=== PATIENT | female | born 1985 | race Caucasian/White ===

== ENCOUNTER 2020-04-20 11:11 | Emergency (ER) | payer OTHER, SELFPAY ==
[2020-04-20] VITALS (7 sets, daily range): BP systolic 94–114; BP diastolic 56–77; PULSE 71–88; RESP 14–18; TEMP 36.4–36.8; O2SAT 98–100
--- NOTE | ~2020-04-20 | CT_ITS ---
EXAMINATION: CT brain wo con EXAM DATE: 04/20/2020 13:44 INDICATION: Dizziness. TECHNIQUE: Spiral CT of the head was performed without contrast. Axial, coronal and sagittal images were reviewed. The dose-length product (DLP) for this examination was 605.33 mGy-cm. The exposure w as tailored according to patient size, and iterative reconstruction (ASIR) was used as additional dos e reduction technique. Comparison is made to prior examination from 05/27/2008. FINDINGS: There is no acute intraparenchymal hemorrhage. No evidence of intraparenchymal brain mass lesion. No evidence of acute infarction. There is no mass effect or midline shift. The ventricles are normal in size. There are no extra-axial collections. There are no acute calvarial fractures. T he orbits are unremarkable. Soft tissue is unremarkable. The visualized sinuses and mastoid air dimas ls are well aerated. IMPRESSION: 1. Normal head CT examination. Reviewed, dictated and finalized at location B.
--- NOTE | 2020-04-20 13:05 | ECG_ITS ---
Measurements Intervals [place] Rate: 64 P: 78 MI: 168 QRS: 81 QRSD: 93 T: 67 QT: 374 QTc: 386 Interpretive Statements SINUS RHYTHM NORMAL ECG Electronically Signed On 04-20-2020 13:30:38 CDT by Juan Lacy D.O.
[2020-04-20 13:15] LABS: Basophils Percent Auto 0.4 % (0.2-1.2); Eosinophils Absolute Auto 0.2 K/mm3 (0-0.3); Eosinophils Percent Auto 1.6 % (0-4.4); Hematocrit 38.4 % (37.0-47.0); Hemoglobin 12.7 g/dL (12.0-15.0); Immature Granulocyte Absolute 0.04 K/mm3 (0.00-0.031); Immature Granulocyte Percent A 0.4 % (0-0.5); Lymphocytes Absolute Auto 1.43 K/mm3 (0.9-3.2); Mean Corpuscular HGB Conc 33.1 g/dl (32-36); Mean Corpuscular Hemoglobin 30.8 pg (26-34); Mean Platelet Volume 9.9 fl (7.4-10.4); Monocytes Absolute Auto 0.7 K/mm3 (0.1-0.6); Monocytes Percent Auto 6.8 % (2.6-8.5); Neutrophils Absolute Auto 7.2 K/mm3 (1.3-6.7); Neutrophils Percent Auto 75.8 % (45.5-73.1); Platelet Count Result 193 k/mm3 (150-375); Red Blood Count 4.13 M/mm3 (4.2-5.4); Red Cell Distribution Width 12.5 % (11.5-14.5); White Blood Count 9.5 K/mm3 (4.5-10.0)
--- NOTE | 2020-04-20 13:22 | ED.GENADULT ---
HPI - General Adult General Chief complaint: Syncope Stated complaint: lightheaded/dizzy Time Seen by Provider: 04/20/20 13:04 Source: patient History of Present Illness HPI narrative: Patient is a 34 y/o female complaining of dizziness and light-headedness starting about 9:30 AM this morning. She states that her dizziness is moderate. [place] started to feel dizzy. She also had some transient blurred vision, difficulty with seeing things. She also felt like unsteady and can't walk straight. She denies passing out or falling down. She denies any pain. Related Data Allergies Allergy/AdvReac Type Severity Reaction Status Date / Time latex AdvReac Mild Rash Verified 11/09/18 17:20 Review of Systems Constitutional: Constitutional: Denies chills, Denies fever(s), Denies headache(s) and Denies weakness Eyes: Eyes: Denies blurry vision ENT: Denies headache(s) and Denies neck pain Cardiovascular: Cardiovascular: Denies chest pain and Denies dyspnea Respiratory: Respiratory: Denies cough and Denies dyspnea Gastrointestinal: Gastrointestinal: Denies abdominal pain, Denies diarrhea, Denies nausea and Denies vomiting Genitourinary: Genitourinary: Denies hematuria and Denies dysuria Musculoskeletal: Musculoskeletal: Denies back pain and Denies neck pain Neurologic: Reports dizziness, Reports headache(s), Reports lack of coordination, Reports Other visual disturbances and Denies weakness [facility] Social History Social History Smoking status: Current every day smoker Alcohol intake: current Gender identity (if verbalized by the patient): Female Exam Const: General: no acute distress and well developed Orientation/consciousness: oriented to person, oriented to place, oriented to time and patient oriented x3 HENMT: Head: normocephalic Ears: external ears normal General nose exam: Normal external nose present Eyes: General: appearance normal, both eyes and all related structures Conjunctivae: conjunctivae normal Neck: Neck: normal visual inspection and full ROM Chest: Chest palpation & inspection: normal inspection of the chest and no tenderness Resp: Effort & Inspection: normal respiratory effort Auscultation: clear to auscultation bilaterally Cardio: Rate: regular rate Rhythm: regular rhythm GI: GI Palp: No abdominal tenderness and Yes Soft to palpation Skin: General skin exam: normal color and turgor normal Neuro: General: oriented to person, oriented to place, oriented to time and patient oriented x3 Cranial nerves: Yes CN's II-XII intact bilaterally Cognition (Neuro): normal cognition Speech: normal speech Motor exam (neuro): 5/5 motor strength present throughout Sensory Exam: normal sensation Coordination: [id number] test normal and [id number] test normal Extrem: General: normal to inspection, full ROM and no pedal edema Psych: Appearance: grossly normal Mental Status: mental status grossly normal Affect: normal affect Course Reevaluation(s) Reevaluation #1: Rechecked. Patient feels better. She is able to ambulate without difficulty. Date: 04/20/20 Vital Signs Vital signs: Vital Signs Temperature 36.4 C 04/20/20 11:30 Pulse Rate 83 04/20/20 11:30 Respiratory Rate 18 04/20/20 11:30 Blood Pressure 100/72 04/20/20 11:30 Pulse Oximetry 100 04/20/20 11:30 Temperature 36.8 C 04/20/20 13:03 Pulse Rate 84 04/20/20 16:37 Respiratory Rate 16 04/20/20 16:37 Blood Pressure 94/56 L 04/20/20 16:37 Pulse Oximetry 98 04/20/20 16:37 Medical Decision Making Vital Signs Vital Signs: Vital Signs Temperature 36.4 C 04/20/20 11:30 Pulse Rate 83 04/20/20 11:30 Respiratory Rate 18 04/20/20 11:30 Blood Pressure 100/72 04/20/20 11:30 Pulse Oximetry 100 04/20/20 11:30 Temperature 36.8 C 04/20/20 13:03 Pulse Rate 84 04/20/20 16:37 Respiratory Rat
[2020-04-20 13:29] LABS: Alanine Aminotransferase 23 U/L (4-35); Albumin Level 4.2 g/dL (3.5-5.1); Alkaline Phosphatase 61 U/L (38-126); Anion Gap 6 mmol/L (8-16); Aspartate Amino Transferase 25 U/L (14-36); Bilirubin,Total 0.3 mg/dL (0.2-1.3); Blood Urea Nitrogen 16 mg/dL (7-17); Calcium 9.3 mg/dL (8.4-10.2); Carbon Dioxide 27 mmol/L (22-30); Chloride 105 mmol/L (98-107); Estimated CRCL calculation 85 ml/min; Estimated Glomerular Filt Rate > 60; Glucose 94 mg/dL (65-105); Sodium 138 mmol/L (137-145)
[2020-04-20] MEDS: SODIUM CHLORIDE 0.9% IV 1,000 ML 999 ML IV CONT (13:49)
[2020-04-20 16:04] LABS: Add Urine Microscopic? YES; Appearance Urine Cloudy (Clear); Bacteria Urine 2+ /hpf; Bilirubin Urine Negative (Negative); Blood Urine Negative (Negative); Color Urine Yellow (Yellow); Glucose Urine UA Negative (Negative); Ketones Urine 1+ mg/dL (Negative); Leukocyte Esterase Ur Negative LEU/UL (Negative); Mucus Urine Heavy /lpf; Nitrate Urine Negative (Negative); Protein Urine 2+ mg/dL (Negative); Specific Grav Ur 1.021 (1.001-1.035); Squamous Epithelial Cell Urine Many /hpf (Few); Urobilinogen Urine Negative mg/dL (<2.0); WBC Urine 16-20 /hpf
== END 2020-04-20 18:07 | disposition home or self-care (01) ==
PROVIDERS: Emergency Provider Emergency Medicine; PCP Family Medicine
DX: R42 Dizziness and giddiness (principal); F17.203 Nicotine dependence unspecified, with withdrawal; R82.998 Other abnormal findings in urine
CPT/HCPCS: 36415; 70450; 80053; 81001; 81025; 85025; 87086; 93005; 99284; J7030

== ENCOUNTER 2020-09-27 14:07 | Emergency (ER) | payer OTHER, SELFPAY ==
[2020-09-27 14:47] VITALS: BP 118/69; PULSE 96; RESP 16; TEMP 36.2; O2SAT 99
--- NOTE | 2020-09-27 14:47 | ED.FEMALEGU ---
HPI - Female Genitourinary General Chief complaint: Urogenital-Female Stated complaint: pain when urination Time Seen by Provider: 09/27/20 14:47 Source: patient Mode of arrival: ambulatory Limitations: no limitations History of Present Illness HPI Narrative: Pavithra Zavala is a 35 yo female with a PMH depression, ADD, borderline personality disorder, bipolar personality, who comes to [facility] with complaints of dysuria for the last 2 days, had blood in her urine yesterday. No vomiting diarrhea no fever Related Data Home Medications Medication Instructions Recorded Confirmed albuterol sulfate 90 mcg INHALATION ACINSULIN 09/27/20 09/27/20 dextroamphetamine-amphetamine 10 mg PO DAILY 09/27/20 09/27/20 lamotrigine 100 mg PO BID 09/27/20 09/27/20 mirtazapine 15 mg PO HS 09/27/20 09/27/20 oxcarbazepine 300 mg PO BID 09/27/20 09/27/20 prazosin 1 mg PO HS 09/27/20 09/27/20 Allergies Allergy/AdvReac Type Severity Reaction Status Date / Time latex AdvReac Mild Rash Verified 11/09/18 17:20 Review of Systems Review of Systems: Narrative: CONSTITUTIONAL: Denies fever, chills, sweats. EYES: Denies visual changes, redness, discharge. ENT: Denies rhinorrhea, congestion, sore throat, otalgia. CARDIOVASCULAR: Denies chest pain, palpitations, edema. RESPIRATORY: denies dyspnea, wheezing, cough GASTROINTESTINAL: Denies abdominal pain, nausea, vomiting, diarrhea. GENITOURINARY: has dysuria, hematuria, abnormal discharge SKIN: Denies rash or itching. NEUROLOGIC: Denies numbness, or focal weakness. PSYCHIATRIC: Denies anxiety or depression. [facility] Past Medical History Medical History (Updated 09/27/20 @ 15:03 by Kim Qureshi CNP) ADHD Anxiety Asthma Bipolar 1 disorder Borderline personality disorder Depression Family History Family History Other Depression Hypertension Social History Social History Smoking status: Current every day smoker Alcohol intake: current Gender identity (if verbalized by the patient): Female Comments At time of signature, I agree with nursing past medical, surgical, social and family history. There is no relevant family history pertinent to the presenting complaint. Exam Narrative: Exam Narrative: GENERAL: This is a well-nourished, well-developed patient, in mild distress. HEAD: normocephalic, atraumatic. EYES: Sclera clear/white. Vision is grossly intact. EARS: External ears normal, Hearing grossly intact. NOSE: External nose normal without nasal discharge, nares without redness, no rhinorrhea. THROAT: Mucous membranes moist, NECK: Neck supple, CARDIOVASCULAR: Regular rate and rhythm without murmurs, gallops, or rubs. RESPIRATORY: Clear to auscultation. Breath sounds equal bilaterally. No wheezes, rales, or rhonchi. GASTROINTESTINAL: Abdomen soft, non-tender, SKIN: warm, intact with no suspicious lesions or rash, good texture and turgor. NEURO: awake, alert, and oriented to person, place and time. There were no obvious focal neurologic abnormalities. Steady gait EXTREMITIES: Normal range of motion. BACK: Nontender without deformity Course Course Emergency Course: Came to [facility] for urinary frequency and cramping at the end of urinating. Started yesterday UA showed trace leukocytes and 2+ blood 2+ protein Start on Keflex and Pyridium Given instructions on hydration and caring for UTI Vital Signs Vital signs: Vital Signs Temperature 97.1 F L 09/27/20 14:47 Pulse Rate 96 09/27/20 14:47 Respiratory Rate 16 09/27/20 14:47 Blood Pressure 118/69 09/27/20 14:47 Pulse Oximetry 99 09/27/20 14:47 Temperature 97.1 F L 09/27/20 14:47 Pulse Rate 96 09/27/20 14:47 Respiratory Rate 16 09/27/20 14:47 Blood Pressure 118/69 09/27/20 14:47 Pulse Oximetry 99 09/27/20 14:47 MDM - Female Genitourinary Differential Diagnosis
== END 2020-09-27 15:08 | disposition home or self-care (01) ==
PROVIDERS: Emergency Provider Nurse Practitioner
DX: N30.01 Acute cystitis with hematuria (principal); F17.200 Nicotine dependence, unspecified, uncomplicated; F31.9 Bipolar disorder, unspecified; F90.9 Attention-deficit hyperactivity disorder, unspecified type; J45.909 Unspecified asthma, uncomplicated
CPT/HCPCS: 81003; 87077; 87086; 87088; 87186; 99213; G0463

== ENCOUNTER 2021-06-29 19:33 | Emergency (ER) | payer OTHER, SELFPAY ==
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
[2021-06-29 19:39] VITALS: BP 118/72; PULSE 96; RESP 16; TEMP 36.7; O2SAT 100
[2021-06-29 21:11] VITALS: BP 117/82; PULSE 97; RESP 20; TEMP 36.7; O2SAT 99
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
[2021-06-29] MEDS: KETOROLAC 30 MG/ML VIAL (*BKC) IM (22:03)
== END 2021-06-29 22:35 | disposition home or self-care (01) ==
PROVIDERS: Emergency Provider Emergency Medicine; PCP Family Medicine
DX: S16.1XXA Strain of muscle, fascia and tendon at neck level, initial encounter (principal); R07.89 Other chest pain; F90.9 Attention-deficit hyperactivity disorder, unspecified type; F41.9 Anxiety disorder, unspecified; J45.909 Unspecified asthma, uncomplicated; F31.9 Bipolar disorder, unspecified; F60.3 Borderline personality disorder; F17.200 Nicotine dependence, unspecified, uncomplicated; V47.5XXA Car driver injured in collision with fixed or stationary object in traffic accident, initial encounter
CPT/HCPCS: 71046; 72040; 96372; 99284; J1885; L0140

== ENCOUNTER 2022-01-22 12:41 | Emergency (ER) | payer OTHER, SELFPAY ==
--- NOTE | 2022-01-22 13:12 | ED.GENADULT ---
HPI - General Adult General Chief complaint: Dental/Oral Stated complaint: dental issues Time Seen by Provider: 01/22/22 13:12 Source: patient Mode of arrival: ambulatory Limitations: no limitations History of Present Illness HPI narrative: 36-year-old female patient presents to the [facility] with complaints of right upper dental pain for the past week. Patient denies take anything for the pain. Patient states she is does not have a dentist to follow-up with. Denies any open or drainage wounds. Denies any swelling. Patient states she is a active smoker. Related Data Home Medications Medication Instructions Recorded Confirmed metoprolol succinate 1 tab-cap PO DAILY 01/22/22 01/22/22 Allergies Allergy/AdvReac Type Severity Reaction Status Date / Time latex AdvReac Mild Rash Verified 01/22/22 12:55 Review of Systems Review of Systems: CONSTITUTIONAL: Denies fever, chills, or sweats. EYES: Denies visual changes, redness, or discharge. ENT: Denies rhinorrhea, congestion, sore throat, or otalgia. Positive right upper dental pain x1 week CARDIOVASCULAR: Denies chest pain, palpitations, or edema. RESPIRATORY: Denies cough or dyspnea. GASTROINTESTINAL: Denies abdominal pain, nausea, vomiting, or diarrhea. GENITOURINARY: Denies dysuria or hematuria. SKIN: Denies rash or itching. MUSCULOSKELETAL: Denies back pain, joint pain, or myalgia. NEUROLOGIC: Denies headache, numbness, or weakness. PSYCHIATRIC: Denies anxiety or depression. PMFSH Past Medical History Medical History ADHD Anxiety Asthma Bipolar 1 disorder Borderline personality disorder Depression Family History Family History Other Depression Hypertension Social History Social History Smoking status: Current every day smoker Alcohol intake: current Gender identity (if verbalized by the patient): Female Comments At the time of my signature I agree with nursing past medical history, surgical, social, and family history. There is no relevant family history pertinent to the presenting complaint. Exam Narrative: GENERAL: Well-appearing, well-nourished, and in no acute distress. HEAD: Normocephalic, atraumatic. EYES: PERRLA and EOMI. ENT: Nares clear, no rhinorrhea or epistaxis. Mucous membranes moist. Patient does have some swollen gums with fiery red erythema noted to the right upper oral cavity from the right cuspid all the way back to the about the second molar. No obvious abscess is noted. No swelling to the face noted. NECK: Supple. No lymphadenopathy CHEST: Clear to auscultation. No respiratory distress. HEART: Regular rate and rhythm. No murmur heard. Normal peripheral pulses. ABDOMEN: Soft, nontender, nondistended, normal active bowel sounds. EXTREMITIES: Normal range of motion. No edema. SKIN: Warm, dry, no rash. NEURO: No focal deficits. Alert and oriented x3. Course Course Level of Care: Express Care Visit Vital Signs Vital signs: Vital Signs Temperature 36.7 C 01/22/22 13:18 Pulse Rate 89 01/22/22 13:18 Respiratory Rate 18 01/22/22 13:18 Blood Pressure 131/90 01/22/22 13:18 Pulse Oximetry 100 01/22/22 13:18 Oxygen Delivery Room Air 01/22/22 13:18 Temperature 36.7 C 01/22/22 13:18 Pulse Rate 89 01/22/22 13:18 Respiratory Rate 18 01/22/22 13:18 Blood Pressure 131/90 01/22/22 13:18 Pulse Oximetry 100 01/22/22 13:18 Oxygen Delivery Room Air 01/22/22 13:18 Vital signs reviewed The patient has been informed that they may have pre-hypertension or Hypertension based on a BP reading in the department. I recommend that the patient call the primary care provider listed on their discharge instructions or a physician of their choice this week to arrange follow up for further evaluation of possible pre-hypertension or Hypertens
[2022-01-22 13:18] VITALS: BP 131/90; PULSE 89; RESP 18; TEMP 36.7; O2SAT 100
== END 2022-01-22 14:06 | disposition home or self-care (01) ==
PROVIDERS: Emergency Provider Nurse Practitioner Family; PCP Family Medicine
DX: K02.9 Dental caries, unspecified (principal); F17.200 Nicotine dependence, unspecified, uncomplicated; J45.909 Unspecified asthma, uncomplicated
CPT/HCPCS: 99213; G0463

== ENCOUNTER 2022-10-17 19:01 | Emergency (ER) | payer OTHER, SELFPAY ==
[2022-10-17 19:11] VITALS: BP 108/76; PULSE 86; RESP 16; TEMP 36.5; O2SAT 100
--- NOTE | 2022-10-17 19:32 | ED.DENTAL ---
HPI - Dental/Oral General Chief complaint: Dental/Oral Stated complaint: Dental Pain Time Seen by Provider: 10/17/22 19:32 Mode of arrival: ambulatory Limitations: no limitations History of Present Illness HPI Narrative: 37-year-old female presents concern for dental pain, broken tooth, pain inside her mouth. She reports she broke a tooth in April, the last several days the tooth has been rubbing on her gums causing pain on the inside of her mouth. Reports it is painful to chew. Reports she has been using [id number] dental pain reliever. She also reports lower right dental pain MD Complaint: tooth pain Related Data Home Medications Medication Instructions Recorded Confirmed levothyroxine 200 mcg tablet 200 mcg PO DAILY 10/17/22 10/17/22 quetiapine 50 mg tablet,extended 50 mg PO DAILY 10/17/22 10/17/22 release 24 hr Allergies Allergy/AdvReac Type Severity Reaction Status Date / Time latex AdvReac Mild Rash Verified 10/17/22 19:18 Review of Systems Review of Systems: CONSTITUTIONAL: Denies malaise, chills, sweats, or fever. EYES: Denies visual changes ENT: Denies rhinorrhea, congestion, sinus pain, otalgia or sore throat. Reports right upper and lower dental pain, pain inside her cheek CARDIOVASCULAR: Denies chest pain, palpitations RESPIRATORY: Denies cough or dyspnea. SKIN: Denies rash or itching. MUSCULOSKELETAL: Denies myalgia. NEUROLOGIC: Denies numbness, weakness, or headache. All systems reviewed & are unremarkable except as noted in HPI and below PMFSH Past Medical History Medical History ADHD Anxiety Asthma Bipolar 1 disorder Borderline personality disorder Depression Family History Family History Other Depression Hypertension Social History Social History Smoking status: Current every day smoker Alcohol intake: current Gender identity (if verbalized by the patient): Female Comments At time of signature, agree with nursing past medical, surgical, social and family history. There is no relevant family history pertinent to the presenting complaint Exam Narrative: GENERAL: Well-appearing, well-nourished, and in no acute distress. HEAD: Normocephalic, atraumatic. EYES: PERRLA, sclera clear ENT: Nares clear, turbinates pink, no rhinorrhea or epistaxis. Mucous membranes moist. TM pearly weaver with sharp light reflex bilaterally; no tragal tenderness. Oropharynx without erythema or lesions. Tonsils not enlarged and without exudate. Right-sided missing teeth, broken teeth, caries; tooth number 2 broken with the surrounding mucosa erythematous, excoriated, edematous related to trauma from the broken to NECK: Supple. No lymphadenopathy. CHEST: No respiratory distress. Speaks in full sentences. HEART: Regular rate and rhythm. SKIN: Warm, dry, no visible rash. NEURO: Alert and oriented x3. PSYCH: Normal mood and affect Course Course Emergency Course: Patient is aware of diagnosis, understands and agrees to treatment plan. Anticipatory guidance given. Patient agrees to follow-up as directed and is aware of reasons to seek care at the emergency department. Portions of this record may have been created with voice recognition software Level of Care: Express Care Visit Vital Signs Vital signs: Vital Signs Temperature 97.7 F 10/17/22 19:11 Pulse Rate 86 10/17/22 19:11 Respiratory Rate 16 10/17/22 19:11 Blood Pressure 108/76 10/17/22 19:11 Pulse Oximetry 100 10/17/22 19:11 Oxygen Delivery Room Air 10/17/22 19:11 Temperature 97.7 F 10/17/22 19:11 Pulse Rate 86 10/17/22 19:11 Respiratory Rate 16 10/17/22 19:11 Blood Pressure 108/76 10/17/22 19:11 Pulse Oximetry 100 10/17/22 19:11 Oxygen Delivery Room Air 10/17/22 19:11 Reviewed. MDM - Dental/Oral MDM Narrative M
== END 2022-10-17 19:46 | disposition home or self-care (01) ==
PROVIDERS: Emergency Provider Nurse Practitioner; PCP Family Medicine
DX: K08.89 Other specified disorders of teeth and supporting structures (principal); K13.70 Unspecified lesions of oral mucosa; F17.200 Nicotine dependence, unspecified, uncomplicated; J45.909 Unspecified asthma, uncomplicated; F31.9 Bipolar disorder, unspecified
CPT/HCPCS: 99213; G0463

== ENCOUNTER 2022-12-30 16:30 | Emergency (ER) | payer OTHER, SELFPAY ==
--- NOTE | 2022-12-30 16:44 | PC.NURSE ---
in br to obtain ua spec.
[2022-12-30 16:55] VITALS: BP 107/72; PULSE 81; RESP 16; TEMP 36.8; O2SAT 99
--- NOTE | 2022-12-30 17:08 | ED.FEMALEGU ---
HPI - Female Genitourinary General Chief complaint: Urogenital-Female Stated complaint: UTI Time Seen by Provider: 12/30/22 17:02 Source: patient and RN notes reviewed Mode of arrival: ambulatory Limitations: no limitations History of Present Illness HPI Narrative: Patient presents today with a one-week history of dysuria, urinary frequency, and low back pain. Denies abdominal pain, fever, nausea or vomiting. Currently rates her back pain 5/10 and has tried no [id number] treatment prior to arrival. No recent antibiotic use. Related Data Home Medications Medication Instructions Recorded Confirmed levothyroxine 200 mcg tablet 200 mcg PO DAILY 10/17/22 10/17/22 Vraylar 12/30/22 albuterol sulfate 90 mcg/actuation inhalation 12/30/22 aerosol inhaler mirtazapine 15 mg tablet mg 12/30/22 Allergies Allergy/AdvReac Type Severity Reaction Status Date / Time latex AdvReac Mild Rash Verified 12/30/22 16:42 Review of Systems Review of Systems: CONSTITUTIONAL: Denies body aches, fever, chills, or sweats. EYES: Denies visual changes, redness, or discharge. ENT: Denies rhinorrhea, congestion, sore throat, or otalgia. CARDIOVASCULAR: Denies chest pain, palpitations, or edema. RESPIRATORY: Denies cough or dyspnea. GASTROINTESTINAL: Denies abdominal pain, nausea, vomiting, or diarrhea. GENITOURINARY: Denies hematuria.+ dysuria, frequency SKIN: Denies rash, itching, or wounds. MUSCULOSKELETAL: Denies joint pain, or myalgia.+ back pain NEUROLOGIC: Denies headache, numbness, tingling, or weakness. PSYCH: Denies depression or anxiety. [facility] Past Medical History Medical History ADHD Anxiety Asthma Bipolar 1 disorder Borderline personality disorder Depression Family History Family History Other Depression Hypertension Social History Social History Smoking status: Current every day smoker Alcohol intake: current Gender identity (if verbalized by the patient): Female Comments At time of signature, I have reviewed and agree with nursing past medical, surgical, social and family history unless otherwise noted. Please see nursing chart for further information. There is no relevant family history pertinent to the presenting complaint Exam Narrative: GENERAL: Well-appearing, well-nourished, and in no acute distress. HEAD: Normocephalic, atraumatic. EYES: EOMI. No redness or drainage. Conjunctivae normal. ENT: Mucous membranes pink and moist. NECK: Normal AROM. CHEST: No respiratory distress. Clear to auscultation. HEART: Regular rate and rhythm. No murmur appreciated. Normal peripheral pulses. ABDOMEN: Soft, nontender, nondistended, normal active bowel sounds. EXTREMITIES: Normal range of motion. No edema. SKIN: Warm, dry, no rash. Capillary refill normal. Normal skin turgor. NEURO: No focal deficits. Alert and oriented x3. Gait steady. PSYCH: Normal affect. No signs of depression or anxiety. Course Course Level of Care: Express Care Visit Vital Signs Vital signs: Vital Signs Temperature 98.3 F 12/30/22 16:55 Pulse Rate 81 12/30/22 16:55 Respiratory Rate 16 12/30/22 16:55 Blood Pressure 107/72 12/30/22 16:55 Pulse Oximetry 99 12/30/22 16:55 Oxygen Delivery Room Air 12/30/22 16:55 Temperature 98.3 F 12/30/22 16:55 Pulse Rate 81 12/30/22 16:55 Respiratory Rate 16 12/30/22 16:55 Blood Pressure 107/72 12/30/22 16:55 Pulse Oximetry 99 12/30/22 16:55 Oxygen Delivery Room Air 12/30/22 16:55 Reviewed MDM - Female Genitourinary MDM Narrative Medical decision making narrative: UA suggests infection. Will treat with Keflex. Patient also requesting prescription for Diflucan. Anticipatory guidance given. Differential Diagnosis Differential diagnosis: L
== END 2022-12-30 17:15 | disposition home or self-care (01) ==
PROVIDERS: Emergency Provider Nurse Practitioner; PCP Family Medicine
DX: N30.01 Acute cystitis with hematuria (principal); B95.1 Streptococcus, group B, as the cause of diseases classified elsewhere; F17.200 Nicotine dependence, unspecified, uncomplicated; J45.909 Unspecified asthma, uncomplicated
CPT/HCPCS: 81003; 87077; 87086; 87088; 99213; G0463

== ENCOUNTER 2023-01-11 23:41 | Emergency (ER) | payer OTHER, SELFPAY ==
[2023-01-11 23:50] VITALS: BP 122/83; PULSE 107; RESP 14; TEMP 36.7; O2SAT 97
[2023-01-12 00:54] VITALS: BP 119/95; PULSE 80; RESP 18; O2SAT 100
[2023-01-12] MEDS: SODIUM CHLORIDE 0.9% IV 1,000 ML 999 ML IV CONT (01:08)
[2023-01-12 01:22] LABS: Appearance Urine Clear (Clear); Bacteria Urine 4+ /hpf; Bilirubin Urine Negative (Negative); Blood Urine Negative (Negative); Color Urine Yellow (Yellow); Glucose Urine UA Negative (Negative); Ketones Urine Negative (Negative); Leukocyte Esterase Ur 2+ LEU/UL (Negative); Nitrate Urine Positive (Negative); Non Pathogenic Casts 0-2; Protein Urine 1+ mg/dL (Negative); RBC Urine 0-2 /hpf (0-2); Specific Grav Ur 1.021 (1.001-1.035); Squamous Epithelial Cell Urine Occasional /hpf (Few); WBC Urine 51-100 /hpf; pH Urine 6.5 (5.0-9.0)
[2023-01-12 01:26] LABS: Add Urine Microscopic? YES
[2023-01-12 01:34] LABS: Basophils Absolute Auto 0.1 K/mm3 (0.0-0.1); Basophils Percent Auto 0.9 % (0.2-1.2); Eosinophils Absolute Auto 0.2 K/mm3 (0-0.3); Eosinophils Percent Auto 2.4 % (0-4.4); Hematocrit 37.8 % (37.0-47.0); Hemoglobin 12.2 g/dL (12.0-15.0); Immature Granulocyte Absolute 0.05 K/mm3 (0.00-0.031); Immature Granulocyte Percent A 0.6 % (0-0.5); Lymphocytes Absolute Auto 3.17 K/mm3 (0.9-3.2); Mean Corpuscular HGB Conc 32.3 g/dl (32-36); Mean Corpuscular Volume 99.2 fl (80-100); Mean Platelet Volume 9.3 fl (7.4-10.4); Monocytes Absolute Auto 0.7 K/mm3 (0.1-0.6); Monocytes Percent Auto 7.3 % (2.6-8.5); Neutrophils Absolute Auto 4.9 K/mm3 (1.3-6.7); Neutrophils Percent Auto 53.8 % (45.5-73.1); Platelet Count Result 304 k/mm3 (150-375); Red Blood Count 3.81 M/mm3 (4.2-5.4); Red Cell Distribution Width 13.8 % (11.5-14.5); White Blood Count 9.1 K/mm3 (4.5-10.0)
[2023-01-12 01:37] LABS: Alanine Aminotransferase 42 U/L (6-35); Albumin Level 4.9 g/dL (3.5-5.1); Alkaline Phosphatase 58 U/L (38-126); Anion Gap 5 mmol/L (8-16); Aspartate Amino Transferase 68 U/L (14-36); Bilirubin,Total 0.6 mg/dL (0.2-1.3); Blood Urea Nitrogen 18 mg/dL (7-17); Calcium 9.7 mg/dL (8.4-10.2); Carbon Dioxide 34 mmol/L (22-30); Chloride 101 mmol/L (98-107); Estimated Glomerular Filt Rate 55; Glucose 91 mg/dL (65-110); Potassium 3.3 mmol/L (3.4-5.0); Sodium 140 mmol/L (137-145)
--- NOTE | 2023-01-12 01:51 | ED.FEMALEGU ---
HPI - Female Genitourinary General Chief complaint: Urogenital-Female Stated complaint: UTI? Time Seen by Provider: 01/12/23 01:38 History of Present Illness HPI Narrative: 37-year-old female presented to the emergency department for evaluation of burning with urination. Patient was recently treated for a urinary tract infection 12/30 and patient was started on Keflex. Patient does report some mild abdominal pain and burning with urination. Patient states her symptoms have not improved since being on antibiotics. Urine culture showed normal sabino. Patient states she has also been having discharge consistent with a yeast infection. Related Data Home Medications Medication Instructions Recorded Confirmed levothyroxine 200 mcg tablet 200 mcg PO DAILY 10/17/22 10/17/22 Vraylar 12/30/22 albuterol sulfate 90 mcg/actuation inhalation 12/30/22 aerosol inhaler mirtazapine 15 mg tablet mg 12/30/22 Allergies Allergy/AdvReac Type Severity Reaction Status Date / Time latex AdvReac Mild Rash Verified 01/12/23 00:59 Review of Systems Review of Systems: All systems reviewed & are unremarkable except as noted in HPI and below PMFSH Past Medical History Medical History ADHD Anxiety Asthma Bipolar 1 disorder Borderline personality disorder Depression Family History Family History Other Depression Hypertension Social History Social History Smoking status: Current every day smoker Alcohol intake: current Gender identity (if verbalized by the patient): Female Exam Narrative: APPEARANCE: Well appearing, no pain, no distress, well-nourished. HEAD: normocephalic, atraumatic. EYES: PERRLA/EOMI, conjunctivae clear. NOSE: Normal no drainage NECK: Supple. No adenopathy, no masses. RESPIRATORY: Airway patent, respirations nonlabored. Clear to auscultation bilaterally, no rales, rhonchi, wheezing. CARDIOVASCULAR: Regular rate and rhythm without murmurs rubs or gallops. ABDOMINAL: Soft, suprapubic tenderness MUSCULOSKELETAL: Moves all extremities. Strength/ROM intact, No edema, No calf tenderness. NEURO: Alert. Cranial nerves II through XII intact. Grossly intact SKIN: Warm, dry. Normal Color Course Course Emergency Course: 37-year-old female presented to ED for evaluation of worsening urinary tract infection. UA is consistent with a UTI. Patient is afebrile with no leukocytosis. Urine culture is pending. Patient was started on Levaquin and Keflex was stopped. New urine culture was ordered. Patient was also started on fluconazole for her yeast infection. Patient was provided Pyridium for her dysuria. Patient was encouraged of close follow-up with her primary care physician. Vital Signs Vital signs: Vital Signs Temperature 98.1 F 01/11/23 23:50 Pulse Rate 107 H 01/11/23 23:50 Respiratory Rate 14 01/11/23 23:50 Blood Pressure 122/83 01/11/23 23:50 Pulse Oximetry 97 01/11/23 23:50 Temperature 98.1 F 01/11/23 23:50 Pulse Rate 80 01/12/23 00:54 Respiratory Rate 18 01/12/23 00:54 Blood Pressure 119/95 H 01/12/23 00:54 Pulse Oximetry 100 01/12/23 00:54 Oxygen Delivery Room Air 01/12/23 00:54 MDM - Female Genitourinary Differential Diagnosis Differential diagnosis: Likely urinary tract infection, bacterial vaginosis and cystitis Lab Data Attestation: I reviewed the patient's lab results. 01/12/23 01:10 01/12/23 01:10 Labs: Lab Results 01/12/23 Range/Units 01:10 WBC 9.1 (4.5-10.0) K/mm3 RBC 3.81 L (4.2-5.4) M/mm3 Hgb 12.2 (12.0-15.0) g/dL Hct 37.8 (37.0-47.0) % MCV 99.2 (80-100) fl MCH 32.0 (26-34) pg MCHC 32.3 (32-36) g/dl RDW 13.8 (11.5-14.5) % Plt Count 304 D (150-375) k/mm3 MPV 9.3 (7.4-10.4) fl Immatur
[2023-01-12] MEDS: levoFLOXacin 750 MG TABLET PO (02:45)
[2023-01-12] MEDS: FLUCONAZOLE 150 MG TABLET PO (02:45)
== END 2023-01-12 02:55 | disposition home or self-care (01) ==
PROVIDERS: Emergency Provider Emergency Medicine; PCP Family Medicine
DX: N39.0 Urinary tract infection, site not specified (principal); B37.31 Acute candidiasis of vulva and vagina; J45.909 Unspecified asthma, uncomplicated; F90.9 Attention-deficit hyperactivity disorder, unspecified type; F41.9 Anxiety disorder, unspecified; F31.9 Bipolar disorder, unspecified; F60.3 Borderline personality disorder; F17.200 Nicotine dependence, unspecified, uncomplicated
CPT/HCPCS: 36415; 80053; 81001; 85025; 87077; 87086; 87088; 87186; 96360; 99283; A9270; J7030

== ENCOUNTER 2023-01-16 14:54 | Emergency (ER) | payer OTHER, SELFPAY ==
[2023-01-16 15:13] VITALS: BP 109/74; PULSE 88; RESP 16; TEMP 37.6; O2SAT 100
--- NOTE | 2023-01-16 15:27 | ED.FEMALEGU ---
HPI - Female Genitourinary General Chief complaint: Urogenital-Female Stated complaint: STD testing Time Seen by Provider: 01/16/23 15:27 Source: patient and RN notes reviewed Mode of arrival: ambulatory Limitations: no limitations History of Present Illness HPI Narrative: 37-year-old female presented for STD testing. About 3 days ago she was informed by her partner he tested positive for syphilis. Reports white vaginal discharge for a long time. Patient is currently treated with levaquin for a UTI. Reports frequent BV infections. Denies abdominal pain, flank pain, dyspareunia, n/v/d/f/c. Hx hysterectomy. Related Data Home Medications Medication Instructions Recorded Confirmed levothyroxine 200 mcg tablet 200 mcg PO DAILY 10/17/22 10/17/22 metoprolol tartrate 25 mg tablet mg 01/16/23 01/16/23 Allergies Allergy/AdvReac Type Severity Reaction Status Date / Time latex AdvReac Mild Rash Verified 01/16/23 15:12 Review of Systems Review of Systems: CONSTITUTIONAL: Denies body aches, fever, chills, or sweats. CARDIOVASCULAR: Denies chest pain, palpitations, or edema. RESPIRATORY: Denies cough or dyspnea. GASTROINTESTINAL: Denies abdominal pain, nausea, vomiting, or diarrhea. GENITOURINARY: Denies dysuria, frequency, urgency, hematuria, flank pain SKIN: Denies rash, itching, or wounds. MUSCULOSKELETAL: Denies back pain or myalgia. [facility] Past Medical History Medical History ADHD Anxiety Asthma Bipolar 1 disorder Borderline personality disorder Depression Family History Family History Other Depression Hypertension Social History Social History Smoking status: Current every day smoker Alcohol intake: current Gender identity (if verbalized by the patient): Female Comments At time of signature, I have reviewed and agree with nursing past medical, surgical, social and family history unless otherwise noted. Please see nursing chart for further information. There is no relevant family history pertinent to the presenting complaint Exam Narrative: GENERAL: Well-appearing and in no acute distress. ENT: Mucous membranes pink and moist. NECK: Normal AROM. Supple. CHEST: No respiratory distress. Clear to auscultation. HEART: Regular rate and rhythm. ABDOMEN: Soft, nontender, nondistended, normal active bowel sounds. No CVA tenderness : normal vaginal introitus, with white milky discharge; no bleeding, laceration or lesions. No swelling. Nontender. Chaperoned by Pat ALFONSO MUSCULOSKELETAL: No bony tenderness. SKIN: Warm, dry, no rash. NEURO: No focal deficits. Alert and oriented x3. Gait steady. Course Course Emergency Course: Patient is aware of diagnosis, understands and agrees to treatment plan. Anticipatory guidance given. Patient agrees to follow-up as directed and is aware of reasons to seek care at the emergency department. Portions of this record may have been created with voice recognition software Level of Care: Express Care Visit Vital Signs Vital signs: Vital Signs Temperature 99.6 F 01/16/23 15:13 Pulse Rate 88 01/16/23 15:13 Respiratory Rate 16 01/16/23 15:13 Blood Pressure 109/74 01/16/23 15:13 Pulse Oximetry 100 01/16/23 15:13 Oxygen Delivery Room Air 01/16/23 15:13 Temperature 99.6 F 01/16/23 15:13 Pulse Rate 88 01/16/23 15:13 Respiratory Rate 16 01/16/23 15:13 Blood Pressure 109/74 01/16/23 15:13 Pulse Oximetry 100 01/16/23 15:13 Oxygen Delivery Room Air 01/16/23 15:13 Reviewed MDM - Female Genitourinary MDM Narrative Medical decision making narrative: Patient presenting with concern for STD and known exposure to syphilis. Urine specimen collected for GC, chlamydia, trich. Informed Pt will be contacted w/ results when they become availab
[2023-01-16] MEDS: cefTRIAXone 500 MG, LIDOCAINE HCL 1% LOCAL INJ 1 ML IM (15:49)
== END 2023-01-16 16:12 | disposition home or self-care (01) ==
PROVIDERS: Emergency Provider Nurse Practitioner Family; PCP Family Medicine
DX: Z20.2 Contact with and (suspected) exposure to infections with a predominantly sexual mode of transmission (principal); F17.200 Nicotine dependence, unspecified, uncomplicated; J45.909 Unspecified asthma, uncomplicated; F90.9 Attention-deficit hyperactivity disorder, unspecified type
CPT/HCPCS: 87491; 87591; 87661; 96372; 99214; G0463; J0696

== ENCOUNTER 2023-09-10 00:19 | Emergency (ER) | payer OTHER, SELFPAY ==
--- NOTE | 2023-09-10 00:21 | ECG_ITS ---
Measurements Intervals [place] Rate: 68 P: 78 ID: [id number] QRS: 77 QRSD: 100 T: 73 QT: 392 QTc: 418 Interpretive Statements SINUS RHYTHM INDETERMINATE AXIS INCOMPLETE RIGHT BUNDLE BRANCH BLOCK [90+ ms QRS DURATION, TERMINAL R IN V1/V2, 40+ ms S IN I/aVL/V4/V5/V6] BORDERLINE ECG COMPARED TO ECG 04/20/2020 13:16:47 INCOMPLETE RIGHT BUNDLE-BRANCH BLOCK NOW PRESENT Electronically Signed On 09-10-2023 18:18:16 [facility] by Alfonso Odell M.D.
[2023-09-10 00:28] VITALS: BP 113/71; PULSE 65; RESP 16; TEMP 36.7; O2SAT 100
[2023-09-10 02:49] VITALS: BP 101/82; PULSE 68; RESP 13; O2SAT 100
--- NOTE | 2023-09-10 03:09 | ED.GENADULT ---
HPI - General Adult General Chief complaint: Arrhythmia/Palpitations Stated complaint: elevated HR, generalized swelling Time Seen by Provider: 09/10/23 02:36 History of Present Illness HPI narrative: this is a 38-year-old female with history of anxiety presenting for palpitations. Patient says she was at work she started feel her heart rate elevated, she felt tingling around her hands feet and mouth. She had to leave work and come to the hospital. Since then her symptoms have resolved and she feels good. Patient knows that she has severe anxiety. She says that she does not like medication though. Patient has no other complaints this time Related Data Home Medications Medication Instructions Recorded Confirmed levothyroxine 200 mcg tablet 200 mcg PO DAILY 10/17/22 10/17/22 metoprolol tartrate 25 mg tablet mg 01/16/23 01/16/23 Allergies Allergy/AdvReac Type Severity Reaction Status Date / Time latex AdvReac Mild Rash Verified 01/16/23 15:12 [facility] Past Medical History Medical History ADHD Anxiety Asthma Bipolar 1 disorder Borderline personality disorder Depression Family History Family History Other Depression Hypertension Social History Social History Smoking status: Current every day smoker Alcohol intake: current Gender identity (if verbalized by the patient): Female Exam Narrative: APPEARANCE: No apparent distress. Head: atraumatic. EYES: EOMI, NOSE: Atraumatic NECK: Trachea midline RESPIRATORY: No increased rate of breathing CTAB CARDIOVASCULAR: RRR, no edema ABDOMINAL: Non-distended MUSCULOSKELETAl: No obvious deformities NEURO: Alert. Moving 4/4 extremities SKIN:: Warm, dry. Normal color PSYCHIATRIC: Normal affect Course Vital Signs Vital signs: Vital Signs Temperature 98.0 F 09/10/23 00:28 Pulse Rate 65 09/10/23 00:28 Respiratory Rate 16 09/10/23 00:28 Blood Pressure 113/71 09/10/23 00:28 Pulse Oximetry 100 09/10/23 00:28 Oxygen Delivery Room Air 09/10/23 00:28 Temperature 98.0 F 09/10/23 00:28 Pulse Rate 68 09/10/23 02:49 Respiratory Rate 13 09/10/23 02:49 Blood Pressure 101/82 09/10/23 02:49 Pulse Oximetry 100 09/10/23 02:49 Oxygen Delivery Room Air 09/10/23 00:28 Medical Decision Making MDM Narrative Medical decision making narrative: -Course: 38-year-old female severe anxiety presenting after a panic attack. Patient has been asymptomatic since she was here in the emergency department. Patient is requesting a work note. Patient discharged. 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 [employer] -Independent interpretation of studies: Independent EKG interpretation: Rhythm [sinus], Rate [68], [place] -[normal], [place] -[normal], QRS [narrow], QTC [normal], T waves -[negative for concerning inversions], ST Segments - [Negative for concerning elevations] Final interpretations: [Normal Sinus Rhythm] -Shared decision making / Disposition: discharged Vital Signs Vital Signs: Vital Signs Temperature 98.0 F 09/10/23 00:28 Pulse Rate 65 09/10/23 00:28 Respiratory Rate 16 09/10/23 00:28 Blood Pressure 113/71 09/10/23 00:28 Pulse Oximetry 100 09/10/23 00:28 Oxygen Delivery Room Air 09/10/23 00:28 Temperature 98.0 F 09/10/23 00:28 Pulse Rate 68 09/10/23 02:49 Respiratory Rate 13 09/10/23 02:49 Blood Pressure 101/82 09/10/23 02:49 Pulse Oximetry 100 09/10/23 02:49 Oxygen Delivery Room Air 09/10/23 00:28 Discharge Plan Discharge Clinical Impression: Panic disorder Patient Disposition: Home, Self-Care Condition: Stable In
--- NOTE | 2023-09-10 03:12 | PC.NURSE ---
Patient states she feels better and is ready to go home. ERP aware.
== END 2023-09-10 03:27 | disposition home or self-care (01) ==
LOC: ANHED 03:17
PROVIDERS: Emergency Provider Emergency Medicine; PCP Family Medicine
DX: F41.0 Panic disorder [episodic paroxysmal anxiety] (principal); F17.200 Nicotine dependence, unspecified, uncomplicated
CPT/HCPCS: 93005; 99283

== ENCOUNTER 2023-10-31 17:18 | Emergency (ER) | payer OTHER, SELFPAY ==
[2023-10-31 17:25] VITALS: BP 106/74; PULSE 85; RESP 16; TEMP 36.6; O2SAT 100
--- NOTE | 2023-10-31 17:48 | ED.EYEPROB ---
HPI - Eye Problem General Chief complaint: Eye Problems Stated complaint: left eye red,discharge work note Time Seen by Provider: 10/31/23 17:48 Source: patient Mode of arrival: ambulatory Limitations: no limitations History of Present Illness HPI Narrative: 38 y/o female presented for c/o left eye irritation, onset this morning, eye pressure and drainage. States eye was crusted when she woke this morning. She slept in contact lens and removed it this morning. Reports green drainage throughout the day. rates pain 7/10, described as pressure. Endorses exposure to children 3 days ago. Denies vision changes, headache, dizziness, n/v/d/f/c. chief complaint: eye pain Related Data Home Medications Medication Instructions Recorded Confirmed levothyroxine 200 mcg tablet 200 mcg PO DAILY 10/17/22 10/31/23 albuterol sulfate 90 mcg/actuation 1 inh inhalation DIRECTED 10/31/23 10/31/23 aerosol inhaler Allergies Allergy/AdvReac Type Severity Reaction Status Date / Time latex AdvReac Mild Rash Verified 10/31/23 17:36 Review of Systems Review of Systems: CONSTITUTIONAL: Denies body aches, fever, chills EYES:Endorses redness and pain to left eye; denies FB sensation, photophobia, visual changes ENT: Denies rhinorrhea, congestion, sore throat, or otalgia. CARDIOVASCULAR: Denies chest pain, palpitations RESPIRATORY: Denies cough or dyspnea. GASTROINTESTINAL: Denies abdominal pain, nausea, vomiting, or diarrhea. SKIN: Denies rash, itching, or wounds. MUSCULOSKELETAL: Denies back pain, joint pain, or myalgia. NEUROLOGIC: Denies headache, numbness, tingling, or weakness. All systems reviewed & are unremarkable except as noted in HPI and below PMFSH Past Medical History Medical History ADHD Anxiety Asthma Bipolar 1 disorder Borderline personality disorder Depression Family History Family History Other Depression Hypertension Social History Social History Smoking status: Current every day smoker Alcohol intake: current Gender identity (if verbalized by the patient): Female Comments At time of signature, I have reviewed and agree with nursing past medical, surgical, social and family history unless otherwise noted. Please see nursing chart for further information. There is no relevant family history pertinent to the presenting complaint Exam Narrative: GENERAL: Well-appearing HEAD: Normocephalic, atraumatic. EYES: Left conjunctival injection, purulent drainage; no eye lid swelling. PERRLA, EOMI. Lid eversion shows no FB. No corneal abrasion on hernandez exam. ENT: Mucous membranes pink and moist. No rhinorrhea. TMs normal bilaterally. Throat normal. Uvula midline. CHEST: Clear to auscultation. HEART: Regular rate and rhythm. SKIN: Warm, dry, no rash. Normal skin turgor. NEURO: No focal deficits. Alert and oriented x3 PSYCH: Normal affect. Course Course Emergency Course: Patient is aware of diagnosis, understands and agrees to treatment plan. Anticipatory guidance given. Patient agrees to follow-up as directed and is aware of reasons to seek care at the emergency department. Portions of this record may have been created with voice recognition software Level of Care: Express Care Visit Vital Signs Vital signs: Vital Signs Temperature 97.8 F 10/31/23 17:25 Pulse Rate 85 10/31/23 17:25 Respiratory Rate 16 10/31/23 17:25 Blood Pressure 106/74 10/31/23 17:25 Pulse Oximetry 100 10/31/23 17:25 Oxygen Delivery Room Air 10/31/23 17:25 Temperature 97.8 F 10/31/23 17:25 Pulse Rate 85 10/31/23 17:25 Respiratory Rate 16 10/31/23 17:25 Blood Pressure 106/74 10/31/23 17:25 Pulse Oximetry 100 10/31/23 17:25 Oxygen Delivery Room Air 10/31/23 17:25 Procedures FB Removal Eye
[2023-10-31] MEDS: TETRACAINE HCL 0.5% OPHTH SOLN 4 ML BTL AFFCTD EYE (17:58)
[2023-10-31] MEDS: DACRIOSE EYE IRRIGATION 118 ML BOTTLE AFFCTD EYE (17:58)
[2023-10-31] MEDS: FLUORESCEIN SOD 1 MG/STRIP AFFCTD EYE (17:58)
== END 2023-10-31 18:11 | disposition home or self-care (01) ==
PROVIDERS: Emergency Provider Nurse Practitioner Family; PCP Family Medicine
DX: H10.9 Unspecified conjunctivitis (principal); F17.200 Nicotine dependence, unspecified, uncomplicated; J45.909 Unspecified asthma, uncomplicated
CPT/HCPCS: 99213; A9270; G0463

== ENCOUNTER 2024-01-25 12:03 | Emergency (ER) | payer OTHER, SELFPAY ==
[2024-01-25 12:29] VITALS: BP 122/90; PULSE 108; RESP 16; TEMP 36.5; O2SAT 100
--- NOTE | 2024-01-25 13:30 | ED.ABDPAIN ---
HPI - Abdominal Pain General Chief Complaint: Abdominal Pain Stated Complaint: Abdominal Pain Time Seen by Provider: 01/25/24 13:31 Source: patient, RN notes reviewed and old records reviewed Mode of arrival: ambulatory Limitations: no limitations History of Present Illness HPI narrative: patient presents with complaints of abdominal pain. She reports that abdominal pain has been chronic since 2010. She has seen GI in the past, reports she has never gotten a definitive diagnosis. She states pain today is her typical pain. It is crampy, diffuse. Does not localize. She is complaining of some associated diarrhea off and on, also since 2010 Related Data Home Medications Medication Instructions Recorded Confirmed levothyroxine 200 mcg tablet 200 mcg PO DAILY 10/17/22 01/25/24 albuterol sulfate 90 mcg/actuation 1 inh inhalation DIRECTED 10/31/23 01/25/24 aerosol inhaler Allergies Allergy/AdvReac Type Severity Reaction Status Date / Time latex AdvReac Mild Rash Verified 01/25/24 13:00 Review of Systems Review of Systems: All systems reviewed & are unremarkable except as noted in HPI and below Constitutional: Constitutional: Reports no additional constitutional complaints ENT: Reports system reviewed and no additional complaints, except as documented Cardiovascular: Cardiovascular: Reports no additional cardiovascular complaints Respiratory: Respiratory: Reports no additional respiratory complaints Gastrointestinal: Gastrointestinal: Reports GI cramping, Reports dyspepsia, Reports diarrhea and Denies nausea Genitourinary: Genitourinary: Reports no additional female genitourinary complaints [facility] Past Medical History Medical History ADHD Anxiety Asthma Bipolar 1 disorder Borderline personality disorder Depression Family History Family History Other Depression Hypertension Social History Social History Smoking status: Current every day smoker Alcohol intake: current Gender identity (if verbalized by the patient): Female Comments At the time of my signature, I reviewed and agree with the nursing past medical, surgical, social, and family history. There is no relevant family history pertinent to the patient complaint. Exam Const: General: cooperative, no acute distress, alert and awake Orientation/consciousness: oriented to person, oriented to place and oriented to time HENMT: Head: normal to inspection Resp: Effort & Inspection: normal respiratory effort and able to speak in complete sentences Auscultation: clear to auscultation bilaterally, no crackles, no rales, no rhonchi and no wheezes Cardio: Palpation: normal PMI Rate: regular rate Rhythm: regular rhythm Heart sounds: S1 normal heart sound present and S2 normal heart sound present GI: Inspection: non-distended GI Palp: No abdominal tenderness, Yes Soft to palpation, No Tenderness to palpation present (GI), No Guarding due to palpation present (GI) and No Rigid due to palpation Auscultation: normal bowel sounds Neuro: General: oriented to person, oriented to place and oriented to time Cranial nerves: Yes CN's II-XII intact bilaterally Psych: Appearance: grossly normal Thought process: Normal thought process present Insight: Good insight present (Psych) Judgement: Good judgement present (Psych) Course Course Level of Care: Express Care Visit Vital Signs Vital signs: Vital Signs Temperature 97.7 F 01/25/24 12:29 Pulse Rate 108 H 01/25/24 12:29 Respiratory Rate 16 01/25/24 12:29 Blood Pressure 122/90 01/25/24 12:29 Pulse Oximetry 100 01/25/24 12:29 Oxygen Delivery Room Air 01/25/24 12:29 Temperature 97.7 F 01/25/24 12:29 Pulse Rate 108 H 01/25/24 12:29 Respiratory Rate 16 01/25/24 12:29 Blood Pressure 122/90 01/25/24 1
== END 2024-01-25 13:43 | disposition home or self-care (01) ==
PROVIDERS: Emergency Provider Nurse Practitioner Family; PCP Family Medicine
DX: K52.9 Noninfective gastroenteritis and colitis, unspecified (principal); F17.200 Nicotine dependence, unspecified, uncomplicated; J45.909 Unspecified asthma, uncomplicated
CPT/HCPCS: 99213; G0463

== ENCOUNTER 2024-04-06 08:48 | Emergency (ER) | payer SELFPAY ==
[2024-04-06 08:58] VITALS: BP 112/91; PULSE 77; RESP 16; TEMP 36.3; O2SAT 98
--- NOTE | 2024-04-06 09:05 | ED.DENTAL ---
HPI - Dental/Oral General Chief complaint: Dental/Oral Stated complaint: Dental Pain Time Seen by Provider: 04/06/24 09:05 Source: patient, RN notes reviewed and old records reviewed Mode of arrival: ambulatory Limitations: no limitations History of Present Illness HPI Narrative: 38-year-old female presents to the [facility] with complaints of dental pain to the left upper molars Started about a week ago. Says has increased pain. No swelling. No surrounding erythema. Onset (ago): week(s) (1) Related Data Home Medications Medication Instructions Recorded Confirmed levothyroxine 200 mcg tablet 200 mcg PO DAILY 10/17/22 04/06/24 albuterol sulfate 90 mcg/actuation 1 inh inhalation DIRECTED 10/31/23 04/06/24 aerosol inhaler Allergies Allergy/AdvReac Type Severity Reaction Status Date / Time latex AdvReac Mild Rash Verified 04/06/24 09:04 Review of Systems Review of Systems: All systems reviewed & are unremarkable except as noted in HPI and below Constitutional: Constitutional: Reports no additional constitutional complaints Eyes: Eyes: Reports no additional eye complaints ENT: Reports as per HPI and Reports dental pain Cardiovascular: Cardiovascular: Reports no additional cardiovascular complaints, Denies chest pain and Denies dyspnea Respiratory: Respiratory: Reports no additional respiratory complaints, Denies chest congestion, Denies cough and Denies dyspnea Musculoskeletal: Musculoskeletal: Reports no additional musculoskeletal complaints Integumentary/Breasts: Skin/Breast: Reports system reviewed and no additional complaints, except as docu Neurologic: Reports system reviewed and no additional complaints, except as documented Psychiatric: Psychiatric: Reports no additional psychiatric complaints Allergic/Immunologic: Allergic/Immunologic: Reports no additional allergic/immunologic complaints [facility] Past Medical History Medical History ADHD Anxiety Asthma Bipolar 1 disorder Borderline personality disorder Depression Family History Family History Other Depression Hypertension Social History Social History Smoking status: Current every day smoker Alcohol intake: current Gender identity (if verbalized by the patient): Female Comments At the time of my signature, I reviewed and agree with the nursing past medical, surgical, social, and family history. There is no relevant family history pertinent to the patient complaint. Exam Const: General: cooperative, healthy appearing, comfortable, no acute distress, well developed, alert and well nourished Nutritional Appearance: well nourished Orientation/consciousness: patient oriented x3 Limitations: no limitations HENMT: Head: normal to inspection Ears: hearing grossly normal bilaterally, external ears normal, TM's normal bilaterally, EAC's normal, mastoids normal and no periauricular adenopathy Face/Nose/Sinus: Normal external nose present, Normal nares present, Normal nasal mucous membranes and turbinates present, No nasal discharge present, normal facial exam and face symmetric Face and sinus: normal facial exam and face symmetric Mouth: Yes Normal oral and palatal mucosa present, Yes lip normal and Yes tongue normal Teeth and gingiva: caries, fair dentition and other (multiple chipped teeth) Eyes: General: appearance normal, both eyes and all related structures Alignment and Position: alignment normal Periorbital: periorbital findings normal Neck: Neck: normal visual inspection, full ROM, no lymphadenopathy and no meningeal signs Chest: Chest palpation & inspection: normal inspection of the chest Resp: Effort & Inspection: normal respiratory effort and able to speak in complete sentences Cardio: Rate: regular rate Skin: General skin exam: normal color and no ivette
== END 2024-04-06 09:30 | disposition home or self-care (01) ==
PROVIDERS: Emergency Provider Nurse Practitioner; PCP Family Medicine
DX: K02.9 Dental caries, unspecified (principal); S02.5XXA Fracture of tooth (traumatic), initial encounter for closed fracture; X58.XXXA Exposure to other specified factors, initial encounter; F17.200 Nicotine dependence, unspecified, uncomplicated; J45.909 Unspecified asthma, uncomplicated
CPT/HCPCS: 99213; G0463

== ENCOUNTER 2024-10-07 20:23 | Emergency (ER) | payer MEDICAID, SELFPAY ==
--- NOTE | ~2024-10-07 | XR_ITS ---
EXAMINATION: XR chest 2V Exam Date/Time: 10/07/2024 20:37 CDT HISTORY: chest pain Comparison: 06/29/2021. RESULT: Lines, tubes, and devices: None. Lungs and pleura: Clear. Cardiomediastinal silhouette: Stable. Other: No acute osseous or upper abdominal finding. IMPRESSION: No acute cardiopulmonary process. Reviewed, dictated and finalized at location K.
--- NOTE | 2024-10-07 20:26 | ECG_ITS ---
Test Date: 2024-10-07 20:30:15 Measurements Intervals [place] Rate: 89 P: 73 AL: 149 QRS: 76 QRSD: 84 T: 69 QT: 347 QTc: 423 Interpretive Statements SINUS RHYTHM INDETERMINATE AXIS INCOMPLETE RIGHT BUNDLE BRANCH BLOCK SEPTAL MYOCARDIAL INFARCTION , OF INDETERMINATE AGE [40+ ms Q WAVE IN V1/V2] No previous ECG available for comparison Electronically Signed On 10-08-2024 16:02:57 CDT by Mindy Camilo M.D.
[2024-10-07 20:27] VITALS: BP 122/80; PULSE 91; RESP 20; TEMP 36.3; O2SAT 100
--- OUTSIDE RECORDS SUMMARY | 2024-10-07 20:27 | XMS_ITS ---
Author Organization [facility] Address [address] [place] [address] Care Team Providers Care Silk Screen Printer Machine Name Role Phone Adriana Dinh Primary Care Provider [facility], [facility] Unavailable U Gabriela Gardner [phone] REASON FOR VISIT Labs-fasting Social History Sex Assigned At : Social History Observation Description Sex Assigned At Female Encounters Encounter Location Date Provider Diagnosis [place] [address] [place] [address] 10/07/2024 Gabriela Lomeli Screening for diabetes mellitus Z13.1 ; Establishing care with new doctor, encounter for Z71.89 ; Screening for thyroid disorder Z13.29 and Exposure to potential infection Z20.9 Assessments Encounter Date Diagnosis (ICD Code) Assessment Notes Treatment Notes Treatment Clinical Notes Section Notes 10/07/2024 Screening for diabetes mellitus (ICD-10 - Z13.1) 10/07/2024 Establishing care with new doctor, encounter for (ICD-10 - Z71.89) 10/07/2024 Screening for thyroid disorder (ICD-10 - Z13.29) 10/07/2024 Exposure to potential infection (ICD-10 - Z20.9) Plan Of Treatment Pending Test Test Name Order Date Hemoglobin A1c* 10/07/2024 Lipid Panel* 10/07/2024 TSH Rfx on Abnormal to Free T4 Rapid Plasma Reagin (RPR) Te st With Reflex to Quantitative RPR and Confirmatory Treponema pallidum Antibodies 10/07/2024 Next Appt Details Provider Name:Sandra house, 10/08/2024 10:20:00 AM, [address], [place], [address], Provider Name:Adriana sin, 10/09/2024 11:00:00 AM, [address] [facility] , [place], [address], Provider Name:Gabriela Roberson rt, 10/10/2024 08:20:00 AM, [address], [place], [address], Progress Notes * Pavithra ZAVALADOB:1985 (39 yo F)Acc No.[id number]:10/07/2024 UNLOCKED PROGRESS NOTE Patient: Pavithra MAGAÑA Provider: Alize Lomeli APRN :1985 A ge:39 Y S ex:Female Date:10/07/2024 Address:[address] [place] [address] 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 Labs-fasting. * Medical History: Objective: * Vitals: Assessment: * Assessment: 1. S creening for diabetes mellitus - Z13.1 2 . E stablishing care with new doctor, encounter for - Z71.89 3 . S creening for thyroid disorder - Z13.29? 4. E xposure to potential infection - Z20.9 Plan: * Treatment: 2. E stablishing care with new doctor, encounter for L AB: Lipid Panel* (Collection Date & Time - 10/07/2024) 3. S creening for thyroid disorder L AB: TSH Rfx on Abnormal to Free T4 (Collection Date & Time - 10/07/2024) 4. E xposure to potential infection L AB: Rapid Plasma Reagin (RPR) Test With Reflex to Quantitative RPR and Confirmatory Treponema pallidum Antibodies (Collection Date & Time - 10/07/2024) * * Electronic signature of Shannon Lomeli , [id number] on 10/07/2024 at 08:27 PM CDT Sign off status: Pending * Provider: Alize Lomeli APRN Date: 0 10/07/2024 Generated for Marilyn Cervantes on: 0 10/07/2024 08:27 PM CDT
--- OUTSIDE RECORDS SUMMARY | 2024-10-07 20:27 | XMS_ITS ---
Author Organization [facility] Address [address] [place] [address] Care Team Providers Care Post Office Markup Clerk Name Role Phone Adriana Dinh Primary Care Provider [phone] [address] [facility], [facility] Unavailable U navailable REASON FOR VISIT CRU est Medications Medication SIG (Take, Route, Frequency, Duration) Notes Start Date End Date Status Naltrexone HCl 50 MG 0.5 tablet Orally once 07/08/2024 Not-Taking Ergocalciferol 1.25 MG (30823 UT) 1 capsule Orally weekly Active Cyanocobalamin 2000 MCG 1 tablet Orally Once a day Active Levothyroxine Sodium 200 MCG 1 capsule in the morning on an empty stomach Orally Once a day Active Nicoderm CQ 14 MG/24HR 1 patch to skin Transdermal Once a day Active Macrobid 100 MG 1 capsule with food Orally every 12 hrs Active Thiamine HCl 100 MG 1 tablet Orally Once a day Active Metoprolol Succinate ER 25 MG 1 tablet Orally Once a day Active LORazepam 1 MG 1 tablet at bedtime as needed Orally Once a day Active Vraylar 1.5 MG 1 capsule Orally Once a day for 30 days Give samples if insurance won't cover Active buPROPion HCl ER (XL) 150 MG 1 tablet in the morning Orally Once a day for 7 days 06/02/2023 Active Vivitrol 380 MG as directed Intramuscular every 4 weeks 06/02/2023 Not-Taking Mirtazapine 15 MG 1 tablet at bedtime Orally Once a day for 7 days Active Mirtazapine 15 MG 1 tablet at bedtime Orally Once a day for 30 day(s) 10/07/2024 Active Social History Sex Assigned At : Social History Observation Description Sex Assigned At Female Encounters Encounter Location Date Provider Diagnosis On [facility] [address] [place] [address] 10/07/2024 Adriana Dinh Bipolar affective disorder, currently depressed, moderate F31.32 ; Anxiety disorder, unspecified F41.9 ; Methamphetamine use disorder, mild F15.10 ; Insomnia G47.00 and Alcohol use disorder F10.99 Assessments Encounter Date Diagnosis (ICD Code) Assessment Notes Treatment Notes Treatment Clinical Notes Section Notes 10/07/2024 Bipolar affective disorder, currently depressed, moderate (ICD-10 - F31.32) 10/07/2024 Anxiety disorder, unspecified (ICD-10 - F41.9) 10/07/2024 Methamphetamine use disorder, mild (ICD-10 - F15.10) 10/07/2024 Insomnia (ICD-10 - G47.00) 10/07/2024 Alcohol use disorder (ICD-10 - F10.99) Plan Of Treatment Medication Medication Name Sig Start Date Stop Date Notes Vraylar 1.5 MG 1 capsule Orally Onc e a day for 30 days Give samples if insurance won't cover Mirtazapine 15 MG 1 tablet at bedtime Orally Once a day for 30 day(s) 10/07/2024 Next Appt Details Follow Up: Monday, 024 at 11:00 am, Reason: New Psychiatric Evaluation Provider Name:Sandra house, 10/08/2024 10:20:00 AM, [address], [place], [address], Provider Name:Adriana sin, 10/09/2024 11:00:00 AM, [address], [place], [address], Provider Name:Gabriela sanchez, 10/10/2024 08:20:00 AM, [address], [place], [address], Progress Notes * Una ZAVALA:1985 (39 yo F)Acc No.[id number]:10/07/2024 UNLOCKED PROGRESS NOTE Patient: Pavithra MAGAÑA Provider: Ramo Dinh, MARA, COMPENSATION EXPERT, PMHNP-BC :1985 A ge:39 Y S ex:Female Date:10/07/2024 Address:[facility] [place], [id number] Check In:02:05 PM 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 CRU est. * Medical History: * Medications: T aking Metoprolol Succinate ER 25 MG Tablet Extended Release 24 Hour 1 tablet Orally Once a day , Taking Thiamine HCl 100 MG Tablet 1 tablet Orally Once a day , Taking Macrobid 100 MG Capsule 1 capsule with food Orally every 12 hrs , Taking LORazepam 1 MG Tablet 1 tablet at bedtime as needed Orally Once a day , Taking Cyanocobalamin 2000 MCG Tablet 1 tablet Orally Once a day , Taking Ergocalciferol 1.25 MG (97438 UT) Capsule 1 capsule Orally weekly , Taking Nicoderm CQ 14 MG/24HR Patch 24 Hour 1 patch to skin Transdermal Once a day , Taking Levothyroxine Sodium 200 MCG Capsule 1 capsule in the morning on an empty stomach Orally Once a day , Taking Mirtazapine 15 MG Tablet 1 tablet at bedtime Orally Once a day , Taking Vraylar 1.5 MG Capsule 1 capsule Orally Once a day , Taking buPROPion HCl ER (XL) 150 MG Tablet Extended Release 24 Hour 1 tablet in the morning Orally Once a day , Not-Taking Naltrexone HCl 50 MG Tablet 0.5 tablet Orally once , Not-Taking Vivitrol 380 MG Suspension Reconstituted as directed Intramuscular every 4 weeks Objective: * Vitals: Assessment: * Assessment: 1. B ipolar affective disorder, currently depressed, moderate - F31.32 (Primary) ?2. A nxiety disorder, unspecified - F41.9 3 . M ethamphetamine use disorder, mild - F15.10 4 . I nsomnia - G47.00 5 . A lcohol use disorder - F10.99 Plan: * Treatment: 2. I nsomnia Start Mirtazapine Tablet, 15 MG, 1 tablet at bedtime, Orally, Once a day, 30 day(s), 30. * Follow Up: , 10/10/2023 at 11:00 am (Reason: New Psychiatric Evaluation) * * Electronic signature of Katherine Anguiano , [id number] on 10/07/2024 at 08:26 PM CDT Sign off status: Pending * Provider: Ramo Dinh DNP, COMPENSATION EXPERT, PMHNP- Date: 10/07/2024 Generated for Printing/Faxing/eTransmitting on: 10/07/2024 08:26 PM CDT
--- OUTSIDE RECORDS SUMMARY | 2024-10-07 20:27 | XMS_ITS | Clinical Summary ---
Author Organization [facility] Address [address] [place] [address] Care Team Providers Care Hemmer Automatic Name Role Phone Rosy Rodney MD Primary Care Provider [phone] Source Comments [facility],non-owned Affiliates and Associated Physician Practices is amultiple site organization consisting of ambulatory clinics and hospital sitesin [place], [place], [place]. This disclosure is being madepursuant to the Care Everywhere program and may not contain all information available regarding this patient. Last updated 18.[facility] Active Problems Problem Noted Date Diagnosed Date Fracture of zygoma with delayed healing 10/16/19 16 Headache 10/16/2015 Closed fracture of maxillary bone 09/07/2015 Closed fracture of zygoma 09/07/2015 Social History Tobacco Use Types Packs/Day Years Used Date Smoking Tobacco: Former Cigarettes Q uit: 10/20/2015 Alcohol Use Standard Drinks/Week Comments No 0 (1 standard drink = 0.6 oz pur e alcohol) Sex and Gender Information Value Date Recorded Sex Assigned at Not on file Gender Identity Not on file Sexual Orientation Not on file Last Filed Vital Signs Vital Sign Reading Time Taken Comments Blood Pressure 109/74 11/16/2015 8:52 AM CDT Pulse 83 11/16/2015 8:52 AM CDT Temperature 36.2 C (97.1 F) 11/16/2015 8:52 AM CDT Respiratory Rate 16 11/05/2015 3:00 PM CDT Oxygen Saturation 99% 11/16/2015 8:52 AM CDT Inhaled Oxygen Concentration - - Weight 61.2 kg (135 lb) 11/16/2015 8:52 AM CDT Height 170.2 cm (5' 7 ) 11/16/2015 8:52 AM CDT Body Mass Index 21.14 11/16/2015 8:52 AM CDT Plan of Treatment Health Maintenance Due Date Last Done Comments LIPID TESTING 1985 MAMMOGRAM 1985 PAP SMEAR 1983 HIV SCREENING 1998 HEPATITIS C SCREENING 07/17/2001 DTAP/TDAP/TD VACCINES (1 - Tdap) 2002 HEPATITIS B VACCINE (1 of 3 - 19+ 3-dose series) 2002 COVID-19 VACCINE (1 - 2023-2 5 season) 2024 INFLUENZA VACCINE (#1) 2024 DEPRESSION SCREENING 07/17/2024 ZOSTER VACCINE (1 of 2) 2033 HIB VACCINE Aged Out No longer eligi ble based on patient's age to complete this topic HPV VACCINE Aged Out No longer eligi ble based on patient's age to complete this topic MENINGOCOCCAL (Group B) VACC INE SHARED DECISION-MAKING Aged Out No longer eligibl e based on patient's age to complete this topic MENINGOCOCCAL GROUPS A/C/Y/W VACCINE Aged Out No longer eligible b ased on patient's age to complete this topic PNEUMOCOCCAL VACCINE Aged Out No long er eligible based on patient's age to complete this topic Care Teams Hemmer Automatic Relationship Specialty Start Date End Date Rosy Rodney MD [address] [place] [address] PCP - General 08/21/15
--- OUTSIDE RECORDS SUMMARY | 2024-10-07 20:27 | XMS_ITS ---
Author Organization [facility] Address [address] [place] [address] Care Team Providers Care Educational Adviser Name Role Phone Adriana Dinh Primary Care Provider [facility], [facility] Unavailable U Gabriela Gardner [phone] REASON FOR VISIT Lab results Social History Sex Assigned At : Social History Observation Description Sex Assigned At Female Encounters Encounter Location Date Provider Diagnosis [facility] [address] [place] [address] 10/07/2024 Gabriela Lomeli Plan Of Treatment Next Appt Details Provider Name:Sandra house, 10/08/2024 10:20:00 AM, [address], [place], [address], Provider Name:Adriana sin, 10/09/2024 11:00:00 AM, [address], [place], [address], Provider Name:Gabriela sanchez, 10/10/2024 08:20:00 AM, [address], [place], [address], Progress Notes * Pavithra ZAVALADOB:1985 (39 yo F)Acc No.[id number]:10/07/2024 UNLOCKED PROGRESS NOTE Patient: Pavithra MAGAÑA :1985 A ge:39 Y S ex:Female Address:[address], [place], [address] * * Date:
--- OUTSIDE RECORDS SUMMARY | 2024-10-07 20:27 | XMS_ITS | Data Portability ---
Author Organization [facility] [employer], Main Office Address [address] [place] [address] Assessment No assessment recorded. Plan of Treatment Reminders Order Date Submit Date Provider Last Modified By Organization Details Last Modified Time Details Appointments None record ed. Lab None record ed. Referral None record ed. Procedures None record ed. Surgeries None record ed. Imaging None record ed. Medication Orders None record ed. Patient TargetsNo targets recorded. Patient InstructionsNo instructions recorded. Reason for Referral None Reported. Results Created Date Observation Date Name Description Value Unit Range Abnormal Flag Note LastModifiedBy Organization Detail LastModifiedTime 12/18/19 21 12/17/2020 TSH, serum or plasm a thyroid-stim ulating hormone 70.400 uIU/m L 0.465- 4.680 high Not Available [facility] (Lab) [address] [place], [address], 12/17/2020 21:27:23 08/04/19 23 08/04/2022 TSH thyroid-stim ulating hormone 165.00 0 uIU/m L 0.465- 4.680 high Not Available [facility] (Lab) [address] [place], [address], 08/04/2022 20:35:15 08/04/19 23 08/04/2022 VITAM IN D 25-HY DROXY [id number] 19.5 NG/mL 30-100 low Vitam in D Statu s: Defic ient: <20 ng/mL Insuf ficie nt: 20-29 ng/mL Suffi cient : 30-10 0 ng/mL Not Available [facility] (Lab) [address] [place], [address], 08/04/2022 19:40:19 08/04/19 23 08/04/2022 COMPR EHENS CELINA METAB OLIC PANEL carbon dioxide 30 mmol/ L 22-30 Not Available [facility] (Lab) [address] [facility] [place], [address], 08/04/2022 19:27:28 08/04/19 23 08/04/2022 COMPR EHENS CELINA METAB OLIC PANEL sodium 140 mmol/ L 137-14 5 Not Available [facility] (Lab) [address] [place], [address], 08/04/2022 19:27:28 08/04/19 23 08/04/2022 COMPR EHENS CELINA METAB OLIC PANEL potassium 3.7 mmol/ L 3.5-5. 1 Not Available [facility] (Lab) [address] [place], [address], 08/04/2022 19:27:28 08/04/19 23 08/04/2022 COMPR EHENS CELINA METAB OLIC PANEL chloride 102 mmol/ L 98-107 Not Available [facility] (Lab) [address] [place], [address], 08/04/2022 19:27:28 08/04/19 23 08/04/2022 COMPR EHENS CELINA METAB OLIC PANEL anion gap 11.7 mmol/ L 14-22 low Not Available [facility] (Lab) [address] [place], [address], 08/04/2022 19:27:28 08/04/19 23 08/04/2022 COMPR EHENS CELINA METAB OLIC PANEL glucose 81 mg/dL 70-99 Not Available [facility] (Lab) [address] [place], [address], 08/04/2022 19:27:28 08/04/19 23 08/04/2022 COMPR EHENS CELINA METAB OLIC PANEL BUN 11 mg/dL 8-19 Not Available [facility] (Lab) [address] [place], [address], 08/04/2022 19:27:28 08/04/19 23 08/04/2022 COMPR EHENS CELINA METAB OLIC PANEL creatinine 0.75 mg/dL 0.66-1 .25 Not Available [facility] (Lab) [address] [place], [address], 08/04/2022 19:27:28 08/04/19 23 08/04/2022 COMPR EHENS CELINA METAB OLIC PANEL GFR >60 Refer ence Range : [place] ge GFR Healt hy Adult : >60 mL/mi n/1.7 3 m2 Chron ic Kidne y Disea se: 15-60 mL/mi n/1.7 3 m2 Kidne y Failu re: <15/m L/min /1.73 m2 www.n iddk. nih.g ov The MDRD study equat ion has not been valid ated in child peña <18 years of age; pregn ant women ; the elder ly >85 years of age; or in some racia l or ethni c subgr oups, such as Hispa nics. Outsi de the valid ated jovanny eters , estim ated GFR is less accur ate, requi ring clini annita judgm ent on a case- by-ca se basis . Clini annita inter preta tion for other races and ages must be made by the clini luanne. The MDRD study equat ion has not been valid ated for the evalu ation of serum creat inine relat ed to nutri marlyn l statu s or medic ation usage . For perso ns <18 years of age, a pedia tric GFR calcu lator is avail able on the NKF websi te: https ://blane gardner.rhonda clemens/pr clotilde correaal s/kdo qi/gf r_cal culat or Not Available [facility] (Lab) [address] [place], [address], 08/04/2022 19:27:28 08/04/19 23 08/04/2022 COMPR EHENS CELINA METAB OLIC PANEL alkaline phosphatase 62 U/L 38-126 Not Available [facility] (Lab) [address] [place], [address], 08/04/2022 19:27:28 08/04/19 23 08/04/2022 COMPR EHENS CELINA METAB OLIC PANEL alanine aminotransfe rase 21 U/L 0-35 Not Available [facility] (Lab) [address] [place], [address], 08/04/2022 19:27:28 08/04/19 23 08/04/2022 COMPR EHENS CELINA METAB OLIC PANEL aspartate aminotransfe rase 31 U/L 15-37 Not Available [facility] (Lab) [address] [place], [address], 08/04/2022 19:27:28 08/04/19 23 08/04/2022 COMPR EHENS CELINA METAB OLIC PANEL bilirubin, total 0.30 mg/dL 0.20-1 .30 Not Available [facility] (Lab) [address] [place], [address], 08/04/2022 19:27:28 08/04/19 23 08/04/2022 COMPR EHENS CELINA METAB OLIC PANEL calcium 9.6 mg/dL 8.4-10 .2 Not Available [facility] (Lab) [address] [place], [address], 08/04/2022 19:27:28 08/04/19 23 08/04/2022 COMPR EHENS CELINA METAB OLIC PANEL total protein 7.6 g/dL 6.3-8. 2 Not Available [facility] (Lab) [address] [place], [address], 08/04/2022 19:27:28 08/04/19 23 08/04/2022 COMPR EHENS CELINA METAB OLIC PANEL albumin 4.4 g/dL 3.4-5. 0 Not Available [facility] (Lab) [address] [place], [address], 08/04/2022 19:27:28 08/04/19 23 08/04/2022 COMPR EHENS CELINA METAB OLIC PANEL globulin 3.2 g/dL 2.6-4. 2 Not Available [facility] (Lab) [address] [place], [address], 08/04/2022 19:27:28 08/04/19 23 08/04/2022 COMPR EHENS CELINA METAB OLIC PANEL A/G ratio 1.4 ratio 1.0-2. 0 Not Available [facility] (Lab) [address] [place], [address], 08/04/2022 19:27:28 08/04/19 23 08/04/2022 CBC W/O DIFFE RENTI AL mean red cell hemoglobin 30.7 pg 27.0-3 3.0 Not Available [facility] (Lab) [address] [facility] [place], [address], 08/04/2022 19:04:30 08/04/19 23 08/04/2022 CBC W/O DIFFE RENTI AL white blood cells 7.8 x10'3 /uL 4.2-10 .8 Not Available [facility] (Lab) [address] [place], [address], 08/04/2022 19:04:30 08/04/19 23 08/04/2022 CBC W/O DIFFE RENTI AL red blood cells 3.75 x10'6 /uL 3.80-5 .20 low Not Available [facility] (Lab) [address] [place], [address], 08/04/2022 19:04:30 08/04/19 23 08/04/2022 CBC W/O DIFFE RENTI AL hemoglobin 11.5 g/dL 12.0-1 5.6 low Not Available [facility] (Lab) [address] [place], [address], 08/04/2022 19:04:30 08/04/19 23 08/04/2022 CBC W/O DIFFE RENTI AL hematocrit 37.0 % 35.7-4 5.7 Not Available [facility] (Lab) [address] [place], [address], 08/04/2022 19:04:30 08/04/19 23 08/04/2022 CBC W/O DIFFE RENTI AL mean red cell volume 98.7 fL 82.0-9 9.0 Not Available [facility] (Lab) [address] [place], [address], 08/04/2022 19:04:30 08/04/19 23 08/04/2022 CBC W/O DIFFE RENTI AL mean RBC HGB concentratio n 31.1 g/dL 31.0-3 6.0 Not Available [facility] (Lab) [address] [place], [address], 08/04/2022 19:04:30 08/04/19 23 08/04/2022 CBC W/O DIFFE RENTI AL red cell distribution width 14.0 % 11.8-1 5.5 Not Available [facility] (Lab) [address] [place], [address], 08/04/2022 19:04:30 08/04/19 23 08/04/2022 CBC W/O DIFFE RENTI AL platelets 319 x10'3 /uL 150-40 0 Not Available [facility] (Lab) [address] [place], [address], 08/04/2022 19:04:30 08/04/19 23 08/04/2022 CBC W/O DIFFE RENTI AL mean platelet volume 9.7 fL 9.0-12 .4 Not Available [facility] (Lab) [address] [place], [address], 08/04/2022 19:04:30 09/05/19 23 09/05/2022 TSH thyroid-stim ulating hormone 158.00 0 uIU/m L 0.465- 4.680 high Not Available [facility] (Lab) [address] [place], [address], 09/05/2022 21:24:50 06/29/20 21 06/29/2021 XR, chest No observ ation record ed. [id number] [place] [address], [address], 09/14/2022 00:58:12 06/29/20 21 06/29/2021 XR, cervi annita spine No observ ation record ed. [id number] [place] [address], [address], 09/14/2022 00:58:12 Result Notes None recorded. Problems Name Problem SNOMED Code Status Onset Date Resolution Date Notes Provider Name and Address Organization Details Recorded Time Bipolar disorder 06451539 Active Not Available [facility] 3 00:51:20 Otalgia 19079606 Active Not Available [facility] 3 00:51:20 Anxiety state 583104815 Active Not Available [facility] 3 00:51:20 Female genital organ symptoms 101020620 Active Not Available [facility] 3 00:51:20 Borderline personality disorder Active Not Available [facility] 3 00:51:20 Gastroesophag eal reflux disease 217080065 Active Not Available [facility] 3 00:51:20 Acute low back pain 436630484 Active Not Available [facility] 3 00:51:20 Low back pain 157599606 Active Not Available [facility] 3 00:51:20 Vitamin D deficiency 66987255 Active 2020 Not Available [facility] 3 00:51:20 Bipolar I disorder 946040067 Active Not Available [facility] 3 00:51:20 Hypothyroidis m 22396759 Active Not Available [facility] 3 00:51:20 Hip pain 69733334 Active Not Available [facility] 3 00:51:21 Chronic bronchitis 05510200 Active 2018 Not Available [facility] 3 00:51:21 Urinary tract infectious disease 73570575 Active Not Available [facility] 3 00:51:21 Thigh pain 87541417 Active Not Available [facility] 3 00:51:21 Tobacco dependence syndrome 21685417 Active Not Available [facility] 3 00:51:21 Paresthesia 20655640 Active Not Available [facility] 3 00:51:21 Problem Notes None recorded. Procedures Surgical History None recorded. Imaging Results Imaging Date Name Status LastModified by Organiz ation Details LastModified Time 06/29/2021 XR, chest completed [id number] [place] [address] [place] [address], [address], 09/14/2022 00:58:12 06/29/2021 XR, cervical spine completed [id number] [address], [address], 09/14/2022 00:58:12 Procedure Notes None recorded. Medical Equipment None Reported. Medications Name Sig Start Date Stop Date Status Note LastModified by Organization Details LastModified Time m-dryllidoc ainem-dryl 111 TAKE 10 ML BY MOUTH EVERY 4 HOURS NEEDED FOR PAIN active Not Available Not Available No t Available cyclobenzap rine 10 mg tablet TAKE 1 TABLET BY MOUTH 3 TIMES A DAY active Not Available Not Available No t Available amoxicillin 500 mg capsule 08/16 completed Not Available Not Available Not Available levothyroxi ne 175 mcg tablet TAKE 1 TABLET BY MOUTH EVERY DAY 09/06 completed Not Available Not Available Not Available clonidine HCl 0.1 mg tablet active Not Available Not Available Not Available gabapentin 600 mg tablet 08/16 completed Not Available Not Available Not Available quetiapine 300 mg tablet Take 1 tablet every day by oral route at bedtime. 08/16 completed Not Available Not Available Not Available clindamycin HCl 300 mg capsule TAKE 1 CAPSULE BY MOUTH EVERY 8 HOURS FOR 7 DAYS active Not Available Not Available No t Available loperamide 2 mg capsule TK 2 CS PO NOW THEN 1 C AFTER EACH LOOSE BOWEL MOVEMENT. active Not Available Not Available No t Available trazodone 50 mg tablet TK 1 T PO QHS 09/14 completed Not Available Not Available Not Available azithromyci n 250 mg tablet TAKE 2 TABLETS (500 MG) BY ORAL ROUTE ONCE DAILY FOR 1 DAY THEN 1 TABLET (250 MG) BY ORAL ROUTE ONCE DAILY FOR 4 DAYS active Not Available Not Available No t Available ofloxacin 0.3 % eye drops active Not Available Not Available Not Available fluconazole 150 mg tablet TAKE 1 TABLET BY MOUTH DAILY active Not Available Not Available No t Available hydrocodone 5 mg-acetamin ophen 325 mg tablet TK 1 T PO Q 6 H PRF PAIN 08/16 completed Not Available Not Available Not Available prazosin 1 mg capsule 1 po qhs 11/17 completed Not Available Not Available Not Available carbamazepi ne ER 100 mg tablet,exte nded release,12 hr 08/16 completed Not Available Not Available Not Available metronidazo le 0.75 % (37.5 mg/5 gram) vaginal gel Insert 1 applicato rful every day by vaginal route for 5 days. active Not Available Not Available No t Available clonazepam 0.5 mg tablet 08/16 completed Not Available Not Available Not Available clonazepam 1 mg tablet 08/16 completed Not Available Not Available Not Available metronidazo le 500 mg tablet TAKE 1 TABLET BY MOUTH EVERY 12 HOURS FOR 7 DAYS active Not Available Not Available No t Available oxcarbazepi ne 300 mg tablet TAKE 1 TABLET BY MOUTH TWICE DAILY 09/05 completed Not Available Not Available Not Available acetaminoph en 300 mg-codeine 30 mg tablet Take 1 tablet every 6 hours by oral route as needed. 06/27 completed Not Available Not Available Not Available ciprofloxac in 250 mg tablet 10/01 completed Not Available Not Available Not Available hydrocodone 10 mg-acetamin ophen 325 mg tablet TAKE 1 TABLET BY MOUTH EVERY 6 HOURS NEEDED FOR PAIN WITH A MAXIMUM OF 6 TABLETS PER 24 HOURS 06/27 completed Not Available Not Available Not Available tramadol 50 mg tablet active Not Available Not Available No t Available ketorolac 30 mg/mL (1 mL) injection solution Inject 1 mL every day by intramusc ular route for 1 day. 02/26 completed Not Available Not Available Not Available bupropion HCl SR 100 mg tablet,12 hr sustained-r elease TAKE 2 TABLETS BY MOUTH EVERY MORNING AND TAKE 1 TABLET BY MOUTH IN THE AFTERNOON 09/23 completed Not Available Not Available Not Available amoxicillin 500 mg tablet TAKE 1 TABLET BY MOUTH EVERY 12 HOURS FOR 10 DAYS NEEDED FOR INFECTION 09/05 completed Not Available Not Available Not Available levothyroxi ne 25 mcg tablet TK 1 T PO QD 08/16 completed Not Available Not Available Not Available lamotrigine 25 mg tablet TAKE 2 TABLETS BY MOUTH TWICE DAILY 09/23 completed Not Available Not Available Not Available ketorolac 10 mg tablet TAKE 1 TABLET BY MOUTH EVERY 6 HOURS FOR 5 DAYS 06/27 completed Not Available Not Available Not Available levothyroxi ne 75 mcg tablet Take 1 tablet every day by oral route. 08/16 completed Not Available Not Available Not Available ketorolac 0.5 % eye drops INSTILL 1 DROP INTO LEFT EYE EVERY 6 HOURS NEEDED FOR PAIN active Not Available Not Available No t Available meloxicam 7.5 mg tablet Take 1 tablet every day by oral route at dinner for 30 days. active Not Available Not Available No t Available levothyroxi ne 100 mcg tablet Take 1 tablet every day by oral route for 30 days. 11/19 completed Not Available Not Available Not Available oxycodone-a cetaminophe n 5 mg-325 mg tablet Take 1 tablet every 6 hours by oral route. active Not Available Not Available No t Available levothyroxi ne 88 mcg tablet po Q AM active Not Available Not Available Not Available propranolol 10 mg tablet TK 1 T PO TID PRN 04/02 completed Not Available Not Available Not Available clonidine HCl 0.2 mg tablet active Not Available Not Available Not Available famotidine 20 mg tablet 06/27 completed Not Available Not Available Not Available oxycodone-a cetaminophe n 10 mg-325 mg tablet TK 1 T PO Q 6 H 08/16 completed Not Available Not Available Not Available Kenalog 10 mg/mL suspension for injection In office injection administe red by the provider 09/14 completed [facility]: [phone]- [phone] Not Available Not Available Not Available meclizine 25 mg tablet Take 1 tablet 3 times a day by oral route as needed. active Not Available Not Available No t Available phenazopyri dine 100 mg tablet TAKE 1 TABLET BY MOUTH THREE TIMES DAILY NEEDED FOR PAIN active Not Available Not Available No t Available levothyroxi ne 50 mcg tablet TK 1 T PO QD 08/16 completed Not Available Not Available Not Available cephalexin 500 mg capsule TAKE 1 CAPSULE BY MOUTH EVERY 6 HOURS FOR 7 DAYS active Not Available Not Available No t Available mirtazapine 30 mg tablet 1 po qhs active Not Available Not Available Not Available buspirone 30 mg tablet TAKE 1 TABLET BY MOUTH TWICE DAILY 09/05 completed Not Available Not Available Not Available triamcinolo ne acetonide 0.1 % topical ointment 08/16 completed Not Available Not Available Not Available bupropion HCl 75 mg tablet 08/16 completed Not Available Not Available Not Available guanfacine 1 mg tablet 08/16 completed Not Available Not Available Not Available omeprazole 20 mg capsule,del ayed release TK 1 C PO QD 08/16 completed Not Available Not Available Not Available diclofenac sodium 75 mg tablet,cary yed release Take 1 tablet twice a day by oral route. active Not Available Not Available No t Available dextroamphe tamine-amph etamine ER 10 mg 24hr capsule,ext end release 11/17 completed Not Available Not Available Not Available levothyroxi ne 200 mcg tablet TAKE 1 TABLET BY MOUTH EVERY DAY active Not Available Not Available No t Available diclofenac sodium 50 mg tablet,cary yed release active Not Available Not Available Not Available mirtazapine 15 mg tablet TAKE 1 TABLET BY MOUTH EVERY DAY AT BEDTIME active Not Available Not Available No t Available ergocalcife rol (vitamin D2) 1,250 mcg (50,000 unit) capsule Take 1 capsule every week by oral route. active Not Available Not Available No t Available levofloxaci n 750 mg tablet TAKE 1 TABLET BY MOUTH DAILY FOR 7 DAYS active Not Available Not Available No t Available zolpidem 10 mg tablet 08/16 completed Not Available Not Available Not Available methylpredn isolone 4 mg tablets in a dose pack 06/27 completed Not Available Not Available Not Available albuterol sulfate HFA 90 mcg/actuati on aerosol inhaler INHALE 2 PUFFS BY MOUTH EVERY 4 HOURS NEEDED active Not Available Not Available No t Available ondansetron 4 mg disintegrat ing tablet DISSOLVE ONE T ON THE TONGUE Q 6 H active Not Available Not Available No t Available cefdinir 300 mg capsule TAKE ONE CAPSULE BY MOUTH TWICE DAILY active Not Available Not Available No t Available fluticasone propionate 50 mcg/actuati on nasal spray,suspe nsion 2 sprays IEN daily active Not Available Not Available No t Available fludrocorti sone 0.1 mg tablet TK 07/18 T PO ONCE A DAY active Not Available Not Available No t Available doxycycline hyclate 100 mg tablet TAKE 1 TABLET BY MOUTH TWICE DAILY FOR 14 DAYS active Not Available Not Available No t Available lamotrigine 100 mg tablet TAKE 1 TABLET BY MOUTH TWICE DAILY 09/05 completed Not Available Not Available Not Available naproxen 500 mg tablet 08/16 completed Not Available Not Available Not Available levothyroxi ne 112 mcg tablet TK 1 T PO QPM FOR 30 DAYS 05/07 completed Not Available Not Available Not Available amoxicillin 875 mg-potassiu m clavulanate 125 mg tablet TK 1 T PO Q 12 H active Not Available Not Available No t Available buspirone 15 mg tablet bid 11/17 completed Not Available Not Available Not Available dextroamphe tamine-amph etamine ER 15 mg 24hr capsule,ext end release TAKE 1 CAPSULE BY MOUTH DAILY 09/05 completed Not Available Not Available Not Available escitalopra m 20 mg tablet 08/16 completed Not Available Not Available Not Available Abilify 10 mg tablet Take 1 tablet every day by oral route at bedtime. 2012 active Not Available Not Available Not Avai lable bupropion HCl XL 150 mg 24 hr tablet, extended release TAKE 1 TABLET BY MOUTH EVERY DAY 07/16 completed Not Available Not Available Not Available metoprolol tartrate 25 mg tablet TAKE 1 TABLET BY MOUTH THREE TIMES DAILY active Not Available Not Available No t Available mirtazapine 7.5 mg tablet TAKE 1 TABLET BY MOUTH EVERY NIGHT AT BEDTIME 09/14 completed Not Available Not Available Not Available nitrofurant oin monohydrate /macrocryst als 100 mg capsule Take 1 capsule every 12 hours by oral route for 7 days. 10/13 completed Not Available Not Available Not Available levothyroxi ne 88mg 1 q day 2012 active Not Available Not Available Not Avai lable Lamictal 200mg 1 q day 2012 active Not Available Not Available Not Avai lable lidocaine (PF) 10 mg/mL (1 %) injection solution In office injection administe red by the provider 09/14 completed [facility]: [phone] [phone]- [phone] Not Available Not Available Not Available Vivitrol 380 mg intramuscul ar suspension, extended release active Not Available Not Available Not Available quetiapine 50 mg tablet 1 po qhs active Not Available Not Available Not Available quetiapine ER 50 mg tablet,exte nded release 24 hr TAKE 1 TABLET BY MOUTH EVERY DAY IN THE EVENING active Not Available Not Available No t Available quetiapine ER 150 mg tablet,exte nded release 24 hr TAKE 1 TABLET BY MOUTH EVERY EVENING. NO LATER THAN 7 PM 09/05 completed Not Available Not Available Not Available Claritin Liqui-Gel 10 mg capsule Take 1 capsule every day by oral route in the morning for 90 days. 02/19 completed Not Available Not Available Not Available M-Dryl 12.5 mg/5 mL oral liquid active Not Available Not Available Not Available Vitals Date Recorded Body mass index (BMI) Body height Oxygen saturation Oxygen saturation in Arterial blood by Pulse oximetry Heart rate Body temperature Body weight Systolic blood pressure Diastolic blood pressure Provider Name and Address Organization Details Last Updated DateTime 1 20.4 kg/m2 168.91 cm 98 % 98 % 75 /min 97.7 [degF] 94408.8 2 g 116 mm[Hg] 60 mm[Hg] Not Available [facility] 3 00:49:39 Date Recorded Body mass index (BMI) Body height Oxygen saturation Oxygen saturation in Arterial blood by Pulse oximetry Heart rate Body temperature Body weight Systolic blood pressure Diastolic blood pressure Provider Name and Address Organization Details Last Updated DateTime 1 20.2 kg/m2 168.91 cm 99 % 99 % 95 /min 97.8 [degF] 01167.2 3 g 124 mm[Hg] 80 mm[Hg] Not Available [facility] 3 00:49:39 Date Recorded Body mass index (BMI) Body height Oxygen saturation Oxygen saturation in Arterial blood by Pulse oximetry Heart rate Body temperature Body weight Systolic blood pressure Diastolic blood pressure Provider Name and Address Organization Details Last Updated DateTime 3 22.8 kg/m2 167.64 cm 98 % 98 % 112 /min 97.4 [degF] 14316.5 2 g 118 mm[Hg] 78 mm[Hg] Not Available [facility] 3 00:49:39 Date Recorded Oxygen saturation Oxygen saturation in Arterial blood by Pulse oximetry Heart rate Body temperature Body weight Systolic blood pressure Diastolic blood pressure Provider Name and Address Organization Details Last Updated DateTime 3 99 % 99 % 81 /min 97 [degF] 36765.6 7 g 110 mm[Hg] 67 mm[Hg] Not Available [facility] 3 00:49:39 Social History Question Answer Notes LastModified by Organizat ion Details LastModified Time Tobacco Smoking Status Former Smoker Not Available [facility] 09/14/2022 00:44:11 What Is Your Level Of Alcohol Consumption? None [id number] Information not available 09/14/2022 What Is Your Level Of Caffeine Consumption? Moderate [id number] Information not available 09/14/2022 How Much Tobacco Do You Chew? None [id number] Information not available 09/14/2022 In The 14 Days Before Symptom Onset, Have You Had Close Contact With A Laboratory-confir med COVID-19 While That Case Was Ill? No [id number] Information not available 09/14/2022 In The 14 Days Before Symptom Onset, Have You Had Close Contact With A Person Who Is Under Investigation For COVID-19 While That Person Was Ill? No [id number] Information not available 09/14/2022 What Type Of Diet Are You Following? REGULAR [id number] Information not available 09/14/2022 Which Illicit Or Recreational Drugs Have You Used? None [id number] Information not available 09/14/2022 Do You Or Have You Ever Used E-cigarettes Or Vape? 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 09/14/2020 [id number] Information not available 09/14/2022 Are You Passively Exposed To Smoke? No [id number] Information not available 09/14/2022 Do You Or Have You Ever Used Smokeless Tobacco? Never Used Smokeless Tobacco [id number] Information not available 09/14/2022 How Much Tobacco Do You Smoke? 1 PPW [id number] Information not available 09/14/2022 Sex: Unknown Functional Status Question Answer Note LastModified by Organizat ion Details LastModified Time What is your exercise level? Moderate [id number] Information not available 09/14/2022 Mental Status None recorded. Family History Relationship Description Onset Age of this Age Resolved Age Notes LastModified by Organization Details LastModified Time Mother Heart disease [id number] Not available 09/14/2022 00:44:39 Mother Family history of breast cancer gene BRCA mutation [id number] Not available 09/14/2022 00:44:39 Medical History No medical history recorded. Gynecological HistoryNo gynecological history recorded. Obstetrics History GPAL:G 0 P 0 0 0 0 Immunizations Vaccine Type Date Status Note Provider Nam e and Address Organization Details Recorded Time Influenza, split virus, quadrivalent, PF 9 completed Not Available [facility] 09/14/2022 00:57:43 pneumococcal polysaccharide PPV23 5 completed Not Available [facility] 09/14/2022 00:57:43 Influenza, split virus, quadrivalent, PF 5 completed Not Available [facility] 09/14/2022 00:57:44 Influenza, split virus, trivalent, preservative 3 completed Not Available [facility] 09/14/2022 00:57:44 Past Encounters Encounter ID Performer Location Encounter Start Date Encounter Closed Date Diagnosis/Indication Diagnosis SNOMED-CT Code Diagnosis ICD10 Code Diagnosis Note [id number] [facility] Primary Care [facility] [address] [facility] [address] [place] [address] 09/14/2020 00:00:00 09/14/2020 08:20:29 [id number] [facility] [place] [facility] [address] [facility] [address] [place] [address] 10/13/2020 00:00:00 10/13/2020 14:01:36 [id number] [facility] [place] [address] [place] [address] 11/17/2020 00:00:00 11/17/2020 12:34:47 [id number] [facility] [place] [address] [place] [address] 12/17/2020 00:00:00 12/17/2020 14:45:23 [id number] [facility] [place] [address] [place] [address] 08/04/2022 00:00:00 08/04/2022 17:47:21 [id number] [facility] [place] [address] [place] [address] 09/05/2022 00:00:00 09/05/2022 11:18:05 [id number] [facility] [place] [address] [place] [address] 01/27/2023 12:03:16 01/27/2023 12:05:31 Health Concerns Section Related Observation LastModified by Organization Detai ls LastModified Time None Recorded Concern Status LastModified by Organization Details LastModified Time None Recorded Advance Directives Directive None Recorded Payers Encounter Date Sequence Insurance Name Policy Number Policy Smith Covered Member ID Smith Member ID Guarantor Name 01/27/2023 1 [facility] ON OR AFTER 01/14/21 (MEDICAID REPLACEMENT - HMO) Pavithra Zavala [id number] Pavithra Zavala OBGyn Episode No OBEpisode recorded.
--- OUTSIDE RECORDS SUMMARY | 2024-10-07 20:27 | XMS_ITS | CONTINUITY OF CARE DOCUMENT ---
Author Name fabian peralta Address Unknown Organization [facility] Address [address] [place] [address] [address] [place] [address] Phone [phone] Care Team Providers Care Truss Assembler Name Role Phone Hari FERNANDES, Alis Unavailable [phone] KATHY FERNANDES, KAILA Sotomayor Unavailable KATHY FERNANDES, KAILA Sotomayor Unavailable PROBLEMS Condition Status Date Provider Notes Palpitations active Gray Foster Cardiology examination active Alis moore MD Tobacco abuse active Alis Noriega MD Sinus tachycardia active Alis Noriega MD Shortness of breath active Alis Tristan Hypothyroidism active Alis Noriega MD Chest pain-type to be determined active Kwaku Elliott MD Hypotension active Alis Noriega MD Bipolar disorder active Alis Noriega MD PTSD active Alis Noriega MD ENCOUNTERS Date Type Provider Location Encounter Diag nosis - In-person encounter Office Visit Alis Noriega MD [facility] Bipolar disorderPTSD - In-person encounter Office Visit Alis Noriega MD [facility] Bipolar disorder - In-person encounter Office Visit Alis Noriega MD [facility] - In-person encounter Office Visit Alis Noriega MD [facility] - In-person encounter Office Visit Alis Noriega MD [facility] Hypotension - In-person encounter Office Visit Alis Noriega MD [facility] - In-person encounter Office Visit Raheem Elliott MD [facility] Chest pain-type to be determined - In-person encounter Office Visit Alis Noriega MD [facility] - In-person encounter Office Visit Alis Noriega MD [facility] Cardiology examinationTobacco abuseSinus tachycardiaShortness of breathHypothyroidism VITAL SIGNS Date Observation Value Provider Body Mass Index (Ratio) 20.03 kg/m2 Kal Burkett oxygen saturation, oximetry 99 % Jocelyn Chandler pulse rate 85 /min Jocelynpamela Robles andrea blood pressure, cuff size regular Cy dayami Chandler blood pressure, diastolic 70 mm[Hg] Rufus stock Chandler blood pressure, systolic 98 mm[Hg] Lucia santiago Chandler respiratory rate E&M 16 /min Jocelyn Chandler weight E&M 126 [lb_av] Jocelyn Robles l height E&M 66.5 [in_i] Jocelynpamlea Robles andrea Body Mass Index (Ratio) 20.03 kg/m2 Kal Burkett blood pressure, diastolic 79 mm[Hg] Rufus stock Chandler blood pressure, systolic 112 mm[Hg] Lucia pamela Ramesh blood pressure, cuff size regular Cy dayami Chandler pulse rate 61 /min Jocelyn Robles andrea oxygen saturation, oximetry 96 % Jocelyn Chandler respiratory rate E&M 16 /min Jocelyn Ramesh weight E&M 126 [lb_av] Jocelyn Robles l height E&M 66.5 [in_i] Jocelyn Robles l Body Mass Index (Ratio) 20.67 kg/m2 Jeanmarie Noriega MD pulse rate 127 /min Jayda Block oxygen saturation, oximetry 98 % Jayda Block blood pressure, diastolic 62 mm[Hg] Br ittany Block blood pressure, systolic 98 mm[Hg] Niru ttany Block weight E&M 130 [lb_av] Jayda Block respiratory rate E&M 16 /min Laneytan Block height E&M 66.5 [in_i] Jayda Block Body Mass Index (Ratio) 19.55 kg/m2 Jeanmarie Noriega MD blood pressure, diastolic 60 mm[Hg] James Darby blood pressure, systolic 90 mm[Hg] Rekha aamir Darby oxygen saturation, oximetry 98 % Anne Darby pulse rate 123 /min Anne Vail weight E&M 123 [lb_av] Annelucero Vail height E&M 66.5 [in_i] Annelucero Vail Body Mass Index (Ratio) 19.39 kg/m2 Jeanmarie Noriega MD blood pressure, diastolic 60 mm[Hg] Kr isty Brandon blood pressure, systolic 78 mm[Hg] Kri sty Jodi pulse rate 82 /min Trinity Jodi oxygen saturation, oximetry 99 % Trinity Brandon weight E&M 122 [lb_av] Trinity Jodi respiratory rate E&M 18 /min Trinity Jodi blood pressure, cuff size regular Kr isty Jodi height E&M 66.5 [in_i] Trinity Jodi Body Mass Index (Ratio) 17.96 kg/m2 Jeanmarie Noriega MD blood pressure, cuff size regular Cr daniela Hook blood pressure, diastolic 70 mm[Hg] Cr daniela Hook blood pressure, systolic 100 mm[Hg] Cry stal Monster oxygen saturation, oximetry 98 % Lesa Hook respiratory rate E&M 17 /min Lesa Hook pulse rate 70 /min Lesa house weight E&M 113 [lb_av] Lesa house height E&M 66.5 [in_i] Lesa house JNC systolic blood pressure goal 118 m m/[Hg] Geeta Mango Body Mass Index (Ratio) 18.76 kg/m2 Quincy Elliott MD blood pressure, cuff size regular Cr daniela Hook blood pressure, diastolic 70 mm[Hg] Cr daniela Hook blood pressure, systolic 110 mm[Hg] Cry staandrea Hook oxygen saturation, oximetry 99 % Lesa Hook respiratory rate E&M 17 /min Lesa Hook pulse rate 85 /min Lesa house weight E&M 118 [lb_av] Lesa house height E&M 66.5 [in_i] Lesa house Body Mass Index (Ratio) 17.96 kg/m2 Jeanmarie Noriega MD blood pressure, cuff size regular Cy dayami Chandler blood pressure, diastolic 70 mm[Hg] Cy dayami Chandler blood pressure, systolic 110 mm[Hg] Lucia Chandler oxygen saturation, oximetry 97 % Jocelyn Chandler respiratory rate E&M 16 /min Jocelynpamela Chandler pulse rate 109 /min Jocelyn Abdelrahmanbel l weight E&M 113 [lb_av] Jocelyn Abdelrahmanbel l height E&M 66.5 [in_i] Jocelyn Campbel l Body Mass Index (Ratio) 18.44 kg/m2 Jeanmarie Noriega MD blood pressure, resting No Rod titnegin Marly blood pressure, diastolic 74 mm[Hg] Kurt betancourt Marly blood pressure, systolic 110 mm[Hg] Hilda stitushar Marly pulse rate 103 /min [facility], [facility] 98 % [facility] height E&M 66.5 [in_i] [facility] respiratory rate E&M 18 /min Hildastit y Marly weight E&M 116 [lb_av] [facility] ALLERGIES No Known Drug Allergies HISTORY OF MEDICATION USE Medication Status Instructions Dates Provider Indications Com ments Trileptal 300 mg tablet active 1 tablet twice a day Alis Noriega MD buspirone 15 mg tablet active Take 1 tablet twice a day Jocelyn Chandler Adderall XR 10 mg capsule,extended release 24hr active Take 1 tablet once a day Jocelyn Chandler Lamictal 150 mg tablet active 0.5 tablet twice a day Harriett Gaston FLORINEF 0.1MG TAB active 1 tablet by mouth once a day Alis Noriega MD metoprolol tartrate 25 mg tablet completed Take 1 tablet by mouth three times a day - Harriett Marilin BUPROPION HCL ER (XL) 150 MG ORAL TABLET EXTENDED RELEASE 24 HOUR completed TK 1 T PO QD - Lesa Hook #30, 30 days supply, Prescribed by KAILA CHAVEZ, Filled 10/25/2018 levothyroxine 112 mcg tablet active Take 1 tablet by mouth every night Anabel Luke #30, 30 days supply, Prescribed by FAYE WARREN, Filled 11/14/2018 PROPRANOLOL HCL 10 MG ORAL TABLET completed TK 1 T PO TID PRN - Alis Noriega MD #90, 30 days supply, Prescribed by FAYE WARREN, Filled 11/19/2018 SOCIAL HISTORY Date Observation Value Provider social history E&M Marital Statu s: Single 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 P atient has been counseled to quit. 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 P atient has been counseled to quit. 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 P atient has been counseled to quit. 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 P atient has been counseled to quit. 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 P atient has been counseled to quit. 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 P atient has been counseled to quit. 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 Raheem Elliott MD Surgical History of - Tonsillectomy Surgical History of - Tonsillectomy Raheem Elliott MD cigarette use yes Lesa Kaplan ms smoking status Current every day smoker Sumit ana Hook social history E&M S moking History: P atient currently smokes every day. P atient has been counseled to quit. Alis Noriega MD social history reviewed E&M revi ewed - no changes required Alis Noriega MD Underweight yes Alis Noriega MD smoking/tobacco cess ation, patient education and counseling yes Jocelyn Chandler number of years as a smoker 15 a Jocelyn Chandler smoking history, tot al pack/day 1/2 Jocelyn Chandler cigarette use yes Jocelyn de la o smoking status Current every day smoker C renetta Chandler Underweight yes Alis Noriega MD number of grandchildren Alis Noriega MD social history E&M S moking History: P xavier currently smokes every day. P xavier has been counseled to quit. Alis Noriega MD social history reviewed E&M revi ewed - no changes required Alis Noriega MD smoking/tobacco cess ation, patient education and counseling yes Alsi Noriega MD number of years as a smoker 15 a [facility] Marly smoking history, tot al pack/day 1/2 [facility] Marly [facility] Current every day smoker C ronninegin Luke FUNCTIONAL STATUS Date Observation Value Provider periodic limb movement index present (1) Geeta Cobian FAMILY HISTORY Family Member Condition First Degree Blood Relative No Known Fam khris History INSURANCE PROVIDERS Payer name Policy type / Coverage type [facility] ID [place] MEDICAID (2) Medicaid [id number] [facility] [employer] 002 [id number] ADVANCE DIRECTIVES Name Date DISCUSSED - NO DECISION MADE TREATMENT PLAN Date Name Performer Cardiology Follow up :STRONGLY ENCOURAGED TO STOP SMOKING; SMOKING CESSATION TECHNIQUES DISCUSSED. Ross Burkett Cardiology Follow up :On replace ment therapy. Ross Burkett Cardiology Follow up :Heart rate controlled today. Continues on Metoprolol Tartrate 25mg TID. Cannot increase the dose due to hypotension. Ross Burkett Cardiology Follow up :Continues on Florinef. Ross Burkett Cardiology Follow up :On multiple medications. Follows psychiatry. Ross Burkett Cardiology Follow up :Improved with better anxiety control. Her echo today showed normal LV size and systolic function with no wall motion abnormalities. She has been reassured. Ross Burkett Cardiology follow up :STRONGLY ENCOURAGED TO STOP SMOKING; SMOKING CESSATION TECHNIQUES DISCUSSED. Ross Burkett Cardiology follow up :Continues on florinef. Ross Burkett Cardiology follow up :Symptoms likely related to anxiety. She is planned to follow up with psychiatry next week. Ross Burkett Cardiology follow up :On replace ment therapy. Ross Burkett Cardiology follow up :EKG today with sinus rhythm, rate 96. She continues on Metoprolol. Will not increase beta meenu due to hypotension. Ross Burkett Cardiology follow up :Persistent chest pressure associated with increased anxiety and stress. Her stress test in 2019 showed normal perfusion. Symptoms likely due to anxiety. Will check echo to rule out wall motion abnormality. Ross Burkett Cardiology:On replacement therap y. Alis Noriega MD Cardiology:On metoprolol, which she continues to take. Alis Noriega MD Cardiology:Intermitt ent chest tightness when under stress. Alis Noriega MD Cardiology:The Patient was reenc ouraged to stop smoking. Alis Noriega MD Cardiology:Made wors e by stress. Continues on metoprolol. Her pulse today is 127, but she states that she has not yet taken her medications today. Alis Noriega MD Cardiology:Continues on florinef . Alis Noriega MD Cardiology:On replac ement therapy. Her ACTH and aldosterone were normal. Follows endocrinology. Alis Noriega MD Cardiology:STRONGLY ENCOURAGED TO STOP SMOKING; SMOKING CESSATION TECHNIQUES DISCUSSED. Alis Noriega MD Cardiology:Resolved on Metoprolo l. Alis Noriega MD Cardiology:Continues on Florinef . Alis Noriega MD Cardiology:Persist. 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 Her stress test was normal. Likely musculoskeletal. Adivsed Tylenol and local application of biofreeze. Alis Noriega MD Cardiology:STRONGLY ENCOURAGED TO STOP SMOKING; SMOKING CESSATION TECHNIQUES DISCUSSED. Alis Noriega MD Cardiology:On replac ement therapy. Her ACTH and aldosterone were normal. Follows endocrinology. Alis Noriega MD Cardiology:Likely re lated to beta meenu. Advised patient to increase her fluid intake. Will start Florinef 0.1mg daily. Alis Noriega MD Cardiology:Resolved on Metoprolol Tartrate 25mg TID which she continues. Her EKG today shows normal sinus rhythm with a rate of 74. Her stress test was normal and the patient was reassured. Alis Noriega MD Cardiology :Continue s on replacment therapy. Follows endocrinology. Alis Noriega MD Cardiology :Persists . Will increase Metoprolol to 25mg TID. Alis Noriega MD Cardiology :Palpitat ions persist. Will increase Metopolol to 25mg TID to hopefully impove her symptoms. Alis Noriega MD Cardiology :Chest pa in persits. The patient was tachycardic prior to starting her stress test and walked for less than 3 minutes. As her symptoms persist, she will undergo a regadenosen stress test. Alis Noriega MD Cardiology Raheem Elliott MD Cardiology Raheem Elliott MD Cardiology Raheem Elliott MD Cardiology Raheem Elliott MD Cardiology Raheem Elliott MD Cardiology Raheem Elliott MD Cardiology followup :Continues on Levothyroxine. Follows endocrinology. Alis Noriega MD Cardiology followup :STRONGLY ENCOURAGED TO STOP SMOKING; SMOKING CESSATION TECHNIQUES DISCUSSED. Alis Noriega MD Cardiology followup :Persists. PFTs showed minimal obstruction and diffusion defects. Recently started on ProAir which she continues. Alis Noriega MD Cardiology followup :Persistent sinus tach. Propanolol ineffective with heart rate today in the 130s. Will discontinue Propanolol and start her on Metoprolol Tartrate 25mg BID. A telesentry monitor will be arranged. Alis Noriega MD Cardiology:STRONGLY ENCOURAGED TO STOP SMOKING; SMOKING CESSATION TECHNIQUES DISCUSSED. Alis Noriega MD Cardiology:Continues on Levothyroxine. She reports her thyroid panel done this week was normal. Follows endocrinology. Alis Noriega MD Cardiology:Clear cassie gs on auscultation. Normal chest xray. Will arrange PFTs. Alis Noriega MD Cardiology:Persisten t sinus tachycardia. Unclear etiology. Patient was prescribed Propanolol 10mg TID but had not started. Advised to take as prescribed. Will check an echocardiogram. Alis Noriega MD Date Name Complete Echo T3, FREE T-4, FREE TSH, 3RD GENERATION Stress Regadenoson Stress Routine Mobile Cardiac Tele DLCO - 60200 FRC - 81099 FVC - 67534 Complete Echo HISTORY OF PROCEDURES Procedure Date Procedure Name Provider Procedure Notes S tatus EKG Alis Noriega MD complet ed EKG Alis Noriega MD complet ed EKG Alis Noriega MD complet ed EKG Alis Noriega MD complet ed EKG Alis Noriega MD complet ed Regadenoson, 4 units Alis Noriega MD completed Cardiolite, 2 units Alis Noriega MD completed SPECT Images Alis Noriega MD compl eted Stress EKG Alis Noriega MD complet ed EKG Alis Noriega MD complet ed Stress EKG Alis Noriega MD complet ed EKG Raheem Elliott MD complete d Event Monitor Alis Noriega MD comp leted EKG Alis Noriega MD complet ed FVC / MVV with bronchodilator - 34461 Alis Noriega MD completed BLOOD COUNT HEMOGLOBIN Alis Noriega MD completed FRC - 07136 Alis Noriega MD comple cecelia SpO2 w/o 6min walk/titration Alis Noriega MD completed DLCO - 73141 Alis Noriega MD compl eted EKG Alis Noriega MD complet ed
--- OUTSIDE RECORDS SUMMARY | 2024-10-07 20:28 | XMS_ITS | Referral Summary ---
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 coli UTI; Hypothyroidism, unspecified type Discharge Disposition: Discharge to other rehab with plan readmit 09/24/2024 Documentation [facility] Case Management [address] [place] [id number] Desiree Horton from Last 3 Months Allergies No known active allergies Medications cyanocobalamin (Vitamin B-12) 2,000 mcg tabletIndicatio ns:vitamin B12 deficiency Take 1 tablet (2,000 mcg total) by mouth daily 60 tablet 5 12/01/19 25 Active ergocalciferol (VITAMIN D) 50,000 unit capsuleIndicati ons:Vitamin D Deficiency Take 1 capsule (50,000 Units total) by mouth once a week for 7 doses 7 capsule 5 11/17/19 25 Active levothyroxine (SYNTHROID) 100 mcg tablet Take 1 tablet (100 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) 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 60 tablet 5 12/01/19 25 Active nicotine (NICODERM CQ) 14 mgIndications:S moking Cessation Place 1 patch on the skin nightly 30 patch 1 5 11/01/19 25 Active thiamine (VITAMIN B1) 100 mg tablet Take 1 tablet (100 mg total) by mouth daily 7 tablet 5 10/03/19 26 Active LORazepam (ATIVAN) 1 mg tabletIndicatio ns:Alcohol Withdrawal Assessment Scale score Take 1 tablet (1 mg total) by mouth nightly for 5 days 5 tablet 5 Active LORazepam (ATIVAN) 1 mg tablet Take 1 tablet (1 mg total) by mouth daily as needed for anxiety (during the day) for up to 5 days 5 tablet 5 Active nitrofurantoin monohydrate (MACROBID) 100 mg capsule Take 1 capsule (100 mg total) by mouth 2 (two) times a day 10 capsule 4 09/26/19 25 Discontinu ed(Therapy completed) LORazepam (ATIVAN) 1 mg tablet Take 1 tablet (1 mg total) by mouth nightly for 5 days 5 tablet 5 10/02/19 25 Discontinu ed(Stop Taking at Discharge) LORazepam (ATIVAN) 0.5 mg tabletIndicatio ns:Insomnia,gra dual withdrawal from lorazepam Take 1 tablet (0.5 mg total) by mouth nightly Two tablets nightly for 5 days, then one tablet nightly for 3 days, then stop. 13 tablet 5 10/02/19 25 Discontinu ed(Stop Taking at Discharge) nitrofurantoin monohydrate (MACROBID) 100 mg capsuleIndicati ons:Urinary Tract/Genitouri nary Infection Take 1 capsule (100 mg total) by mouth 2 (two) times a day for 8 doses 8 capsule 5 10/06/19 25 Active Problems Problem Noted Date Diagnosed Date Amphetamine abuse 10/01/2024 Anxiety 10/01/2024 E. coli UTI 10/01/2024 Hypothyroidism 10/01/2024 Alcohol withdrawal syndrome without complication 09/25/2024 Immunizations Immunization Administration Dates Next Due Tdap 12/29/2021 Social History Tobacco Use Types Packs/Day Years Used Date Smoking Tobacco: Every Day Cigarettes Alcohol Use Standard Drinks/Week Comments Not Currently 0 (1 standard drink = 0.6 oz pur e alcohol) [facility] Utilities Answer Date Recorded In the past 12 months has th e electric, gas, oil, or water company threatened to shut off services in your home? No 09/26/2024 Social Connection and Isolation Panel [NHANES] A nswer Date Recorded In a typical week, how many times do you talk on the phone with family, friends, or neighbors? Three times a week 09/26/2024 How often do you get togethe r with friends or relatives? Three times a week 09/26/2024 How often do you attend chur ch or scientologist services? Never 09/26/2024 Do you belong to any clubs o r organizations such as jain groups, unions, fraternal or athletic groups, or school groups? No 09/26/2024 How often do you attend meet ings of the clubs or organizations you belong to? Never 09/26/2024 Are you , , di vorced, , never , or living with a partner? Never 09/26/2024 Overall Financial Resource Strain (CARDIA) Answe r Date Recorded How hard is it for you to pa y for the very basics like food, housing, medical care, and heating? Somewhat hard 09/26/2024 Hunger Vital Sign Answer Date Recorded Within the past 12 months, y ou worried that your food would run out before you got the money to buy more. Never true 09/27/19 25 Within the past 12 months, t he food you bought just didn't last and you didn't have money to get more. Never true 09/26/2024 PRAPARE - Transportation Answer Date Re corded In the past 12 months, has l ack of transportation kept you from medical appointments or from getting medications? No 09/14 In the past 12 months, has l ack of transportation kept you from meetings, work, or from getting things needed for daily living? No 09/26/2024 Housing Stability Vital Sign Answer Lanre e Recorded In the last 12 months, was t here a time when you were not able to pay the mortgage or rent on time? No 09/26/2024 In the past 12 months, how m any times have you moved where you were living? 0 09/26/2024 At any time in the past 12 m [facility], were you homeless or living in a retirement (including now)? No 09/26/2024 Personal Safety Answer Date Recorded Have you ever been in or are you currently in a harmful physical or emotional relationship or is someone making you feel afraid or unsafe? 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 Gender Identity Not on file Sexual Orientation Not on file Last Filed Vital Signs Vital Sign Reading Time Taken Comments Blood Pressure 106/69 10/01/2024 11:36 AM CDT Pulse 112 10/01/2024 11:36 AM CDT Temperature 36.7 C (98.1 F) 10/01/2024 11:36 AM CDT Respiratory Rate 18 10/01/2024 11:36 AM CDT Oxygen Saturation 96% 10/01/2024 11:36 AM CDT Inhaled Oxygen Concentration - - Weight 62.1 kg (137 lb) 09/25/2024 7:53 PM CDT Height 167.6 cm (5' 6 ) 09/25/2024 7:53 PM CDT Body Mass Index 22.11 09/25/2024 7:53 PM CDT Plan of Treatment Not on file Procedures Procedure Name Priority Date/Time Associated Diagnosis Comments EGFR Routine 09/30/2024 6:23 AM CDT PHOSPHORUS Routine 09/30/2024 6:23 AM CDT MAGNESIUM Routine 09/30/2024 6:23 AM CDT COMPREHENSIVE METABOLIC PANEL Routine 09/30/2024 6:23 AM CDT IRON PROFILE W/ IBC Timed 09/29/2024 8 :43 AM CDT EGFR Timed 09/29/2024 8:43 AM CDT DIFFERENTIAL AUTO Timed 09/29/2024 8:4 3 AM CDT PHOSPHORUS Timed 09/29/2024 8:43 AM CDT MAGNESIUM Timed 09/29/2024 8:43 AM CDT COMPREHENSIVE METABOLIC PANEL Timed 09/29/2024 8:43 AM CDT CBC WITH AUTO DIFFERENTIAL Timed 09/29/2024 8:43 AM CDT EGFR Routine 09/27/2024 7:19 AM CDT VITAMIN D 25 HYDROXY Routine 09/27/2024 7:19 AM CDT VITAMIN B12 Routine 09/27/2024 7:19 AM CDT BASIC METABOLIC PANEL Routine 09/27/2024 7:19 AM CDT EGFR Routine 09/26/2024 4:40 AM CDT DIFFERENTIAL AUTO Routine 09/26/2024 4:4 0 AM CDT HEMOGLOBIN A1C Routine 09/26/2024 4:40 AM CDT CBC WITH AUTO DIFFERENTIAL Routine 09/26/2024 4:40 AM CDT MAGNESIUM Routine 09/26/2024 4:40 AM CDT COMPREHENSIVE METABOLIC PANEL Routine 09/26/2024 4:40 AM CDT PRO B-TYPE NATRIURETIC PEPTIDE Add-On 09/25/2024 7:21 PM CDT POCT HCG, URINE Routine 09/25/2024 3:22 PM CDT URINALYSIS, MICROSCOPIC ONLY STAT 09/25/2024 3:17 PM CDT DRUGS OF ABUSE SCREEN, URINE WITHOUT CONFIRMATION STAT 09/25/2024 3:17 PM CDT URINE CULTURE STAT 09/25/2024 3:17 PM CDT URINALYSIS AND REFLEX TO MICROSCOPIC AND CULTURE STAT 09/25/2024 3:17 PM CDT TSH STAT 09/25/2024 2:52 PM CDT EGFR STAT 09/25/2024 2:52 PM CDT DIFFERENTIAL AUTO STAT 09/25/2024 2:5 2 PM CDT ETHANOL STAT 09/25/2024 2:52 PM CDT COMPREHENSIVE METABOLIC PANEL STAT 09/25/2024 2:52 PM CDT CBC WITH AUTO DIFFERENTIAL STAT 09/25/2024 2:52 PM CDT from Last 3 Months Results * eGFR (09/30/2024 6:23 AM CDT) eGFR 78 >=60 mL/min/1. 73 m2 Comment: Interpretive Data Reference Interval Normal >/= 90 mL/min/1.73m2 Mildly decreased* 60 - 89 mL/min/1.73m2 Mildly to moderately decreased 45 - 59 mL/min/1.73m2 Moderately to severely decreased 30 - 44 mL/min/1.73m2 Severely decreased 15 - 29 mL/min/1.73m2 Kidney Failure < 15 mL/min/1.73m2 *Relative to young adult level Estimated glomerular filtration rate is determined by the 2020 CKD-EPI equation recommended by the National Kidney Foundation (A Unifying Approach to GFR Estimation: Recommendations of the NKF-ASK Task Force on Reassessing the Inclusion of Race in Diagnosing Kidney Disease, JASN 2020). The CKD-EPI equation should not be used for patients with unstable renal function and has not been validated in children and those over 70. Current interpretive data was last reviewed 2021. Blood 09/30/2024 6:23 AM CDT 09/30/2024 6:38 AM CDT Sharif Smith MD LAB BLOOD ORDERABLES Final R esult Performing Organization Address City/[facility] Co de Phone Number [address] [address] * Phosphorus (09/30/2024 6:23 AM CDT) Pathologist [facility] Phosphorus, pl 2.7 2.3 - 4.5 mg/dL Blood 09/30/2024 6:23 AM CDT 09/30/2024 6:38 AM CDT Sharif Smith MD LAB BLOOD ORDERABLES [facility] Performing Organization Address [facility] Co de Phone Number [address] [place] [address] * Magnesium (09/30/2024 6:23 AM CDT) [facility] Magnesium 2.2 1.4 - 2.5 mg/dL Blood 09/30/2024 6:23 AM CDT 09/30/2024 6:38 AM CDT Sharif Smith MD LAB BLOOD ORDERABLES Final R [facility] Performing Organization Address City/[facility] Co de Phone Number [address] [address] * Comprehensive metabolic panel (09/30/2024 6:23 AM CDT) [facility] Sodium 136 135 - 145 mmol/L Potassium, pl 3.9 3.3 - 4.9 mmol/L [facility] Comment:Hemolyzed; Potassium value may be falsely elevated by as much as 1.0 mmol/L. Suggest redraw and reanalysis. Chloride 103 97 - 110 mmol/L [facility] CO2 24 22 - 32 mmol/L [facility] Anion gap 9 2 - 15 mmol/L [facility] BUN 12 6 - 25 mg/dL [facility] Creatinine 0.94 0.60 - 1.10 mg/dL [facility] Glucose 75 70 - 199 mg/dL [facility] Comment: Interpretive Data Fasting glucose >/= 126 mg/dl is diagnostic for diabetes. Fasting is defined as no caloric intake for at least 8 hours. Fasting glucose between 100 mg/dl to 125 mg/dl is diagnostic of prediabetes. In a patient with classic symptoms of hyperglycemia or hyperglycemic crisis, a random glucose >/= 200 mg/dl is diagnostic for diabetes. In the absence of unequivocal hyperglycemia, results should be confirmed by repeat testing. The classification and Diagnosis of Diabetes Diabetes Care 2021; 46: S19-S40. Current interpretive data was last revised 2022. Calcium 9.1 8.5 - 10.3 mg/dL [facility] Bilirubin, total 0.4 0.1 - 1.2 mg/dL [facility] Protein, pl 7.1 6.5 - 8.5 g/dL [facility] Albumin 4.1 3.5 - 5.0 g/dL [facility] Alk phos 62 40 - 130 Units/L [facility] ALT 18 7 - 45 Units/L [facility] AST See Comment 10 - 45 [facility] Comment:Credited; Hemolyzed Specimen Blood 09/30/2024 6:23 AM CDT 09/30/2024 6:38 AM CDT us Sharif Smith MD LAB BLOOD ORDERABLES Final R esult [facility] [address] [facility] [place] [address] * eGFR (09/29/2024 8:43 AM CDT) eGFR 89 >=60 mL/min/1. 73 m2 Comment: Interpretive Data Reference Interval Normal >/= 90 mL/min/1.73m2 Mildly decreased* 60 - 89 mL/min/1.73m2 Mildly to moderately decreased 45 - 59 mL/min/1.73m2 Moderately to severely decreased 30 - 44 mL/min/1.73m2 Severely decreased 15 - 29 mL/min/1.73m2 Kidney Failure < 15 mL/min/1.73m2 *Relative to young adult level Estimated glomerular filtration rate is determined by the 2020 CKD-EPI equation recommended by the National Kidney Foundation (A Unifying Approach to GFR Estimation: Recommendations of the NKF-ASK Task Force on Reassessing the Inclusion of Race in Diagnosing Kidney Disease, JASN 2020). The CKD-EPI equation should not be used for patients with unstable renal function and has not been validated in children and those over 70. Current interpretive data was last reviewed 2021. Blood 09/29/2024 8:43 AM CDT 09/29/2024 9:03 AM CDT us Sharif Smith MD LAB BLOOD ORDERABLES Final R esult [facility] [address] [facility] [place] [address] * Differential, auto (09/29/2024 8:43 AM CDT) Neutrophil abs 5.0 1.5 - 6.5 K/cumm Imm gran abs 0.0 0.0 - 0.1 K/cumm [facility] Lymphocyte abs 2.6 0.8 - 3.3 K/cumm [facility] Monocyte abs 0.8 0.2 - 0.8 K/cumm [facility] Eosinophil abs 0.2 0.0 - 0.5 K/cumm [facility] Basophil abs 0.1 0.0 - 0.1 K/cumm [facility] Neutrophil pct 57.7 % [facility] Comment: Interpretive Data Percent cell count reference ranges are not reported, since discordance with absolute values may lead to misinterpretation of CBC data. Current Interpretive Data was last revised on 2017. Imm gran pct 0.2 % [facility] Comment: Interpretive Data Percent cell count reference ranges are not reported, since discordance with absolute values may lead to misinterpretation of CBC data. Current Interpretive Data was last revised on 2017. Lymphocyte pct 29.8 % [facility] Comment: Interpretive Data Percent cell count reference ranges are not reported, since discordance with absolute values may lead to misinterpretation of CBC data. Current Interpretive Data was last revised on 2017. Monocyte pct 9.6 % [facility] Comment: Interpretive Data Percent cell count reference ranges are not reported, since discordance with absolute values may lead to misinterpretation of CBC data. Current Interpretive Data was last revised on 2017. Eosinophil pct 2.0 % [facility] Comment: Interpretive Data Percent cell count reference ranges are not reported, since discordance with absolute values may lead to misinterpretation of CBC data. Current Interpretive Data was last revised on 2017. Basophil pct 0.7 % [facility] Comment: Interpretive Data Percent cell count reference ranges are not reported, since discordance with absolute values may lead to misinterpretation of CBC data. Current Interpretive Data was last revised on 2017. Blood 09/29/2024 8:43 AM CDT 09/29/2024 9:03 AM CDT Sharif Smith MD LAB BLOOD ORDERABLES Final R [facility] Performing Organization Address City/[facility] Co de Phone Number [address] [place] [address] * Iron profile w/ IBC (09/29/2024 8:43 AM CDT) Pathologist [facility] Iron 76 35 - 145 mcg/dL TIBC 322 250 - 400 mcg/dL [facility] Transferrin saturation 24 20 - 50 % [facility] Blood 09/29/2024 8:43 AM CDT 09/29/2024 9:03 AM CDT Sharif Smith MD LAB BLOOD ORDERABLES Final R esult Performing Organization Address City/[facility]/ZIP Co de Phone Number [address] [place] [address] * (ABNORMAL) CBC with auto differential (09/29/2024 8:43 AM CDT) Pathologist [facility] WBC 8.7 3.8 - 9.9 K/cumm Hgb 12.4 11.9 - 15.5 g/dL [facility] Hct 38.6 35.6 - 45.5 % [facility] Plt 247 150 - 400 K/cumm [facility] MPV 9.4 9.1 - 12.3 fL [facility] RBC 3.86(L) 3.90 - 5.20 M/cumm [facility] MCV 100.0(H) 81.3 - 96.4 fL [facility] MCH 32.1 27.1 - 33.3 pg [facility] MCHC 32.1(L) 32.3 - 35.7 g/dL [facility] RDW CV 13.2 11.1 - 14.9 % [facility] RDW SD 49.0(H) 35.7 - 48.1 fL [facility] NRBC abs 0.00 0.00 - 0.01 K/cumm [facility] Blood 09/29/2024 8:43 AM CDT 09/29/2024 9:03 AM CDT Sharif Smith MD LAB BLOOD ORDERABLES Final R esult Performing Organization Address City/[facility]/ZIP Co de Phone Number [address] [place] [address] * Phosphorus (09/29/2024 8:43 AM CDT) Pathologist [facility] Phosphorus, pl 3.1 2.3 - 4.5 mg/dL Blood 09/29/2024 8:43 AM CDT 09/29/2024 9:03 AM CDT Sharif Smith MD LAB BLOOD ORDERABLES Final R esult Performing Organization Address City/State/[facility] Co de Phone Number [address] [place] [address] * Magnesium (09/29/2024 8:43 AM CDT) Pathologist [facility] Magnesium 1.9 1.4 - 2.5 mg/dL Blood 09/29/2024 8:43 AM CDT 09/29/2024 9:03 AM CDT Sharif Smith MD LAB BLOOD ORDERABLES Final R esult Performing Organization Address [facility]/ZIP Co de Phone Number RADHA [address] [facility] Department [place] [address] * (ABNORMAL) Comprehensive metabolic panel (09/29/2024 8:43 AM CDT) Sodium 134(L) 135 - 145 mmol/L Potassium, pl 3.6 3.3 - 4.9 mmol/L [facility] Chloride 101 97 - 110 mmol/L [facility] CO2 26 22 - 32 mmol/L [facility] Anion gap 7 2 - 15 mmol/L [facility] BUN 11 6 - 25 mg/dL [facility] Creatinine 0.84 0.60 - 1.10 mg/dL [facility] Glucose 73 70 - 199 mg/dL [facility] Comment: Interpretive Data Fasting glucose >/= 126 mg/dl is diagnostic for diabetes. Fasting is defined as no caloric intake for at least 8 hours. Fasting glucose between 100 mg/dl to 125 mg/dl is diagnostic of prediabetes. In a patient with classic symptoms of hyperglycemia or hyperglycemic crisis, a random glucose >/= 200 mg/dl is diagnostic for diabetes. In the absence of unequivocal hyperglycemia, results should be confirmed by repeat testing. The classification and Diagnosis of Diabetes Diabetes Care 2021; 46: S19-S40. Current interpretive data was last revised 2022. Calcium 9.0 8.5 - 10.3 mg/dL [facility] Bilirubin, total 0.3 0.1 - 1.2 mg/dL [facility] Protein, pl 6.3(L) 6.5 - 8.5 g/dL [facility] Albumin 3.7 3.5 - 5.0 g/dL [facility] Alk phos 55 40 - 130 Units/L [facility] ALT 14 7 - 45 Units/L [facility] AST 30 10 - 45 Units/L [facility] Blood 09/29/2024 8:43 AM CDT 09/29/2024 9:03 AM CDT Sharif Smith MD LAB BLOOD ORDERABLES Final R esult Performing Organization Address [facility]/ZIP Co de Phone Number [address] [place] [address] * eGFR (09/27/2024 7:19 AM CDT) eGFR 85 >=60 mL/min/1. 73 m2 Comment: Interpretive Data Reference Interval Normal >/= 90 mL/min/1.73m2 Mildly decreased* 60 - 89 mL/min/1.73m2 Mildly to moderately decreased 45 - 59 mL/min/1.73m2 Moderately to severely decreased 30 - 44 mL/min/1.73m2 Severely decreased 15 - 29 mL/min/1.73m2 Kidney Failure < 15 mL/min/1.73m2 *Relative to young adult level Estimated glomerular filtration rate is determined by the 2020 CKD-EPI equation recommended by the National Kidney Foundation (A Unifying Approach to GFR Estimation: Recommendations of the NKF-ASK Task Force on Reassessing the Inclusion of Race in Diagnosing Kidney Disease, JASN 2020). The CKD-EPI equation should not be used for patients with unstable renal function and has not been validated in children and those over 70. Current interpretive data was last reviewed 2021. Blood 09/27/2024 7:19 AM CDT 09/27/2024 8:06 AM CDT Sharif Smith MD LAB BLOOD ORDERABLES Final R esult Performing Organization Address [facility] Co de Phone Number RADHA[address] [place] [address] * (ABNORMAL) Vitamin D 25 hydroxy (09/27/2024 7:19 AM CDT) Pathologist [facility] Vitamin D 25-OH 10.0(L) 30.0 - 80.0 ng/mL Blood 09/27/2024 7:19 AM CDT 09/27/2024 8:04 AM CDT Sharif Smith MD LAB BLOOD ORDERABLES Final R esult Performing Organization Address City/[facility] Co de Phone Number RADHANER [facility] [address] [place] [address] * Vitamin B12 (09/27/2024 7:19 AM CDT) Pathologist [facility] Vitamin B12 361 230 - 1,250 pg/mL Blood 09/27/2024 7:19 AM CDT 09/27/2024 8:04 AM CDT Sharif Smith MD LAB BLOOD ORDERABLES Final R esult Performing Organization Address [facility] de Phone Number [facility] [address] [place] [address] * Basic metabolic panel (09/27/2024 7:19 AM CDT) [facility] Sodium 135 135 - 145 mmol/L Potassium, pl 3.7 3.3 - 4.9 mmol/L [facility] Chloride 101 97 - 110 mmol/L [facility] CO2 27 22 - 32 mmol/L [facility] Anion gap 7 2 - 15 mmol/L [facility] BUN 8 6 - 25 mg/dL [facility] Creatinine 0.88 0.60 - 1.10 mg/dL [facility] Glucose 77 70 - 199 mg/dL [facility] Comment: Interpretive Data Fasting glucose >/= 126 mg/dl is diagnostic for diabetes. Fasting is defined as no caloric intake for at least 8 hours. Fasting glucose between 100 mg/dl to 125 mg/dl is diagnostic of prediabetes. In a patient with classic symptoms of hyperglycemia or hyperglycemic crisis, a random glucose >/= 200 mg/dl is diagnostic for diabetes. In the absence of unequivocal hyperglycemia, results should be confirmed by repeat testing. The classification and Diagnosis of Diabetes Diabetes Care 202; 46: S19-S40. Current interpretive data was last revised 2022. Calcium 8.9 8.5 - 10.3 mg/dL [facility] Blood 09/27/2024 7:19 AM CDT 09/27/2024 8:04 AM CDT Sharif Smith MD LAB BLOOD ORDERABLES Final R esult Performing Organization Address City/[facility]/ZIP Co de Phone Number RADHA [address] [place] [address] * eGFR (09/26/2024 4:40 AM CDT) [facility] eGFR 82 >=60 mL/min/1. 73 m2 Comment: Interpretive Data Reference Interval Normal >/= 90 mL/min/1.73m2 Mildly decreased* 60 - 89 mL/min/1.73m2 Mildly to moderately decreased 45 - 59 mL/min/1.73m2 Moderately to severely decreased 30 - 44 mL/min/1.73m2 Severely decreased 15 - 29 mL/min/1.73m2 Kidney Failure < 15 mL/min/1.73m2 *Relative to young adult level Estimated glomerular filtration rate is determined by the 2020 CKD-EPI equation recommended by the National Kidney Foundation (A Unifying Approach to GFR Estimation: Recommendations of the NKF-ASK Task Force on Reassessing the Inclusion of Race in Diagnosing Kidney Disease, JASN 2020). The CKD-EPI equation should not be used for patients with unstable renal function and has not been validated in children and those over 70. Current interpretive data was last reviewed 2021. Blood 09/26/2024 4:40 AM CDT 09/26/2024 5:06 AM CDT us Sharif Smith MD LAB BLOOD ORDERABLES Final R esult Performing Organization Address [facility]/ZIP Co de Phone Number RADHA [address] [place] [address] * Differential, auto (09/26/2024 4:40 AM CDT) [facility] Neutrophil abs 4.6 1.5 - 6.5 K/cumm Imm gran abs 0.0 0.0 - 0.1 K/cumm [facility] Lymphocyte abs 3.2 0.8 - 3.3 K/cumm [facility] Monocyte abs 0.7 0.2 - 0.8 K/cumm [facility] Eosinophil abs 0.2 0.0 - 0.5 K/cumm [facility] Basophil abs 0.1 0.0 - 0.1 K/cumm [facility] Neutrophil pct 52.4 % [facility] Comment: Interpretive Data Percent cell count reference ranges are not reported, since discordance with absolute values may lead to misinterpretation of CBC data. Current Interpretive Data was last revised on 2017. Imm gran pct 0.3 % [facility] Comment: Interpretive Data Percent cell count reference ranges are not reported, since discordance with absolute values may lead to misinterpretation of CBC data. Current Interpretive Data was last revised on 2017. Lymphocyte pct 36.2 % [facility] Comment: Interpretive Data Percent cell count reference ranges are not reported, since discordance with absolute values may lead to misinterpretation of CBC data. Current Interpretive Data was last revised on 2017. Monocyte pct 7.6 % [facility] Comment: Interpretive Data Percent cell count reference ranges are not reported, since discordance with absolute values may lead to misinterpretation of CBC data. Current Interpretive Data was last revised on 2017. Eosinophil pct 2.6 % [facility] Comment: Interpretive Data Percent cell count reference ranges are not reported, since discordance with absolute values may lead to misinterpretation of CBC data. Current Interpretive Data was last revised on 2017. Basophil pct 0.9 % [facility] Comment: Interpretive Data Percent cell count reference ranges are not reported, since discordance with absolute values may lead to misinterpretation of CBC data. Current Interpretive Data was last revised on 2017. Blood 09/26/2024 4:40 AM CDT 09/26/2024 5:06 AM CDT Sharif Smith MD LAB BLOOD ORDERABLES Final R esult [facility] [address] [facility] [place] [address] * (ABNORMAL) CBC with auto differential (09/26/2024 4:40 AM CDT) WBC 8.8 3.8 - 9.9 K/cumm Hgb 12.3 11.9 - 15.5 g/dL [facility] Hct 38.5 35.6 - 45.5 % [facility] Plt 301 150 - 400 K/cumm [facility] MPV 9.2 9.1 - 12.3 fL [facility] RBC 3.76(L) 3.90 - 5.20 M/cumm [facility] MCV 102.4(H) 81.3 - 96.4 fL [facility] MCH 32.7 27.1 - 33.3 pg [facility] MCHC 31.9(L) 32.3 - 35.7 g/dL [facility] RDW CV 13.4 11.1 - 14.9 % [facility] RDW SD 50.7(H) 35.7 - 48.1 fL [facility] NRBC abs 0.00 0.00 - 0.01 K/cumm [facility] Blood 09/26/2024 4:40 AM CDT 09/26/2024 5:06 AM CDT Sharif Smith MD LAB BLOOD ORDERABLES Final R esult Performing Organization Address [facility] Co de Phone Number [address] [place] [address] * Magnesium (09/26/2024 4:40 AM CDT) [facility] Magnesium 1.9 1.4 - 2.5 mg/dL Blood 09/26/2024 4:40 AM CDT 09/26/2024 5:06 AM CDT Sharif Smith MD LAB BLOOD ORDERABLES Final R [facility] Performing Organization Address [facility] de Phone Number [address] [place] [address] * Hemoglobin A1c (09/26/2024 4:40 AM CDT) Hgb A1C 5.3 4.0 - 5.6 % Estimated Average Glucose 105 mg/dL [facility] Comment: The ADA recommends reporting an estimated Average Glucose (eAG) with all Hemoglobin A1c results using the equation derived from a study of 507 normal and diabetic adults. Minority populations were underrepresented and children were not included. (Diabetes Care 31:0317-2380, 2007). The eAG is not equivalent to a fasting glucose. Blood 09/26/2024 4:40 AM CDT 09/26/2024 5:06 AM CDT us Sharif Smith MD LAB BLOOD ORDERABLES Final R esult [facility] [address] [facility] [place] [address] * (ABNORMAL) Comprehensive metabolic panel (09/26/2024 4:40 AM CDT) Sodium 137 135 - 145 mmol/L Potassium, pl 3.7 3.3 - 4.9 mmol/L [facility] Chloride 104 97 - 110 mmol/L [facility] CO2 25 22 - 32 mmol/L [facility] Anion gap 8 2 - 15 mmol/L [facility] BUN 12 6 - 25 mg/dL [facility] Creatinine 0.90 0.60 - 1.10 mg/dL [facility] Glucose 83 70 - 199 mg/dL [facility] Comment: Interpretive Data Fasting glucose >/= 126 mg/dl is diagnostic for diabetes. Fasting is defined as no caloric intake for at least 8 hours. Fasting glucose between 100 mg/dl to 125 mg/dl is diagnostic of prediabetes. In a patient with classic symptoms of hyperglycemia or hyperglycemic crisis, a random glucose >/= 200 mg/dl is diagnostic for diabetes. In the absence of unequivocal hyperglycemia, results should be confirmed by repeat testing. The classification and Diagnosis of Diabetes Diabetes Care 202; 46: S19-S40. Current interpretive data was last revised 2022. Calcium 8.6 8.5 - 10.3 mg/dL [facility] Bilirubin, total 0.3 0.1 - 1.2 mg/dL [facility] Protein, pl 6.1(L) 6.5 - 8.5 g/dL [facility] Albumin 3.6 3.5 - 5.0 g/dL [facility] Alk phos 58 40 - 130 Units/L [facility] ALT 16 7 - 45 Units/L [facility] AST 32 10 - 45 Units/L [facility] Blood 09/26/2024 4:40 AM CDT 09/26/2024 5:06 AM CDT us Sharif Smith MD LAB BLOOD ORDERABLES Final R esult [facility] [address] [facility] [place] [address] * Pro B-type natriuretic peptide (09/25/2024 7:21 PM CDT) NT-proBNP 37 <=300 pg/mL Comment: Interpretive Comments: A. Dyspnea in Acute Care Setting All Ages: < 300 pg/ml, acute heart failure unlikely. < 50 yrs: 300 - 450 pg/ml, further investigation warranted. > 450 pg/ml, acute heart failure likely. 50 - 74 yrs: 300 - 900 pg/ml, further investigation warranted. > 900 pg/ml, acute heart failure likely . > or = 75 yrs: 450 - 1800 pg/ml, further investigation warranted. > 1800 pg/ml, acute heart failure likely. B. Non-acute Setting < 75 yrs < 125 pg/ml, rules out heart failure. > or = 125 pg/ml, further investigation warranted. > or = 75 yrs < 450 pg/ml, rules out heart failure. > or = 450 pg/ml, further investigation warranted. - Knowledge of each individual patient's NT-proBNP range may be more useful than using similar cut-points for every patient. Please note that marked elevations in NT-proBNP levels may be observed in state other than Left Ventricular Congestive Failure, including: acute coronary syndromes, right heart strain/failure (including pulmonary embolism and cor pulmonale), critical illness, renal failure, as well as advanced age. - References: 1. Felix SHAIKH et.al. Eur Heart J. 2006:27:330-337. 2. Giuliana RW, Arun AM. J. AM Lukas Cardiol: Cardiovasc Imag. 2009;2: 216- 225. Interpretive Data Last Revised Date: 2018. Blood 09/25/2024 7:21 PM CDT 09/25/2024 7:25 PM CDT Sharif Smith MD LAB BLOOD ORDERABLES Final R esult Performing Organization Address City/State/[facility] Co de Phone Number [facility] [address] [facility] Department of Laboratories [place], [place] [id number] * POCT hCG, urine (09/25/2024 3:22 PM CDT) HCG, ur, POC Negative Negative Lot Number [id number] QC Backgroud Clear Acceptable QC Control Line Acceptable Urine 09/25/2024 3:22 PM CDT Sharif Smith MD POINT OF CARE TEST ORDERABLE S Final Result * (ABNORMAL) Urinalysis reflex to microscopic and culture Urine (09/25/2024 3:17 PM CDT) Color, ur Yellow Yellow Clarity, ur Cloudy(A) Clear [facility] Specific gravity, ur 1.019 1.003 - 1.030 [facility] pH, urine 6.5 [facility] Comment: Interpretive Data U rine pH is affected by diet, medications, systemic acid-base disturbances, and renal tubular function. pH may affect urinary stone formation. For example, urine pH below 6.0 may help reduce the tendency for calcium phosphate stones and pH greater than 6.0 may reduce the tendency for uric acid stone formation. Source: [facility] Current Interpretive Data was last revised on 2017 Protein, ur ql Negative Negative [facility] Glucose, ur ql Negative Negative [facility] Ketones, ur Negative Negative [facility] Bilirubin, ur Negative Negative [facility] Blood, ur Negative Negative [facility] Urobilinogen, ur <2.0 <2.0 mg/dL [facility] Nitrite, ur Positive(A) Negative [facility] Leukocyte esterase, ur 3+(A) Negative [facility] UA reflex comment Reflex to microscopic UA will be performed. [facility] Urine 09/25/2024 3:17 PM CDT 09/25/2024 3:21 PM CDT Sharif Smith MD LAB MICROBIOLOGY - GENERAL O RDERABLES Final Result [facility] [address] [facility] Department [place] [address] * (ABNORMAL) Drugs of Abuse Screen, Urine without Confirmation (09/25/2024 3:17 PM CDT) [facility] Amphetamine, ur Screen Positive, presumptive (A) CutOff 500ng/mL Comment: Interpretive Data - Amphetamines: Samples containing greater than 500 ng/mL d-methamphetamine or other cross-reacting amphetamine compounds are reported as positive. Amphetamine immunoassays are subject to significant false positive rates due to cross-reactivity of non-amphetamine drugs. Confirmatory testing required for definitive results. Current Interpretive Data was last reviewed 2023. Barbiturates, ur Not Detected CutOff 200ng/mL [facility] Comment: Interpretive Data - Barbiturates: Samples containing greater than 200 ng/mL secobarbital or other cross-reacting barbiturate compounds are reported as positive. False positive and false negative results are possible. Confirmatory testing required for definitive results. Current Interpretive Data was last reviewed 2023. Benzodiazepines, ur Not Detected CutOff 100ng/mL [facility] Comment: Interpretive Data - Benzodiazepines: Samples containing greater than 100 ng/mL nordiazepam or other cross-reacting compounds are reported as positive. False positive and false negative results are possible. Confirmatory testing required for definitive results. Current Interpretive Data was last reviewed 2023. Cannabinoids, ur Screen Positive, presumptive (A) CutOff 50 ng/mL [facility] Comment: Interpretive Data - Cannabinoids: Samples containing greater than 50 ng/mL delta-9 THC -COOH or other cross- reacting compounds are reported as positive. False positive and false negative results are possible. Confirmatory testing required for definitive results. Current Interpretive Data was last reviewed 2023. Cocaine, ur Not Detected CutOff 150ng/mL [facility] Comment: Interpretive Data - Cocaine: Samples containing greater than 150 ng/mL benzoylecgonine or other cross- reacting compounds are reported as positive. False positive and false negative results are possible. Confirmatory testing required for definitive results. Current Interpretive Data was last reviewed 2023. Fentanyl, Ur Not Detected CutOff 5 ng/mL [facility] Comment: Interpretive Data - Fentanyl: Samples containing greater than 5 ng/mL norfentanyl, fentanyl, or other cross-reacting fentanyl compounds are reported as positive. False positive and false negative results are possible. Confirmatory testing required for definitive results. Current Interpretive Data was last reviewed 2023. Methadone, ur Not Detected CutOff 300ng/mL [facility] Comment: Interpretive Data - Methadone: Samples containing greater than 300 ng/mL d,l-methadone or other cross-reacting compounds are reported as positive. False positive and false negative results are possible. Confirmatory testing required for definitive results. Current Interpretive Data was last reviewed 2023. Opiates, ur Not Detected CutOff 300ng/mL [facility] Comment: Interpretive Data - Opiates: Samples containing greater than 300 ng/mL morphine or other cross-reacting compounds are reported as positive. False positive and false negative results are possible. Confirmatory testing required for definitive results. Current Interpretive Data was last reviewed 2023. Oxycodone, ur Not Detected CutOff 100ng/mL [facility] Comment: Interpretive Data - Oxycodone: Samples containing greater than 100 ng/mL oxycodone or other cross-reacting compounds are reported as positive. False positive and false negative results are possible. Confirmatory testing required for definitive results. Current Interpretive Data was last reviewed 2023. Phencyclidine, ur Not Detected CutOff 25 ng/mL [facility] Comment: Interpretive Data - Phencyclidine: Samples containing greater than 25 ng/mL phencyclidine or other cross-reacting compounds are reported as positive. False positive and false negative results are possible. Confirmatory testing required for definitive results. Current Interpretive Data was last reviewed 2023. Urine Creatinine 190 mg/dL [facility] Comment: Interpretive Data Urine Creatinine: < 10 mg/dL is extremely dilute = or > 10 but < 20 mg/dL is dilute = or > 20 mg/dL is normal Current Interpretive Data was last revised on 2017. Urine 09/25/2024 3:17 PM CDT 09/25/2024 3:21 PM CDT [facility]ative [facility] 09/25/2024 3:44 PM CDT Drug of Abuse screening is performed by immunoassay for medical purposes only. This is not to be used for Pain Management purposes. Sharif Smith MD LAB URINE ORDERABLES Final R esult Performing Organization Address [facility] Co de Phone Number [facility] [address] [address] * (ABNORMAL) Urinalysis, microscopic only (09/25/2024 3:17 PM CDT) WBC, ur 21-50(A) 0 - 5 /HPF RBC, ur 6-10(A) 0 - 2 /HPF [facility] Epithelial cells, squamous, ur 1-5 0 - 5 /HPF [facility] Bacteria, ur 1+(A) [facility] Mucous, ur Present(A) [facility] Culture Reflex Comment Reflex to urine culture will be performed. [facility] Urine 09/25/2024 3:17 PM CDT 09/25/2024 3:21 PM CDT Sharif Smith MD LAB URINE ORDERABLES Final R esult Performing Organization Address [facility] de Phone Number [facility] [address] [address] * (ABNORMAL) Urine culture Urine (09/25/2024 3:17 PM CDT) Report Final Report: Greater than or equal to 100,000 colonies/mL of Escherichia coli (.) Comment:Testing performed by : [facility], [address] [place] [address] Organism ESCHERICHIA COLI [facility] Urine 09/25/2024 3:17 PM CDT 09/25/2024 6:04 PM CDT Narrative [facility] - 09/28/2024 6:29 AM CDT Urine culture reflexed based upon urinalysis results. Testing performed by [facility] ([phone]) Organism Antibiotic Method Susceptibility Escherichia coli Ampicillin INTERPRETATION Susceptible Escherichia coli Cefazolin INTERPRETATION Susceptible Escherichia coli Nitrofurantoin INTERPRETATION Susceptible Escherichia coli Gentamicin INTERPRETATION Susceptible Escherichia coli Trimethoprim with Sulfamethoxazole IN TERPRETATION Susceptible Escherichia coli Meropenem INTERPRETATION Susceptible Escherichia coli Cefepime INTERPRETATION Susceptible Escherichia coli Ciprofloxacin INTERPRETATION Susceptible Escherichia coli Ceftazidime INTERPRETATION Susceptible Escherichia coli Ceftriaxone INTERPRETATION Susceptible Escherichia coli Piperacillin/Tazobactam INTERPRETATIO N Susceptible Escherichia coli Cephalexin INTERPRETATION Susceptible Escherichia coli Cefuroxime-axetil INTERPRETATION Susceptible Escherichia coli Cefdinir INTERPRETATION Susceptible Vicente Barrera MD LAB MICROBIOLOGY - GENE RAL ORDERABLES Final Result Performing Organization Address City/[facility] Co de Phone Number [facility] [address] [place] [address] * eGFR (09/25/2024 2:52 PM CDT) Pathologist [facility] eGFR 74 >=60 mL/min/1. 73 m2 Comment: Interpretive Data Reference Interval Normal >/= 90 mL/min/1.73m2 Mildly decreased* 60 - 89 mL/min/1.73m2 Mildly to moderately decreased 45 - 59 mL/min/1.73m2 Moderately to severely decreased 30 - 44 mL/min/1.73m2 Severely decreased 15 - 29 mL/min/1.73m2 Kidney Failure < 15 mL/min/1.73m2 *Relative to young adult level Estimated glomerular filtration rate is determined by the 2020 CKD-EPI equation recommended by the National Kidney Foundation (A Unifying Approach to GFR Estimation: Recommendations of the NKF-ASK Task Force on Reassessing the Inclusion of Race in Diagnosing Kidney Disease, JASN 202). The CKD-EPI equation should not be used for patients with unstable renal function and has not been validated in children and those over 70. Current interpretive data was last reviewed 2021. Blood 09/25/2024 2:52 PM CDT 09/25/2024 2:56 PM CDT us Sharif Smith MD LAB BLOOD ORDERABLES Final R esult Performing Organization Address City/[facility]/ZIP Co de Phone Number RADHA[address] [place] [address] * Differential, auto (09/25/2024 2:52 PM CDT) Neutrophil abs 6.1 1.5 - 6.5 K/cumm Imm gran abs 0.0 0.0 - 0.1 K/cumm [facility] Lymphocyte abs 2.9 0.8 - 3.3 K/cumm [facility] Monocyte abs 0.7 0.2 - 0.8 K/cumm [facility] Eosinophil abs 0.2 0.0 - 0.5 K/cumm [facility] Basophil abs 0.1 0.0 - 0.1 K/cumm [facility] Neutrophil pct 60.6 % [facility] Comment: Interpretive Data Percent cell count reference ranges are not reported, since discordance with absolute values may lead to misinterpretation of CBC data. Current Interpretive Data was last revised on 2017. Imm gran pct 0.4 % [facility] Comment: Interpretive Data Percent cell count reference ranges are not reported, since discordance with absolute values may lead to misinterpretation of CBC data. Current Interpretive Data was last revised on 2017. Lymphocyte pct 29.4 % [facility] Comment: Interpretive Data Percent cell count reference ranges are not reported, since discordance with absolute values may lead to misinterpretation of CBC data. Current Interpretive Data was last revised on 2017. Monocyte pct 7.0 % [facility] Comment: Interpretive Data Percent cell count reference ranges are not reported, since discordance with absolute values may lead to misinterpretation of CBC data. Current Interpretive Data was last revised on 2017. Eosinophil pct 1.7 % [facility] Comment: Interpretive Data Percent cell count reference ranges are not reported, since discordance with absolute values may lead to misinterpretation of CBC data. Current Interpretive Data was last revised on 2017. Basophil pct 0.9 % [facility] Comment: Interpretive Data Percent cell count reference ranges are not reported, since discordance with absolute values may lead to misinterpretation of CBC data. Current Interpretive Data was last revised on 2017. Blood 09/25/2024 2:52 PM CDT 09/25/2024 2:56 PM CDT us Sharif Smith MD LAB BLOOD ORDERABLES Final R esult [address] [address] * (ABNORMAL) CBC with auto differential (09/25/2024 2:52 PM CDT) [facility] WBC 10.0(H) 3.8 - 9.9 K/cumm Hgb 13.3 11.9 - 15.5 g/dL [facility] Hct 41.4 35.6 - 45.5 % [facility] Plt 333 150 - 400 K/cumm [facility] MPV 9.2 9.1 - 12.3 fL [facility] RBC 4.07 3.90 - 5.20 M/cumm [facility] MCV 101.7(H) 81.3 - 96.4 fL [facility] MCH 32.7 27.1 - 33.3 pg [facility] MCHC 32.1(L) 32.3 - 35.7 g/dL [facility] RDW CV 13.3 11.1 - 14.9 % [facility] RDW SD 50.3(H) 35.7 - 48.1 fL [facility] NRBC abs 0.00 0.00 - 0.01 K/cumm [facility] Blood Venous blood specimen / Unknown 09/25/2024 2:52 PM CDT 09/25/2024 2:56 PM CDT us Sharif Smith MD LAB BLOOD ORDERABLES Final R esult Performing Organization Address [facility] Co de Phone Number [address] [address] * (ABNORMAL) TSH (09/25/2024 2:52 PM CDT) [facility] Thyroid Stimulating Hormone 121.00(H) 0.30 - 4.20 mcIUnit/m L Blood 09/25/2024 2:52 PM CDT 09/25/2024 2:56 PM CDT Sharif Smith MD LAB BLOOD ORDERABLES Final R esult Performing Organization Address City/[facility]/ZIP Co de Phone Number [facility] [address] [place] [address] * Ethanol (09/25/2024 2:52 PM CDT) Pathologist [facility] Ethanol <10 <=10 mg/dL Comment: Interpretive Data Legal limit of intoxication > or = 80 mg/dL Levels > or = 400 mg/dL are potentially TOXIC. Current interpretive data was last revised on 2018. Blood 09/25/2024 2:52 PM CDT 09/25/2024 2:56 PM CDT us Sharif Smith MD LAB BLOOD ORDERABLES Final R esult [place] [address] [place] [address] * Comprehensive metabolic panel (09/25/2024 2:52 PM CDT) [facility] Sodium 136 135 - 145 mmol/L Potassium, pl 3.8 3.3 - 4.9 mmol/L [facility] Comment:Hemolyzed; Potassium value may be falsely elevated by as much as 1.0 mmol/L. Suggest redraw and reanalysis. Chloride 100 97 - 110 mmol/L [facility] CO2 26 22 - 32 mmol/L [facility] Anion gap 10 2 - 15 mmol/L [facility] BUN 15 6 - 25 mg/dL [facility] Creatinine 0.98 0.60 - 1.10 mg/dL [facility] Glucose 95 70 - 199 mg/dL [facility] Comment: Interpretive Data Fasting glucose >/= 126 mg/dl is diagnostic for diabetes. Fasting is defined as no caloric intake for at least 8 hours. Fasting glucose between 100 mg/dl to 125 mg/dl is diagnostic of prediabetes. In a patient with classic symptoms of hyperglycemia or hyperglycemic crisis, a random glucose >/= 200 mg/dl is diagnostic for diabetes. In the absence of unequivocal hyperglycemia, results should be confirmed by repeat testing. The classification and Diagnosis of Diabetes Diabetes Care 2021; 46: S19-S40. Current interpretive data was last revised 2022. Calcium 9.6 8.5 - 10.3 mg/dL [facility] Bilirubin, total 0.3 0.1 - 1.2 mg/dL [facility] Protein, pl 7.6 6.5 - 8.5 g/dL [facility] Albumin 4.5 3.5 - 5.0 g/dL [facility] Alk phos 72 40 - 130 Units/L [facility] ALT 21 7 - 45 Units/L [facility] AST 44 10 - 45 Units/L [facility] Blood Venous blood specimen / Unknown 09/25/2024 2:52 PM CDT 09/25/2024 2:56 PM CDT us Sharif Smith MD LAB BLOOD ORDERABLES Final R esult [facility] [address] [facility] [place] [address] from Last 3 Months Insurance [employer] Advance Directives For more information, please contact: [phone] * Full Code (Latest Code Status on File) Date Activated Date Inactivated Comments 09/25/2024 5:49 PM 10/01/2024 4:58 PM 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
--- OUTSIDE RECORDS SUMMARY | 2024-10-07 20:28 | XMS_ITS | Clinical Summary ---
Author Organization [facility] Address [address] [place] [id number] Care Team Providers Care Screen Tacker Name Role Phone Rosy Rodney MD Primary Care Provider [phone] Allergies No known active allergies Medications ondansetron (ZOFRAN-ODT) 4 MG disintegrating tablet Take 1 tablet (4 mg total) by mouth every 8 (eight) hours as needed. 20 tablet Active levothyroxine (SYNTHROID) 100 MCG tablet Take 2 tablets (200 mcg total) by mouth every morning. Active Active Problems Problem Noted Date Diagnosed Date Pyelonephritis 07/03/2023 Social History Tobacco Use Types Packs/Day Years Used Date Smoking Tobacco: Every Day Cigarettes Smokeless Tobacco: Never Tobacco Cessation:Ready to Q uit: Not Asked; Counseling Given: Not Answered Alcohol Use Standard Drinks/Week Comments Yes 0 (1 standard drink = 0.6 oz pur e alcohol) Comments No Sex and Gender Information Value Date Recorded Sex Assigned at Not on file Legal Sex Female 8:03 PM CDT Gender Identity Not on file Sexual Orientation Not on file Last Filed Vital Signs Vital Sign Reading Time Taken Comments Blood Pressure 109/69 07/03/2023 12:03 PM [employer] Pulse 105 07/03/2023 12:03 PM [employer] Temperature 36.8 C (98.2 F) 07/03/2023 12:03 PM [employer] Respiratory Rate 20 07/03/2023 12:03 PM [employer] Oxygen Saturation 100% 07/03/2023 12:03 PM [employer] Inhaled Oxygen Concentration - - Weight 65.9 kg (145 lb 4.5 oz) 07/03/2023 4:14 A M [employer] Height 167.6 cm (5' 6 ) 07/03/2023 4:14 AM [employer] Body Mass Index 23.45 07/03/2023 4:14 AM [employer] Plan of Treatment Health Maintenance Due Date Last Done Comments Cervical Cancer Screening Pap Smear (Age 30 to 64) Every 3 Years 1983 Annual Physical 1986 Hepatitis C 2001 Hepatitis B Vaccines (1 of 3 - 19+ 3-dose series) 2002 Cervical Cancer Screening Pap with HPV Testing (Age 30 to 64) Every 5 Years 2013 Cervical Cancer Screening with HPV 2013 Pneumococcal Vaccine: Pediatrics (0 to 5 Years) and At-Risk Patients (6 to 64 Years) (2 of 2 - PCV) 07/13/2016 07/13/2015 Mammogram Screening 2023 COVID-19 Vaccine ( - season) 2024 Influenza Adult (#1) 2024 05/07/2019, 06/13/2016, 07/13/2015, Additional history exists DTaP, Tdap and Td Vaccines (2 - Td or Tdap) 12/30/2031 12/29/2021 HPV Vaccines Aged Out No longer eligi ble based on patient's age to complete this topic Meningococcal B Vaccine Aged Out No l onger eligible based on patient's age to complete this topic Meningococcal Vaccine Aged Out No inge luis antonio eligible based on patient's age to complete this topic RSV Immunizations Under 20 Months Aged Out No longer eligible based on patient's age to complete this topic Insurance [employer] Advance Directives * Full Code (Latest Code Status on File) Date Activated Date Inactivated Comments 07/03/2023 3:52 AM 07/03/2023 3:09 PM Care Teams Screen Tacker Relationship Specialty Start Date End Date Rosy Rodney MD [address] [place] [address] [place] [id number] PCP - General FAMILY PRACTICE 07/03/23
--- OUTSIDE RECORDS SUMMARY | 2024-10-07 20:28 | XMS_ITS | Clinical Summary ---
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 coli UTI 10/01/2024 Hypothyroidism 10/01/2024 Alcohol withdrawal syndrome without complication 09/25/2024 Encounters Date Type Department Care Team Description 09/25/2024 4:53 PM CDT - 10/01/2024 12:30 PM CDT Hospital Encounter [facility] [address] [address] Sharif Smith MD Uzodi, Nnenna Louisa, MD Alcohol withdrawal syndrome without complication (HCC) (Primary Dx); Urinary tract infection without hematuria, site unspecified; Amphetamine use; Amphetamine abuse (HCC); Anxiety; E. coli UTI; Hypothyroidism, unspecified type Discharge Disposition: Discharge to other rehab with plan readmit 09/24/2024 Documentation [facility] Case Management [address] [place] [id number] Desiree Horton from Last 3 Months Immunizations Immunization Administration Dates Next Due Tdap 12/29/2021 Surgical History Surgery Date Site/Laterality Comments HYSTERECTOMY APPENDECTOMY HIP SURGERY SECTION Medical History Medical History Date Comments Thyroid disease Social History Tobacco Use Types Packs/Day Years Used Date Smoking Tobacco: Every Day Cigarettes Alcohol Use Standard Drinks/Week Comments Not Currently 0 (1 standard drink = 0.6 oz pur e alcohol) [facility] Utilities Answer Date Recorded In the [...] often do you attend chur ch or jew services? Never 09/26/2024 Do you belong to any clubs o r organizations such as mu-ism groups, unions, fraternal or athletic groups, or [...] any time in the past 12 m [facility], were you homeless or living in a penitentiary (including now)? No 09/26/2024 Personal Safety Answer Date Recorded Have you ever been in or are you currently in a harmful physical or emotional relationship or is someone making you feel afraid or unsafe? 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 Gender Identity Not on file Sexual Orientation Not on file Obstetrics History Last Filed Vital Signs Vital Sign Reading [...] 09/25/2024 7:53 PM CDT Plan of Treatment Health Maintenance Due Date Last Done Comments Breast Cancer Screening-Mammogram 1983 Depression Screening 1983 Hepatitis C Screening 1983 Varicella Vaccines (1 of 2 - 13+ 2-dose series) 1996 Hepatitis B Screening 2001 Regular Well Visit/Exam 18-64 2001 Pneumococcal vaccine <65 (2 of 2 - PCV) 07/13/2016 07/13/2015 Influenza Vaccine (#1) 2024 9, 06/13/2016, 07/13/2015, Additional history exists DTaP/Tdap/Td Vaccine (2 - Td or Tdap) 12/30/2031 12/29/2021 HPV Vaccines Aged Out No longer eligi ble based on patient's age to complete this topic Procedures Procedure Name Priority Date/Time Associated Diagnosis [...] ORDERABLES Final R esult Performing Organization Address City/[facility] Co de Phone Number RADHA[address] [employer] [place] [address] * Phosphorus (09/30/2024 6:23 AM CDT) Phosphorus, pl 2.7 2.3 - 4.5 mg/dL Blood 09/30/2024 6:23 AM CDT 09/30/2024 6:38 AM CDT Sharif Smith MD LAB BLOOD ORDERABLES Final R esult Performing Organization Address City/[facility] Co de Phone Number [address] [employer] [place] [address] * Magnesium (09/30/2024 6:23 AM CDT) Magnesium 2.2 1.4 - 2.5 mg/dL Blood 09/30/2024 6:23 AM CDT 09/30/2024 6:38 AM CDT us Sharif Smith MD LAB BLOOD ORDERABLES Final R esult [facility] [address] [facility] Department [place] [address] * Comprehensive metabolic panel (09/30/2024 6:23 AM CDT) Sodium 136 135 - 145 mmol/L Potassium, pl 3.9 3.3 - 4.9 mmol/L [facility] Comment:Hemolyzed; Potassium value may be falsely elevated by as much as 1.0 mmol/L. Suggest redraw and reanalysis. Chloride 103 97 - 110 mmol/L [facility] CO2 24 22 - 32 mmol/L [facility] Anion gap 9 2 - 15 mmol/L [facility] BUN 12 6 - 25 mg/dL [facility] Creatinine 0.94 0.60 - 1.10 mg/dL [facility] Glucose 75 70 - 199 mg/dL [facility] Comment: Interpretive Data Fasting glucose >/= 126 [...] 2022. Calcium 9.1 8.5 - 10.3 mg/dL [facility] Bilirubin, total 0.4 0.1 - 1.2 mg/dL [facility] Protein, pl 7.1 6.5 - 8.5 g/dL [facility] Albumin 4.1 3.5 - 5.0 g/dL [facility] Alk phos 62 40 - 130 Units/L [facility] ALT 18 7 - 45 Units/L [facility] AST See Comment 10 - 45 [facility] Comment:Credited; Hemolyzed Specimen Blood 09/30/2024 6:23 AM CDT 09/30/2024 6:38 AM CDT Sharif Smith MD LAB BLOOD ORDERABLES Final R esult Performing Organization Address [facility] de Phone Number RADHA [address] [place] [address] * eGFR (09/29/2024 8:43 AM CDT) eGFR [...] ORDERABLES Final R esult Performing Organization Address City/[facility] Co de Phone Number RADHA [address] Department [place] [employer] [place] [address] * Differential, auto (09/29/2024 8:43 AM CDT) Pathologist [facility] Neutrophil abs 5.0 1.5 - 6.5 K/cumm Imm gran abs 0.0 0.0 - 0.1 K/cumm [facility] Lymphocyte abs 2.6 0.8 - 3.3 K/cumm [facility] Monocyte abs 0.8 0.2 - 0.8 K/cumm [facility] Eosinophil abs 0.2 0.0 - 0.5 K/cumm [facility] Basophil abs 0.1 0.0 - 0.1 K/cumm [facility] Neutrophil pct 57.7 % [facility] Comment: Interpretive Data Percent cell count reference ranges are not reported, since discordance with absolute values may lead to misinterpretation of CBC data. Current Interpretive Data was last revised on 2017. Imm gran pct 0.2 % [facility] Comment: Interpretive Data Percent cell count reference ranges are not reported, since discordance with absolute values may lead to misinterpretation of CBC data. Current Interpretive Data was last revised on 2017. Lymphocyte pct 29.8 % [facility] Comment: Interpretive Data Percent cell count reference ranges are not reported, since discordance with absolute values may lead to misinterpretation of CBC data. Current Interpretive Data was last revised on 2017. Monocyte pct 9.6 % [facility] Comment: Interpretive Data Percent cell count reference ranges are not reported, since discordance with absolute values may lead to misinterpretation of CBC data. Current Interpretive Data was last revised on 2017. Eosinophil pct 2.0 % [facility] Comment: Interpretive Data Percent cell count reference ranges are not reported, since discordance with absolute values may lead to misinterpretation of CBC data. Current Interpretive Data was last revised on 2017. Basophil pct 0.7 % [facility] Comment: Interpretive Data Percent cell count reference ranges are not reported, since discordance with absolute values may lead to misinterpretation of CBC data. Current Interpretive Data was last revised on 2017. Blood 09/29/2024 8:43 AM CDT 09/29/2024 9:03 AM CDT us Sharif Smith MD LAB BLOOD ORDERABLES Final R esult RADHA EDMOND [address] [facility] Department [place] [address] * Iron profile w/ IBC (09/29/2024 8:43 AM CDT) Iron 76 35 - 145 mcg/dL TIBC 322 250 - 400 mcg/dL [facility] Transferrin saturation 24 20 - 50 % [facility] Blood 09/29/2024 8:43 AM CDT 09/29/2024 9:03 AM CDT us Sharif Smith MD LAB BLOOD ORDERABLES Final R esult Performing Organization Address City/[facility] Co de Phone Number [address] [employer] [place] [address] * (ABNORMAL) CBC with auto differential (09/29/2024 8:43 AM CDT) WBC 8.7 3.8 - 9.9 K/cumm Hgb 12.4 11.9 - 15.5 g/dL [facility] Hct 38.6 35.6 - 45.5 % [facility] Plt 247 150 - 400 K/cumm [facility] MPV 9.4 9.1 - 12.3 fL [facility] RBC 3.86(L) 3.90 - 5.20 M/cumm [facility] MCV 100.0(H) 81.3 - 96.4 fL [facility] MCH 32.1 27.1 - 33.3 pg [facility] MCHC 32.1(L) 32.3 - 35.7 g/dL [facility] RDW CV 13.2 11.1 - 14.9 % [facility] RDW SD 49.0(H) 35.7 - 48.1 fL [facility] NRBC abs 0.00 0.00 - 0.01 K/cumm [facility] Blood 09/29/2024 8:43 AM CDT 09/29/2024 9:03 AM CDT us Sharif Smith MD LAB BLOOD ORDERABLES Final R esult Performing Organization Address City/[facility]/ZIP Co de Phone Number [address] [employer] [place] [address] * Phosphorus (09/29/2024 8:43 AM CDT) Phosphorus, pl 3.1 2.3 - 4.5 mg/dL Blood 09/29/2024 8:43 AM CDT 09/29/2024 9:03 AM CDT Sharif Smith MD LAB BLOOD ORDERABLES Final R esult Performing Organization Address [facility] Co de Phone Number [address] [address] * Magnesium (09/29/2024 8:43 AM CDT) Pathologist [facility] Magnesium 1.9 1.4 - 2.5 mg/dL Blood 09/29/2024 8:43 AM CDT 09/29/2024 9:03 AM CDT Sharif Smith MD LAB BLOOD ORDERABLES Final R esult Performing Organization Address [facility] de Phone Number [address] [address] * (ABNORMAL) Comprehensive metabolic panel (09/29/2024 8:43 AM CDT) Pathologist [facility] Sodium 134(L) 135 - 145 mmol/L Potassium, pl 3.6 3.3 - 4.9 mmol/L [facility] Chloride 101 97 - 110 mmol/L [facility] CO2 26 22 - 32 mmol/L [facility] Anion gap 7 2 - 15 mmol/L [facility] BUN 11 6 - 25 mg/dL [facility] Creatinine 0.84 0.60 - 1.10 mg/dL [facility] Glucose 73 70 - 199 mg/dL [facility] Comment: Interpretive Data Fasting glucose >/= 126 [...] 2022. Calcium 9.0 8.5 - 10.3 mg/dL [facility] Bilirubin, total 0.3 0.1 - 1.2 mg/dL [facility] Protein, pl 6.3(L) 6.5 - 8.5 g/dL [facility] Albumin 3.7 3.5 - 5.0 g/dL [facility] Alk phos 55 40 - 130 Units/L [facility] ALT 14 7 - 45 Units/L [facility] AST 30 10 - 45 Units/L [facility] Blood 09/29/2024 8:43 AM CDT 09/29/2024 9:03 AM CDT Sharif Smith MD LAB BLOOD ORDERABLES Final R esult [facility] [address] [facility] Department [place] [address] * eGFR (09/27/2024 7:19 AM CDT) eGFR [...] ORDERABLES Final R esult Performing Organization Address City/[facility] Co de Phone Number [address] [place] [address] * (ABNORMAL) Vitamin D 25 hydroxy (09/27/2024 7:19 AM CDT) [facility] Vitamin D 25-OH 10.0(L) 30.0 - 80.0 ng/mL Blood 09/27/2024 7:19 AM CDT 09/27/2024 8:04 AM CDT Sharif Smith MD LAB BLOOD ORDERABLES Final R esult Performing Organization Address [facility] Co de Phone Number [address] [place] [address] * Vitamin B12 (09/27/2024 7:19 AM CDT) [facility] Vitamin B12 361 230 - 1,250 pg/mL Blood 09/27/2024 7:19 AM CDT 09/27/2024 8:04 AM CDT Sharif Smith MD LAB BLOOD ORDERABLES Final R esult Performing Organization Address [facility] Co de Phone Number [address] [place] [address] * Basic metabolic panel (09/27/2024 7:19 AM CDT) [facility] Sodium 135 135 - 145 mmol/L Potassium, pl 3.7 3.3 - 4.9 mmol/L [facility] Chloride 101 97 - 110 mmol/L [facility] CO2 27 22 - 32 mmol/L [facility] Anion gap 7 2 - 15 mmol/L [facility] BUN 8 6 - 25 mg/dL [facility] Creatinine 0.88 0.60 - 1.10 mg/dL [facility] Glucose 77 70 - 199 mg/dL [facility] Comment: Interpretive Data Fasting glucose >/= 126 [...] 2022. Calcium 8.9 8.5 - 10.3 mg/dL [facility] EDMOND Blood 09/27/2024 7:19 AM CDT 09/27/2024 8:04 AM CDT us Sharif Smith MD LAB BLOOD ORDERABLES Final R esult [facility] [address] [facility] Department of Laboratories [place], [place] [id number] * eGFR (09/26/2024 4:40 AM CDT) eGFR 82 >=60 mL/min/1. 73 m2 Comment: [...] LAB BLOOD ORDERABLES Final R esult RADHA [address] [facility] Department [place] [address] * Differential, auto (09/26/2024 4:40 AM CDT) Neutrophil abs 4.6 1.5 - 6.5 K/cumm Imm gran abs 0.0 0.0 - 0.1 K/cumm [facility] Lymphocyte abs 3.2 0.8 - 3.3 K/cumm [facility] Monocyte abs 0.7 0.2 - 0.8 K/cumm [facility] Eosinophil abs 0.2 0.0 - 0.5 K/cumm [facility] Basophil abs 0.1 0.0 - 0.1 K/cumm [facility] Neutrophil pct 52.4 % [facility] Comment: Interpretive Data Percent cell count reference ranges are not reported, since discordance with absolute values may lead to misinterpretation of CBC data. Current Interpretive Data was last revised on 2017. Imm gran pct 0.3 % [facility] Comment: Interpretive Data Percent cell count reference ranges are not reported, since discordance with absolute values may lead to misinterpretation of CBC data. Current Interpretive Data was last revised on 2017. Lymphocyte pct 36.2 % [facility] Comment: Interpretive Data Percent cell count reference ranges are not reported, since discordance with absolute values may lead to misinterpretation of CBC data. Current Interpretive Data was last revised on 2017. Monocyte pct 7.6 % [facility] Comment: Interpretive Data Percent cell count reference ranges are not reported, since discordance with absolute values may lead to misinterpretation of CBC data. Current Interpretive Data was last revised on 2017. Eosinophil pct 2.6 % [facility] Comment: Interpretive Data Percent cell count reference ranges are not reported, since discordance with absolute values may lead to misinterpretation of CBC data. Current Interpretive Data was last revised on 2017. Basophil pct 0.9 % [facility] Comment: Interpretive Data Percent cell count reference ranges are not reported, since discordance with absolute values may lead to misinterpretation of CBC data. Current Interpretive Data was last revised on 2017. Blood 09/26/2024 4:40 AM CDT 09/26/2024 5:06 AM CDT us Sharif Smith MD LAB BLOOD ORDERABLES Final R esult Performing Organization Address City/[facility] Co de Phone Number [address] [place] [address] * (ABNORMAL) CBC with auto differential (09/26/2024 4:40 AM CDT) WBC 8.8 3.8 - 9.9 K/cumm Hgb 12.3 11.9 - 15.5 g/dL [facility] Hct 38.5 35.6 - 45.5 % [facility] Plt 301 150 - 400 K/cumm [facility] MPV 9.2 9.1 - 12.3 fL [facility] RBC 3.76(L) 3.90 - 5.20 M/cumm [facility] MCV 102.4(H) 81.3 - 96.4 fL [facility] MCH 32.7 27.1 - 33.3 pg [facility] MCHC 31.9(L) 32.3 - 35.7 g/dL [facility] RDW CV 13.4 11.1 - 14.9 % [facility] RDW SD 50.7(H) 35.7 - 48.1 fL [facility] NRBC abs 0.00 0.00 - 0.01 K/cumm [facility] Blood 09/26/2024 4:40 AM CDT 09/26/2024 5:06 AM CDT us Sharif Smith MD LAB BLOOD ORDERABLES Final R esult Performing Organization Address City/[facility] Co de Phone Number RAD[address] [place] [address] * Magnesium (09/26/2024 4:40 AM CDT) Magnesium 1.9 1.4 - 2.5 mg/dL Blood 09/26/2024 4:40 AM CDT 09/26/2024 5:06 AM CDT Sharif Smith MD LAB BLOOD ORDERABLES Final R [facility] Performing Organization Address [facility] de Phone Number RADHA [address] [address] * Hemoglobin A1c (09/26/2024 4:40 AM CDT) Pathologist [facility] Hgb A1C 5.3 4.0 - 5.6 % Estimated Average Glucose 105 mg/dL [facility] Comment: The ADA recommends reporting an estimated Average Glucose (eAG) with all Hemoglobin A1c results using the equation derived from a study of 507 normal and diabetic adults. Minority populations were underrepresented and children were not included. (Diabetes Care 31:6564-3804, 2008). The eAG is not equivalent to a fasting glucose. Blood 09/26/2024 4:40 AM CDT 09/26/2024 5:06 AM CDT Sharif Smith MD LAB BLOOD ORDERABLES Final R [facility] Performing Organization Address [facility] de Phone Number RADHA [address] [address] * (ABNORMAL) Comprehensive metabolic panel (09/26/2024 4:40 AM CDT) [facility] Sodium 137 135 - 145 mmol/L Potassium, pl 3.7 3.3 - 4.9 mmol/L [facility] Chloride 104 97 - 110 mmol/L [facility] CO2 25 22 - 32 mmol/L [facility] Anion gap 8 2 - 15 mmol/L [facility] BUN 12 6 - 25 mg/dL [facility] Creatinine 0.90 0.60 - 1.10 mg/dL [facility] Glucose 83 70 - 199 mg/dL [facility] Comment: Interpretive Data Fasting glucose >/= 126 [...] 2022. Calcium 8.6 8.5 - 10.3 mg/dL [facility] Bilirubin, total 0.3 0.1 - 1.2 mg/dL [facility] Protein, pl 6.1(L) 6.5 - 8.5 g/dL [facility] Albumin 3.6 3.5 - 5.0 g/dL [facility] Alk phos 58 40 - 130 Units/L [facility] ALT 16 7 - 45 Units/L [facility] AST 32 10 - 45 Units/L [facility] Blood 09/26/2024 4:40 AM CDT 09/26/2024 5:06 AM CDT Sharif Smith MD LAB BLOOD ORDERABLES Final R esult [facility] [address] [facility] Department [place] [address] * Pro B-type natriuretic peptide (09/25/2024 7:21 [...] et.al. Eur Heart J. 2006:27:330-337. 2. Giuliana VELÁZQUEZ, Arun LOREDO. J. AM Lukas Cardiol: Cardiovasc Imag. 2009;2: 216- 225. Interpretive Data Last Revised Date: 2018. Blood 09/25/2024 7:21 PM CDT 09/25/2024 7:25 PM CDT Sharif Smith MD LAB BLOOD ORDERABLES Final R esult [facility] [address] [facility] Department [place] [address] * POCT hCG, urine (09/25/2024 3:22 PM CDT) HCG, ur, POC Negative Negative Lot Number [id number] QC Backgroud Clear Acceptable QC Control Line Acceptable Urine 09/25/2024 3:22 PM CDT Sharif Smith MD POINT OF CARE TEST ORDERABLE S Final Result * (ABNORMAL) Urinalysis reflex to microscopic and culture Urine (09/25/2024 3:17 PM CDT) Color, ur Yellow Yellow Clarity, ur Cloudy(A) Clear [facility] Specific gravity, ur 1.019 1.003 - 1.030 RAHDA pH, urine 6.5 RAD[facility] Comment: Interpretive Data U rine pH is affected by diet, medications, systemic acid-base disturbances, and renal tubular function. pH may affect urinary stone formation. For example, urine pH below 6.0 may help reduce the tendency for calcium phosphate stones and pH greater than 6.0 may reduce the tendency for uric acid stone formation. Source: [facility] Current Interpretive Data was last revised on 2017 Protein, ur ql Negative Negative [facility] Glucose, ur ql Negative Negative [facility] Ketones, ur Negative Negative [facility] Bilirubin, ur Negative Negative [facility] Blood, ur Negative Negative [facility] Urobilinogen, ur <2.0 <2.0 mg/dL [facility] Nitrite, ur Positive(A) Negative [facility] Leukocyte esterase, ur 3+(A) Negative [facility] UA reflex comment Reflex to microscopic UA will be performed. [facility] Urine 09/25/2024 3:17 PM CDT 09/25/2024 3:21 PM CDT Sharif Smith MD LAB MICROBIOLOGY - GENERAL O RDERABLES Final Result [facility] [address] [facility] Department [place] [address] * (ABNORMAL) Drugs of Abuse Screen, Urine without Confirmation (09/25/2024 3:17 PM CDT) Amphetamine, ur Screen Positive, presumptive (A) CutOff 500ng/mL Comment: Interpretive Data - Amphetamines: Samples containing greater than 500 ng/mL d-methamphetamine or other cross-reacting amphetamine compounds are reported as positive. Amphetamine immunoassays are subject to significant false positive rates due to cross-reactivity of non-amphetamine drugs. Confirmatory testing required for definitive results. Current Interpretive Data was last reviewed 2023. Barbiturates, ur Not Detected CutOff 200ng/mL [facility] Comment: Interpretive Data - Barbiturates: Samples containing greater than 200 ng/mL secobarbital or other cross-reacting barbiturate compounds are reported as positive. False positive and false negative results are possible. Confirmatory testing required for definitive results. Current Interpretive Data was last reviewed 2023. Benzodiazepines, ur Not Detected CutOff 100ng/mL [facility] Comment: Interpretive Data - Benzodiazepines: Samples containing greater than 100 ng/mL nordiazepam or other cross-reacting compounds are reported as positive. False positive and false negative results are possible. Confirmatory testing required for definitive results. Current Interpretive Data was last reviewed 2023. Cannabinoids, ur Screen Positive, presumptive (A) CutOff 50 ng/mL [facility] Comment: Interpretive Data - Cannabinoids: Samples containing greater than 50 ng/mL delta-9 THC -COOH or other cross- reacting compounds are reported as positive. False positive and false negative results are possible. Confirmatory testing required for definitive results. Current Interpretive Data was last reviewed 2023. Cocaine, ur Not Detected CutOff 150ng/mL [facility] Comment: Interpretive Data - Cocaine: Samples containing greater than 150 ng/mL benzoylecgonine or other cross- reacting compounds are reported as positive. False positive and false negative results are possible. Confirmatory testing required for definitive results. Current Interpretive Data was last reviewed 2023. Fentanyl, Ur Not Detected CutOff 5 ng/mL [facility] Comment: Interpretive Data - Fentanyl: Samples containing greater than 5 ng/mL norfentanyl, fentanyl, or other cross-reacting fentanyl compounds are reported as positive. False positive and false negative results are possible. Confirmatory testing required for definitive results. Current Interpretive Data was last reviewed 2023. Methadone, ur Not Detected CutOff 300ng/mL [facility] Comment: Interpretive Data - Methadone: Samples containing greater than 300 ng/mL d,l-methadone or other cross-reacting compounds are reported as positive. False positive and false negative results are possible. Confirmatory testing required for definitive results. Current Interpretive Data was last reviewed 2023. Opiates, ur Not Detected CutOff 300ng/mL [facility] Comment: Interpretive Data - Opiates: Samples containing greater than 300 ng/mL morphine or other cross-reacting compounds are reported as positive. False positive and false negative results are possible. Confirmatory testing required for definitive results. Current Interpretive Data was last reviewed 2023. Oxycodone, ur Not Detected CutOff 100ng/mL [facility] Comment: Interpretive Data - Oxycodone: Samples containing greater than 100 ng/mL oxycodone or other cross-reacting compounds are reported as positive. False positive and false negative results are possible. Confirmatory testing required for definitive results. Current Interpretive Data was last reviewed 2023. Phencyclidine, ur Not Detected CutOff 25 ng/mL [facility] Comment: Interpretive Data - Phencyclidine: Samples containing greater than 25 ng/mL phencyclidine or other cross-reacting compounds are reported as positive. False positive and false negative results are possible. Confirmatory testing required for definitive results. Current Interpretive Data was last reviewed 2023. Urine Creatinine 190 mg/dL [facility] Comment: Interpretive Data Urine Creatinine: < 10 mg/dL is extremely dilute = or > 10 but < 20 mg/dL is dilute = or > 20 mg/dL is normal Current Interpretive Data was last revised on 2017. Urine 09/25/2024 3:17 PM CDT 09/25/2024 3:21 PM CDT Narrative [facility] - 09/25/2024 3:44 PM CDT Drug of Abuse screening is performed by immunoassay for medical purposes only. This is not to be used for Pain Management purposes. Sharif Smith MD LAB URINE ORDERABLES Final R esult Performing Organization Address [facility] Co de Phone Number [address] [employer] [place] [address] * (ABNORMAL) Urinalysis, microscopic only (09/25/2024 3:17 PM CDT) WBC, ur 21-50(A) 0 - 5 /HPF RBC, ur 6-10(A) 0 - 2 /HPF [facility] Epithelial cells, squamous, ur 1-5 0 - 5 /HPF [facility] Bacteria, ur 1+(A) [facility] Mucous, ur Present(A) [facility] Culture Reflex Comment Reflex to urine culture will be performed. [facility] Urine 09/25/2024 3:17 PM CDT 09/25/2024 3:21 PM CDT Sharif Smith MD LAB URINE ORDERABLES Final R esult Performing Organization Address [facility] Co de Phone Number [address] [place] [address] * (ABNORMAL) Urine culture Urine (09/25/2024 3:17 PM CDT) Report Final Report: Greater than or equal to 100,000 colonies/mL of Escherichia coli (.) Comment:Testing performed by : [facility], [address] [place] [address] Organism ESCHERICHIA COLI RADHASUZANNE Urine 09/25/2024 3:17 PM CDT 09/25/2024 6:04 PM CDT Narrative [facility] - 09/28/2024 6:29 AM CDT Urine culture reflexed based upon urinalysis results. Testing performed by [facility] Microbiology Laboratory ([phone]) Organism Antibiotic Method Susceptibility Escherichia coli Ampicillin [...] INTERPRETATION Susceptible Escherichia coli Cefdinir INTERPRETATION Susceptible us Vicente Barrera MD LAB MICROBIOLOGY - [facility] ORDERABLES Final Result [facility] [id number] [facility] Department [place] [address] * eGFR (09/25/2024 2:52 PM CDT) eGFR 74 >=60 mL/min/1. 73 m2 Comment: [...] Inclusion of Race in Diagnosing Kidney Disease, EDMONDSN 2020). The CKD-EPI equation should not be used for patients with unstable renal function and has not been validated in children and those over 70. Current interpretive data was last reviewed 2021. Blood 09/25/2024 2:52 PM CDT 09/25/2024 2:56 PM CDT Sharif Smith MD LAB BLOOD ORDERABLES Final R esult [facility] [address] [facility] Department [place] [address] * Differential, auto (09/25/2024 2:52 PM CDT) Pathologist [facility] Neutrophil abs 6.1 1.5 - 6.5 K/cumm Imm gran abs 0.0 0.0 - 0.1 K/cumm [facility] Lymphocyte abs 2.9 0.8 - 3.3 K/cumm [facility] Monocyte abs 0.7 0.2 - 0.8 K/cumm [facility] Eosinophil abs 0.2 0.0 - 0.5 K/cumm [facility] Basophil abs 0.1 0.0 - 0.1 K/cumm [facility] Neutrophil pct 60.6 % [facility] Comment: Interpretive Data Percent cell count reference ranges are not reported, since discordance with absolute values may lead to misinterpretation of CBC data. Current Interpretive Data was last revised on 2017. Imm gran pct 0.4 % [facility] Comment: Interpretive Data Percent cell count reference ranges are not reported, since discordance with absolute values may lead to misinterpretation of CBC data. Current Interpretive Data was last revised on 2017. Lymphocyte pct 29.4 % [facility] Comment: Interpretive Data Percent cell count reference ranges are not reported, since discordance with absolute values may lead to misinterpretation of CBC data. Current Interpretive Data was last revised on 2017. Monocyte pct 7.0 % [facility] Comment: Interpretive Data Percent cell count reference ranges are not reported, since discordance with absolute values may lead to misinterpretation of CBC data. Current Interpretive Data was last revised on 2017. Eosinophil pct 1.7 % [facility] Comment: Interpretive Data Percent cell count reference ranges are not reported, since discordance with absolute values may lead to misinterpretation of CBC data. Current Interpretive Data was last revised on 2017. Basophil pct 0.9 % [facility] Comment: Interpretive Data Percent cell count reference ranges are not reported, since discordance with absolute values may lead to misinterpretation of CBC data. Current Interpretive Data was last revised on 2017. Blood 09/25/2024 2:52 PM CDT 09/25/2024 2:56 PM CDT us Sharif Smith MD LAB BLOOD ORDERABLES Final R esult [place] [id number] [facility] Department [place] [address] * (ABNORMAL) CBC with auto differential (09/25/2024 2:52 PM CDT) Pathologist [facility] WBC 10.0(H) 3.8 - 9.9 K/cumm Hgb 13.3 11.9 - 15.5 g/dL [facility] Hct 41.4 35.6 - 45.5 % [facility] Plt 333 150 - 400 K/cumm [facility] MPV 9.2 9.1 - 12.3 fL [facility] RBC 4.07 3.90 - 5.20 M/cumm [facility] MCV 101.7(H) 81.3 - 96.4 fL [facility] MCH 32.7 27.1 - 33.3 pg [facility] MCHC 32.1(L) 32.3 - 35.7 g/dL [facility] RDW CV 13.3 11.1 - 14.9 % [facility] RDW SD 50.3(H) 35.7 - 48.1 fL [facility] NRBC abs 0.00 0.00 - 0.01 K/cumm [facility] Blood Venous blood specimen / Unknown 09/25/2024 2:52 PM CDT 09/25/2024 2:56 PM CDT Sharif Smith MD LAB BLOOD ORDERABLES Final R esult Performing Organization Address [facility] de Phone Number [address] [place] [address] * (ABNORMAL) TSH (09/25/2024 2:52 PM CDT) Thyroid Stimulating Hormone 121.00(H) 0.30 - 4.20 mcIUnit/m L Blood 09/25/2024 2:52 PM CDT 09/25/2024 2:56 PM CDT Sharif Smith MD LAB BLOOD ORDERABLES Final R esult Performing Organization Address [facility] de Phone Number [address] [address] * Ethanol (09/25/2024 2:52 PM CDT) Pathologist [facility] Ethanol <10 <=10 mg/dL Comment: Interpretive Data Legal limit of intoxication > or = 80 mg/dL Levels > or = 400 mg/dL are potentially TOXIC. Current interpretive data was last revised on 2018. Blood 09/25/2024 2:52 PM CDT 09/25/2024 2:56 PM CDT Sharif Smith MD LAB BLOOD ORDERABLES Final R esult Performing Organization Address [facility] Co de Phone Number [address] [place] [address] * Comprehensive metabolic panel (09/25/2024 2:52 PM CDT) Pathologist [facility] Sodium 136 135 - 145 mmol/L Potassium, pl 3.8 3.3 - 4.9 mmol/L [facility] Comment:Hemolyzed; Potassium value may be falsely elevated by as much as 1.0 mmol/L. Suggest redraw and reanalysis. Chloride 100 97 - 110 mmol/L [facility] CO2 26 22 - 32 mmol/L [facility] Anion gap 10 2 - 15 mmol/L [facility] BUN 15 6 - 25 mg/dL [facility] Creatinine 0.98 0.60 - 1.10 mg/dL [facility] Glucose 95 70 - 199 mg/dL [facility] Comment: Interpretive Data Fasting glucose >/= 126 [...] 2022. Calcium 9.6 8.5 - 10.3 mg/dL [facility] Bilirubin, total 0.3 0.1 - 1.2 mg/dL [facility] Protein, pl 7.6 6.5 - 8.5 g/dL [facility] Albumin 4.5 3.5 - 5.0 g/dL [facility] Alk phos 72 40 - 130 Units/L [facility] ALT 21 7 - 45 Units/L [facility] AST 44 10 - 45 Units/L [facility] Blood Venous blood specimen / Unknown 09/25/2024 2:52 PM CDT 09/25/2024 2:56 PM CDT Sharif Smith MD LAB BLOOD ORDERABLES Final R esult [facility] [address] [facility] Department of Laboratories [place], [place] [id number] from Last 3 Months Insurance IDPA IDPA Advance Directives For more information, please contact: [phone] * Full Code (Latest Code Status on File) Date Activated Date Inactivated Comments 09/25/2024 5:49 PM 10/01/2024 4:58 PM Care Teams Steward Dishwasher Relationship Specialty Start Date End Date Rosy Rodney MD [address] [place] [address] [facility] [address] [place] [address] PCP - General Family Medicine 12/29/21
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
[2024-10-07 20:48] LABS: Basophils Absolute Auto 0.1 K/mm3 (0.0-0.1); Basophils Percent Auto 0.9 % (0.2-1.2); Eosinophils Absolute Auto 0.2 K/mm3 (0-0.3); Eosinophils Percent Auto 2.2 % (0-4.4); Hematocrit 38.9 % (37.0-47.0); Hemoglobin 12.8 g/dL (12.0-15.0); Immature Granulocyte Absolute 0.03 K/mm3 (0.00-0.031); Immature Granulocyte Percent A 0.3 % (0-0.5); Lymphocytes Absolute Auto 3.47 K/mm3 (0.9-3.2); Lymphocytes Percent Auto 31.8 % (18.3-44.2); Mean Corpuscular HGB Conc 32.9 g/dl (32-36); Mean Corpuscular Hemoglobin 32.7 pg (26-34); Mean Corpuscular Volume 99.5 fl (80-100); Mean Platelet Volume 9.4 fl (7.4-10.4); Monocytes Percent Auto 8.8 % (2.6-8.5); Neutrophils Absolute Auto 6.1 K/mm3 (1.3-6.7); Platelet Count Result 306 k/mm3 (150-375); Red Blood Count 3.91 M/mm3 (4.2-5.4); White Blood Count 10.9 K/mm3 (4.5-10.0)
[2024-10-07 20:59] LABS: INR 0.9; Prothrombin Time 12.4 Seconds (11.1-14.7)
[2024-10-07 21:00] LABS: Partial Thromboplastin Time 30.6 Seconds (22.3-36.8)
[2024-10-07 21:10] LABS: Alanine Aminotransferase 29 U/L (6-35); Albumin Level 4.9 g/dL (3.5-5.1); Alkaline Phosphatase 56 U/L (38-126); Anion Gap 10 mmol/L (4-12); Aspartate Amino Transferase 40 U/L (14-36); Bilirubin,Total 0.3 mg/dL (0.2-1.3); Blood Urea Nitrogen 18 mg/dL (7-17); Calcium 10.1 mg/dL (8.4-10.2); Carbon Dioxide 29 mmol/L (22-30); Chloride 102 mmol/L (98-107); Estimated Glomerular Filt Rate > 60; Glucose 78 mg/dL (65-110); Lipase 290 U/L (23-300); Sodium 141 mmol/L (137-145)
[2024-10-07 21:23] LABS: Troponin I < 0.012 ng/mL (0.000-0.034)
[2024-10-07] MEDS: ASPIRIN 81 MG CHEWABLE TABLET 324 MG PO (21:35)
[2024-10-07 21:55] VITALS: PULSE 96
--- OUTSIDE RECORDS SUMMARY | 2024-10-07 22:02 | XMS_ITS | Clinical Summary ---
Author Organization [facility] Address [address] [place] [address] Care Team Providers Care Hazardous Substances Scientist Name Role Phone Rosy Rodney MD Primary Care Provider [phone] Allergies No known active allergies Medications ondansetron [...] Comments Blood Pressure 109/69 07/03/2023 12:03 PM HUMANITIES AND LANGUAGES PROFESSOR Pulse 105 07/03/2023 12:03 PM HUMANITIES AND LANGUAGES PROFESSOR Temperature 36.8 C (98.2 F) 07/03/2023 12:03 PM HUMANITIES AND LANGUAGES PROFESSOR Respiratory Rate 20 07/03/2023 12:03 PM HUMANITIES AND LANGUAGES PROFESSOR Oxygen Saturation 100% 07/03/2023 12:03 PM HUMANITIES AND LANGUAGES PROFESSOR Inhaled Oxygen Concentration - - Weight 65.9 kg (145 lb 4.5 oz) 07/03/2023 4:14 A M HUMANITIES AND LANGUAGES PROFESSOR Height 167.6 cm (5' 6 ) 07/03/2023 4:14 AM HUMANITIES AND LANGUAGES PROFESSOR Body Mass Index 23.45 07/03/2023 4:14 AM HUMANITIES AND LANGUAGES PROFESSOR Plan of Treatment Health Maintenance Due Date [...] patient's age to complete this topic Insurance [employer] Advance Directives * Full Code (Latest Code Status on File) Date Activated Date Inactivated Comments 07/03/2023 3:52 AM 07/03/2023 3:09 PM Care Teams Hazardous Substances Scientist Relationship Specialty Start Date End Date Rosy Rodney MD [address] [place] [address] [place] [address] PCP - General FAMILY PRACTICE 07/03/23
--- OUTSIDE RECORDS SUMMARY | 2024-10-07 22:02 | XMS_ITS | Clinical Summary ---
Author Organization [facility] [employer] Address [address] [place] [address] Care Team Providers Care Structures Technician Name Role Phone Rosy Rodney MD Primary Care Provider [phone] Source Comments [facility],non-owned Affiliates and Associated Physician Practices is amultiple site organization consisting of ambulatory clinics and hospital sitesin [place], [place], [place] and [place]. This disclosure is being madepursuant to the Care Everywhere program and may not contain all information available regarding this patient. Last updated 18.[facility] Active Problems Problem Noted Date Diagnosed Date [...] age to complete this topic Care Teams Structures Technician Relationship Specialty Start Date End Date Rosy Rodney MD [address] [place] [id number] PCP - General 08/21/15
--- OUTSIDE RECORDS SUMMARY | 2024-10-07 22:02 | XMS_ITS | CONTINUITY OF CARE DOCUMENT ---
Author Name fabian peralta Address Unknown Organization [facility] Address [address] [place] [address] [address] [place] [address] Phone [phone] Care Team Providers Care Electrophysiology Scientist Name Role Phone Hari FERNANDES, Alis Unavailable KATHY FERNANDES, KAILA Sotomayor Unavailable KATHY FERNANDES, [...] In-person encounter Office Visit Alis Noriega MD [facility] Bipolar disorderPTSD - In-person encounter Office Visit Alis Noriega MD [facility] Bipolar disorder - In-person encounter Office Visit Alis Noriega MD [facility] Office - In-person encounter Office Visit Alis Noriega MD [facility] Office - In-person encounter Office Visit Alis Noriega MD [facility] Hypotension - In-person encounter Office Visit Alis Noriega MD [facility] Office - In-person encounter Office Visit Raheem Elliott MD [facility] Chest pain-type to be determined - In-person encounter Office Visit Alis Noriega MD [facility] - In-person encounter Office Visit Alis Noriega MD [facility] Cardiology examinationTobacco abuseSinus tachycardiaShortness of breathHypothyroidism [...] Jocelyn Robles l height E&M 66.5 [in_i] Jocelynpamela Robles andrea Body Mass Index (Ratio) 20.03 [...] blood pressure, diastolic 60 mm[Hg] Kr [facility] [place] blood pressure, systolic 78 mm[Hg] Kri sty Jodi pulse rate 82 /min [facility] oxygen saturation, oximetry 99 % [facility] weight E&M 122 [lb_av] [facility] respiratory [...] betancourt Marly blood pressure, systolic 110 mm[Hg] Hlida stitushar Marly pulse rate 103 /[facility] 98 % [facility] height E&M 66.5 [in_i] [facility] Marly respiratory rate E&M 18 /min Hildastit y Marly weight E&M 116 [lb_av] [facility] ALLERGIES No Known Drug Allergies HISTORY OF [...] s: Single 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 P atient has been counseled to quit. 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 Smoking History: P atient currently smokes every [...] s: Single 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 Smoking History: P atient currently smokes every [...] education and counseling yes Alis Noriega MD number of years as a smoker 15 a [facility] Marly smoking history, tot al pack/day 1/2 [facility] Current every day smoker C ronninegin Luke FUNCTIONAL STATUS Date Observation Value Provider periodic limb movement index present (1) Geeta Cobian FAMILY HISTORY Family Member Condition First Degree Blood Relative No Known Fam khris History INSURANCE PROVIDERS Payer name Policy type / Coverage type [facility] ID [employer] MEDICAID (2) Medicaid [id number] [facility] [employer] [phone] [id number] ADVANCE DIRECTIVES Name Date DISCUSSED - NO [...] TID to hopefully impove her symptoms. Alis Norigea MD Cardiology :Chest pa in persits. The [...] Stress Routine Mobile Cardiac Tele DLCO - 99983 FRC - 31997 FVC - 81354 Complete Echo HISTORY OF PROCEDURES Procedure Date [...] ed FVC / MVV with bronchodilator - 99161 Alis Noriega MD completed BLOOD COUNT HEMOGLOBIN Alis Noriega MD completed FRC - 93428 Alis Noriega MD comple cecelia SpO2 w/o 6min walk/titration Alis Noriega MD completed DLCO - 82002 Alis Noriega MD compl eted EKG Alis Noriega MD complet ed
--- NOTE | 2024-10-07 23:14 | ED_ITS ---
HPI - Chest Pain General Chief Complaint: Chest Pain Stated Complaint: chest pain for 1 hour Time Seen by Provider: 10/07/24 21:51 History of Present Illness HPI narrative: Patient is a 38-year-old female who presents ER with reports of chest pain and racing heart. She is located at the sternum sharp it lasted for 1 minute. Associated with her heart rate being elevated to the 120s in down to low 40s. No syncope. Ossific history of anxiety. Reports she was feeling but had been doing well and has been drinking alcohol free for several weeks. She has not any medication at this time to control her heart rate which she reports is a chronic issue and she was told was caused by anxiety. No runny nose or sore throat. No cough. No pain with deep breath. Pain free at this time. Related Data Home Medications ?Medication ?Instructions ?Recorded ?Confirmed ?Last Taken ?Type levothyroxine 200 mcg tablet 200 mcg PO DAILY 10/17/22 04/06/24 Unknown History albuterol sulfate 90 mcg/actuation 1 inh inhalation DIRECTED 10/31/23 04/06/24 Unknown History aerosol inhaler Allergies Allergy/AdvReac Type Severity Reaction Status Date / Time latex AdvReac Mild Rash Verified 04/06/24 09:04 Review of Systems 2 Review of Systems: All systems reviewed & are unremarkable except as noted in HPI and below Constitutional: Constitutional: Reports no additional constitutional complaints Cardiovascular: Cardiovascular: Reports no additional cardiovascular complaints Respiratory: Respiratory: Reports no additional respiratory complaints Gastrointestinal: Gastrointestinal: Reports no additional gastrointestinal complaints Musculoskeletal: Musculoskeletal: Reports no additional musculoskeletal complaints [facility] Past Medical History Medical History ADHD Anxiety Asthma Bipolar 1 disorder Borderline personality disorder Depression Family History Family History Other Depression Hypertension Social History Social History Smoking status: Current every day smoker Alcohol intake: current Gender identity (if verbalized by the patient): Female Exam 2 Narrative: GENERAL: Well-appearing, well-nourished, and in no acute distress. HEAD: Normocephalic, atraumatic. ENT: Mucous membranes moist. CHEST: Clear to auscultation. No respiratory distress. HEART: Regular rate and rhythm. Normal peripheral pulses. ABDOMEN: Soft, nontender, nondistended. EXTREMITIES: Normal range of motion. No edema. SKIN: Warm, dry, no rash. NEURO: Alert and oriented x3. PSYCH: Normal mood and affect. Course Course Emergency Course: Resting comfortably. Troponin negative x1. Will check a 2nd troponin. EKG reassuring. Suspect anxiety. Trop negative x 2. D/c. Vital Signs Vital signs: Vital Signs Temperature 97.4 F L 10/07/24 20:27 Pulse Rate 91 10/07/24 20:27 Respiratory Rate 20 10/07/24 20:27 Blood Pressure 122/80 10/07/24 20:27 Pulse Oximetry 100 10/07/24 20:27 Oxygen Delivery Room Air 10/07/24 20:27 Temperature 97.4 F L 10/07/24 20:27 Pulse Rate 95 10/08/24 01:21 Respiratory Rate 18 10/08/24 01:21 Blood Pressure 100/62 10/08/24 01:21 Pulse Oximetry 98 10/08/24 01:21 Oxygen Delivery Room Air 10/07/24 20:27 MDM - Chest Pain Lab Data 10/07/24 20:41 10/07/24 20:41 Labs: Lab Results 10/07/24 10/08/24 Range/Units 20:41 00:52 WBC 10.9 H (4.5-10.0) K/mm3 RBC 3.91 L (4.2-5.4) M/mm3 Hgb 12.8 (12.0-15.0) g/dL Hct 38.9 (37.0-47.0) % MCV 99.5 (80-100) fl MCH 32.7 (26-34) pg MCHC 32.9 (32-36) g/dl RDW 13.0 (11.5-14.5) % Plt Count 306 (150-375) k/mm3 MPV 9.4 (7.4-10.4) fl Immature Gran % (Auto) 0.3 (0-0.5) % Neut % (Auto) 56.0 (45.5-73.1) % Lymph % (Auto) 31.8 (18.3-44.2) % Gosper % (Auto) 8.8 H (2.6-8.5) % Eos % (Auto) 2.2 (0-4.4) % Baso % (Auto) 0.9 (0.2-1.2) % Lymph # (Auto) 3.47 H (0.9-3.2) K/mm3 Gosper # (Auto) 1.0 H (0.1-0.6) K/mm3 Eos # (Auto) 0.2 (0-0.3) K/mm3 Baso # (Auto) 0.1 (0.0-0.1) K/mm3 Abs Immat Gran (auto) 0.03 (0.00-0.031) K/mm3 Absolute Neuts (auto) 6.1 (1.3-6.7) K/mm3 Absolute Nucleated RBC 0.000 (0.0-0.012) K/mm3 Nucleated RBC % 0.0 (0.0-0.2) % PT 12.4 (11.1-14.7) Seconds INR 0.9 APTT 30.6 (22.3-36.8) Seconds Sodium 141 (137-145) mmol/L Potassium 4.0 (3.4-5.0) mmol/L Chloride 102 (98-107) mmol/L Carbon Dioxide 29 (22-30) mmol/L Anion Gap 10 (4-12) mmol/L BUN 18 H (7-17) mg/dL Creatinine 0.84 (0.7-1.0) mg/dL Estim Creat Clear Calc Not Reportable Estimated GFR > 60 (59 - ) Glucose 78 (65-110) mg/dL Calcium 10.1 (8.4-10.2) mg/dL Total Bilirubin 0.3 (0.2-1.3) mg/dL AST 40 H (14-36) U/L ALT 29 (6-35) U/L Alkaline Phosphatase 56 (38-126) U/L Troponin I < 0.012 < 0.012 (0.000-0.034) ng/mL Total Protein 8.0 (6.3-8.2) g/dL Albumin 4.9 (3.5-5.1) g/dL Lipase 290 (23-300) U/L Imaging Data Radiologist's impression: ITS Impressions Chest X-Ray 10/07/24 21:03 IMPRESSION: No acute cardiopulmonary process. ECG Data EKG #1: ECG completion date: 10/07/24 ECG completion time: 20:30 EKG Interpretation: normal rate (89), sinus rhythm, no ST changes, normal QRS, normal QT and NL axis Discharge Plan Discharge Clinical Impression: Atypical chest pain Patient Disposition: Home, Self-Care Condition: Stable Instructions: Chest Pain (ED) Additional Instructions: Please return to the emergency department if you develop severe and persistent chest pain, difficulty breathing, dizziness, leg swelling or if you are coughing up blood as these can be signs of a medical emergency. Please call your doctor for a follow up appointment to determine the need for further testing. Patient Language: Chilean Prescriptions: No Action albuterol sulfate 90 mcg/actuation HFA aerosol inhaler 1 inh INHALATION DIRECTED levothyroxine 200 mcg tablet 200 mcg PO DAILY amoxicillin 875 mg tablet 875 mg PO Q12H Qty: 14 0RF ibuprofen 600 mg tablet 600 mg PO TID PRN (Reason: fever or pain) Qty: 30 0RF Follow-up/Referrals: UNKNOWN,DOCTOR [Primary Care Provider] - 1 Week Quality HEART score for chest pain patients History: slightly suspicious ECG: normal Age: < or = to 45 years Risk factors: no risk factors known Troponin: < or = to 1x normal limit Heart score: 0
--- NOTE | 2024-10-08 00:44 | ECG_ITS ---
Test Date: 2024-10-08 00:58:38 Measurements Intervals [place] Rate: 90 P: 71 [place]: 171 QRS: 69 QRSD: 91 T: 72 QT: 358 QTc: 438 Interpretive Statements SINUS RHYTHM INCOMPLETE RIGHT BUNDLE BRANCH BLOCK [90+ ms QRS DURATION, TERMINAL R IN V1/V2, 40+ ms S IN I/aVL/V4/V5/V6] SEPTAL MYOCARDIAL INFARCTION , OF INDETERMINATE AGE Compared to ECG 10/07/2024 20:30:15 NO SIGNIFICANT CHANGES Electronically Signed On 10-08-2024 16:08:29 CDT by Mindy Camilo M.D.
[2024-10-08 01:18] LABS: Troponin I < 0.012 ng/mL (0.000-0.034)
[2024-10-08 01:21] VITALS: BP 100/62; PULSE 95; RESP 18; O2SAT 98
--- NOTE | 2024-10-08 01:52 | PC.NURSE ---
rn spoke to stephanie and will send someone to pick her up.
[2024-10-08 02:18] VITALS: BP 110/91; PULSE 81; RESP 18; O2SAT 100
== END 2024-10-08 02:00 | disposition home or self-care (01) ==
PROVIDERS: Emergency Medicine; Emergency Provider Emergency Medicine
DX: R07.89 Other chest pain (principal); F90.9 Attention-deficit hyperactivity disorder, unspecified type; J45.909 Unspecified asthma, uncomplicated; F31.9 Bipolar disorder, unspecified; F41.8 Other specified anxiety disorders; F17.200 Nicotine dependence, unspecified, uncomplicated
CPT/HCPCS: 36415; 71046; 80053; 83690; 84484; 85025; 85610; 85730; 93005; 99284; A9270